=== PATIENT | female | born 1970 | race Caucasian/White ===

== ENCOUNTER 2018-09-17 08:09 | Outpatient (CLI) | payer BC, SELFPAY ==
--- NOTE | 2018-09-17 08:55 | DI.MAMMO_ITS ---
SYMPTOMS/DIAGNOSIS: SCREENING, Z12.31, 95-pound weight loss in last year MAMMOGRAMS: Mammograms were interpreted according to the usual protocol including computer analysis with CAD system, tomosynthesis and C view imaging. Comparison is with the prior examinations. No suspicious masses or microcalcifications are seen. There is increased breast asymmetry in the upper central left breast when compared with the prior examination. This may be due to the patient's weight loss. Spot compression views requested for further evaluation. Ultrasound may be indicated at that time. The skin and axillae are unremarkable. IMPRESSION: Additional views of the left breast as described above. Category 0, breast density C. MQSA ASSESSMENT OF FINDINGS: Incomplete: Needs additional imaging evaluation. Category 0. Patient will receive a letter notifying them of these results. Bi-RADS category C. The breasts are heterogeneously dense, which may obscure small masses.
== END 2018-09-17 08:29 ==
PROVIDERS: PCP Nurse Practitioner Family; Visit Provider Nurse Practitioner Family
DX: Z12.31 Encounter for screening mammogram for malignant neoplasm of breast (principal); R92.8 Other abnormal and inconclusive findings on diagnostic imaging of breast; R63.4 Abnormal weight loss
CPT/HCPCS: 77063; 77067

== ENCOUNTER 2018-09-24 00:59 | Outpatient (CLI) | payer BC, SELFPAY ==
--- NOTE | 2018-09-24 10:17 | DI.COMBO_ITS ---
SYMPTOMS/DIAGNOSIS: F/U ABNORMAL MAMMO, INCREASED BREAST ASYMMETRY UPPER CENTRAL LEFT BREAST ADDITIONAL MAMMOGRAPHIC VIEWS AND LEFT BREAST ULTRASOUND: Follow-up craniocaudad and mediolateral compression spot films of the left breast were obtained today and reveal heterogeneous fibroglandular densities. No discrete mass is seen. At ultrasound, there is a 3 mm 12 o'clock cyst approximately 1 cm from the nipple. No solid nodule is identified. SUMMARY: No evidence of malignancy, category 2. Yearly screening mammography is recommended. Breast density C. MQSA ASSESSMENT OF FINDINGS: Negative with benign findings. Category 2. Patient will receive a letter notifying them of these results. Bi-RADS category C. The breasts are heterogeneously dense, which may obscure small masses.
== END 2018-09-24 01:19 ==
PROVIDERS: PCP Nurse Practitioner Family; Visit Provider Nurse Practitioner Family
DX: Z12.31 Encounter for screening mammogram for malignant neoplasm of breast (principal); R92.8 Other abnormal and inconclusive findings on diagnostic imaging of breast; N60.02 Solitary cyst of left breast
CPT/HCPCS: 76642; 77063; 77067

== ENCOUNTER 2019-04-06 11:56 | Outpatient (REF) | payer OTHER, SELFPAY ==
[2019-04-06 21:05] LABS: BUN 14 mg/dL (7-18); CREATININE 0.71 mg/dL (0.55-1.02); Calcium 9.3 mg/dL (8.5-10.1); Calculated LDL 132 mg/dL (<100); Chloride 103 mmol/L (98-107); Cholesterol 220 mg/dL (<200); Glucose 89 mg/dL (74-106); HDL Cholesterol 73 mg/dL (40-60); Potassium 4.5 mmol/L (3.5-5.1); Sodium 141 mmol/L (136-145); Triglyceride 76 mg/dL (<150)
== END 2019-04-06 12:16 ==
LOC: NCHCN 11:56
PROVIDERS: PCP Nurse Practitioner Family; Visit Provider Nurse Practitioner Family
DX: E78.5 Hyperlipidemia, unspecified (principal); I10 Essential (primary) hypertension; E66.9 Obesity, unspecified; N39.3 Stress incontinence (female) (male); F41.8 Other specified anxiety disorders; R05 Cough
CPT/HCPCS: 80048; 80061

== ENCOUNTER 2019-10-19 00:44 | Outpatient (CLI) | payer OTHER, SELFPAY ==
--- NOTE | 2019-10-19 | DI.MAMMO_ITS ---
EXAM: MAMMO SCREENING CLINICAL HISTORY: SCREENING, YEARLY,Z12.31 TECHNIQUE: Mammograms were interpreted according to the usual protocol including computer analysis w [employer] CAD system, tomosynthesis and C-view imaging. COMPARISON: FINDINGS: The breasts are heterogeneously dense. There are scattered a punctate microcalcifications seen throu ghout both breasts. No dominant mass seen. Comparison with prior examinations including August 2018 s hows no gross interval change appearance of the scattered microcalcifications. No new significant cl umped microcalcification seen. IMPRESSION: No specific evidence of malignancy at this time. Routine screening examinations are suggested at yea rly intervals due to the family history of breast carcinoma. BI-RADS Cat 1 - Negative Breast Density - Category C - Heterogeneously dense
== END 2019-10-19 01:04 ==
PROVIDERS: PCP Nurse Practitioner Family; Visit Provider Nurse Practitioner Family
DX: Z12.31 Encounter for screening mammogram for malignant neoplasm of breast (principal); R92.2 Inconclusive mammogram; R92.0 Mammographic microcalcification found on diagnostic imaging of breast
CPT/HCPCS: 77063; 77067

== ENCOUNTER 2019-11-20 08:09 | Day surgery (SDC) | payer OTHER, SELFPAY ==
[2019-11-20 08:20] VITALS: BP 141/98; PULSE 115; RESP 20; TEMP 36.4; O2SAT 100
[2019-11-20] MEDS: Lactated Ringers 1,000 ML 80 ML IV (08:40)
--- NOTE | 2019-11-20 09:38 | W.PM.DSUDISC ---
Discharge Plan Disposition Patient Disposition: HOME Condition: Good Discharge Details Reason For Visit: Colonoscopy Attending Provider: Dianna Otero Primary Care Provider: Adelia Esquivel Home Meds and New Rx's Prescriptions: Continued bupropion HCl 100 mg tablet sustained-release 12 hr 100 mg PO TID RF: 0 losartan 25 mg tablet 25 mg PO BID RF: 0 benzonatate 100 mg capsule 100 mg PO BID PRNRF: 0 cetirizine [Zyrtec] 10 mg tablet 10 mg PO DAILY RF: 0 multivitamin Capsule 1 cap PO DAILY RF: 0 Mirena 20 mcg/24 hours (5 yrs) 52 mg intrauterine device 1 device IY ONCE RF: 0 albuterol sulfate [Ventolin HFA] 90 mcg/actuation HFA aerosol inhaler 2 puff IH Q6H PRNRF: 0 fluticasone propionate 50 mcg/actuation spray,suspension 1 spray INTRANASAL DAILY PRNRF: 0 Discontinued polyethylene glycol 3350 17 gram/dose powder 238 g PO ONCE Qty: 238 RF: 0 bisacodyl [Dulcolax (bisacodyl)] 5 mg tablet,delayed release (DR/EC) 5 mg PO ONCE Qty: 4 RF: 0 Discharge Instructions Additional Instructions: Findings: Three small colon polyps were removed. My office will send a letter with biopsy results. Follow up: Plan for a colonoscopy in 5 years pending biopsy results. Please call if you develop: fevers >101.5 Nausea or Vomiting Abdominal pain that is not transient DAY SURGERY UNIT POST COLONOSCOPY INSTRUCTIONS 1. Because there will be medication in your system for the next 24 hours, you may feel a little sleepy. Your coordination will be affected. Therefore: a. Do not drive or operate dangerous equipment for 24 hours. b. Do not drink alcohol beverages for 24 hours (not even beer). c. Plan to go home and rest for the day. 2. Generally there are no restrictions on your activity after a day or so has gone by, but you may feel a bit fatigued for a few days. 3 After you arrive home you may have a light meal and return to a normal diet as you can tolerate it without feeling sick to your stomach. 4. After surgery, you may feel pain or discomfort. This should be only transient, but if it persists please contact your doctor. 5. If there are any questions regarding the findings of your procedure, please feel free to contact your doctor. 6. If you are unable to contact your doctor with a problem, contact the hospital at [phone]. 7. Continue all your regular medications unless directed otherwise. I understand the above instructions and have no questions. Signature of Patient or Responsible Adult Escort Date/Time Name of Responsible Adult Escort Signature of Nurse Date/Time Activity:: Activity as Tolerated Diet:: As Tolerated Discharge Orders Discharge Orders: Discharge Order (Routine); Ordered 11/20/19 Ordered By: Dianna Otero DS: Diagnosis Discharge Diagnosis (1) Colon polyps: Status: Acute
--- NOTE | 2019-11-20 09:39 | W.COLOREPORT ---
Date of service: 11/20/19 Time of Service: 10:30 Colonoscopy Report Date of procedure: 11/20/19 Pre-op diagnosis general: Screening Post-op diagnosis procedure note: other (Descending and sigmoid polyps) Procedure: Colonoscopy with cold forceps polypectomy Surgeon: Dianna Otero Anesthesia proc note operative: MAC Indications: This 49 year old woman presents for her first colonoscopy. She has no symptoms or FH colon cancer. Procedure Description: The patient was placed in the left Tuttle position. Propofol was titrated to sedation. Digital rectal examination revealed no abnormalities. The scope was advanced to the cecum without difficulty. The ileocecal valve and appendiceal orifice were clearly identified. The prep was good. The scope was slowly withdrawn over the course of greater than 6 minutes with no abnormalities seen in the ascending or transverse colon. In the distal descending colon, two less than 1cm polyps were removed with the cold forceps and sent in the same specimen container. A diminuitive polyp was removed from the sigmoid colon. The rectum was normal including on retroflexed view. The patient tolerated the procedure well and was stable to recovery. Plan for follow up colonoscopy in 5 years or sooner if symptoms indicate.
--- NOTE | 2019-11-20 10:07 | BOWEL_PTH ---
PATIENT: Lliliam Munguia LOC: [facility] U#:[id number] AGE/SX: 49/F ROOM: RE11/20/[address]: Dianna Otero MD : 1970 BED: DIS: 11/20/2019 SPEC #: [id number] RECD: 11/20/19 12:26 STATUS: CLEMENCIA REQ #: [id number] ADAM: 11/20/19 10:[address]: Dianna Otero DEPT: Surgical Specimen RECD BY: Neda Cannon ENTERED: 11/20/19 12:27 SP TYPE: Bowel OTHR DR: Adelia Esquivel Tissues: 1 - BIOPSY BOWEL 2 - BIOPSY BOWEL Procedures: GROSS AND MICRO LEVEL 4 Comments: [id number]
== END 2019-11-20 11:15 | disposition home or self-care (01) ==
PROVIDERS: PCP Nurse Practitioner Family; Visit Provider Surgery
PROC: 0DJD8ZZ Inspection of Lower Intestinal Tract, Via Natural or Artificial Opening Endoscopic (ICD-10-PCS; CPT 45378; principal; 2019-11-20 09:30)
DX: Z12.11 Encounter for screening for malignant neoplasm of colon (principal); D12.4 Benign neoplasm of descending colon; D12.5 Benign neoplasm of sigmoid colon
CPT/HCPCS: 45380; 88305; J2001

== ENCOUNTER 2019-12-10 17:03 | Emergency (ER) | payer OTHER, SELFPAY ==
[2019-12-10 17:04] VITALS: BP 161/71; PULSE 91; RESP 22; TEMP 36.6; O2SAT 99
--- NOTE | 2019-12-10 18:08 | W.ED.GENAD ---
Discharge Plan Disposition Patient Disposition: HOME Condition: Stable Discharge Details Clinical Impression: Closed fracture of distal end of left fibula Primary Care Provider: Adleia Esquivel ED Provider: Romaine Lipscomb Home Meds and New Rx's Prescriptions: Continued bupropion HCl 100 mg tablet sustained-release 12 hr 100 mg PO TID RF: 0 losartan 25 mg tablet 25 mg PO BID RF: 0 benzonatate 100 mg capsule 100 mg PO BID PRNRF: 0 cetirizine [Zyrtec] 10 mg tablet 10 mg PO DAILY RF: 0 multivitamin Capsule 1 cap PO DAILY RF: 0 Mirena 20 mcg/24 hours (5 yrs) 52 mg intrauterine device 1 device IY ONCE RF: 0 albuterol sulfate [Ventolin HFA] 90 mcg/actuation HFA aerosol inhaler 2 puff IH Q6H PRNRF: 0 fluticasone propionate 50 mcg/actuation spray,suspension 1 spray INTRANASAL DAILY PRNRF: 0 Discharge Instructions Instructions: Ankle Fracture (ED) Additional Instructions: Please take acetaminophen (tylenol) - 650mg every 6 hours by mouth as needed for pain. Please use orthopedic boot and crutches until cleared by orthopedics. Please contact orthopedics to arrange follow-up. Call tomorrow. Return to the ER for any worsening or new concerning symptoms. Referrals: [facility] [Provider Group] Discharge Data Discharge Date/Time-TO BE ENTERED AT DEPARTURE: 12/10/19 19:16 Medical Decision Making 49-year-old female here after inversion injury on step just prior to arrival, pain with ambulation and tender to palpation lateral malleolus. No proximal lower leg tenderness. Neurovascular intact distally. X-ray of the left ankle was reviewed and interpreted by radiology: Distal left fibular fracture. Equalizer orthopedic walking boot was applied and crutches were provided. Patient was advised to weight-bear as tolerated. Usual and customary discharge instructions were reviewed with the patient. Patient advised to follow-up with orthopedics. [facility] General Date/Time Provider Initiated Documentation: 12/10/19 17:22. Related Data Home Medications Medication Instructions Recorded Confirmed albuterol sulfate 90 mcg/actuation 2 puff IH Q6H PRN 04/21/19 12/10/19 aerosol inhaler benzonatate 100 mg capsule 100 mg PO BID PRN 04/21/19 12/10/19 bupropion HCl 100 mg tablet,12 hr 100 mg PO TID tab 04/21/19 12/10/19 sustained-release cetirizine 10 mg tablet 10 mg PO DAILY 04/21/19 12/10/19 levonorgestrel 20 mcg/24 hours (5 1 device IY ONCE 04/21/19 12/10/19 yrs) 52 mg intrauterine device losartan 25 mg tablet 25 mg PO BID 04/21/19 12/10/19 multivitamin 1 cap PO DAILY 04/21/19 12/10/19 fluticasone propionate 1 spray INTRANASAL DAILY PRN 11/17/19 12/10/19 Allergies Allergy/AdvReac Type Severity Reaction Status Date / Time NSAIDS (Non-Steroidal AdvReac Other (See Unverified 12/10/19 17:08 Anti-Inflamma Comment) General Stated Complaint: Orthopedic JOSE: 4 [facility] Medical History (Updated 12/10/19 @ 18:59 by Romaine Lipscomb MD) Anemia Anxiety Chronic cough Depression Dysmenorrhea Family history of breast cancer Food allergy not active Hyperlipidemia Hypertension Obesity not active Scalp lesion Stress incontinence not active Surgical History History of gastric bypass Social History (Updated 10/30/19 @ 14:15 by SHEILA Mas) Smoking/Tobacco Use Status: Never Alcohol Intake: never Drug use: Never Substance use type: does not use Do you feel safe at home: Yes Do you feel safe in your relationship?: Yes Exam Const General: no acute distress Cardio Rate: regular rate and not tachycardic Rhythm: regular rhythm Skin General skin exam: no rashes or lesions noted Neuro General: patient alert, patient awake and tone normal Extrem General: no edema Left lower extremity: lower leg Details: no tenderness and ankle Details: tenderness Location: of the lateral malleolus and swelling Details: laterally; no lacerations Course Vital Signs Vital signs: Vital Signs Temperature 36.6 C 12/10/19 17:04 Pulse 91 H 12/10/19 17:04 Respiratory Rate 22 12/10/19 17:04 Blood Pressure 161/71 H 12/10/19 17:04 Pulse Oximetry 99 12/10/19 17:04 Temperature 36.6 C 12/10/19 17:04 Temperature Source Skin 12/10/19 17:04 Pulse 91 H 12/10/19 17:04 Respiratory Rate 22 12/10/19 17:04 Respiratory Effort Non-Labored 12/10/19 17:06 Blood Pressure 161/71 H 12/10/19 17:04 Blood Pressure Position Sitting 12/10/19 17:04 Pulse Oximetry 99 12/10/19 17:04 Oxygen Delivery Method Room Air 12/10/19 17:04 Oxygen Flow Rate 0 12/10/19 17:04 Pain Level 6 12/10/19 17:12
--- NOTE | 2019-12-10 18:15 | DI.RAD_ITS ---
EXAM: XR ANKLE LT COMPLETE CLINICAL HISTORY: pain, injury TECHNIQUE: 2D digital imaging was performed. COMPARISON: No exams were available for comparison FINDINGS: BONES: There is a nondisplaced transverse fracture of the distal fibula. The fracture lies below the level of the talar dome. No bony destructive lesion is seen. JOINTS:The ankle mortise is normally aligned. SOFT TISSUE: Soft tissue swelling is seen about the ankle particularly laterally. IMPRESSION: Nondisplaced distal left fibular fracture. DATA REPOSITORY: RADIATION DOSE DELIVERED:
--- NOTE | 2019-12-10 18:24 | DI.VRAD_ITS ---
PROCEDURE INFORMATION: Exam: XR Left Ankle Exam date and time: 12/10/2019 6:11 PM Age: 49 years old Clinical indication: Patient HX: Patient fell today down last step of stairs. Lateral left ankle pain. TECHNIQUE: Imaging protocol: XR Left ankle. Views: 3 or more views. COMPARISON: No relevant prior studies available. FINDINGS: Bones/joints: There is a transverse fracture through the distal left fibula involving the articular surface. There is no definite comminution. No significant displacement. Soft tissues: There is soft tissue swelling in the lateral malleolar region. IMPRESSION: Distal left fibular fracture. Dictated and Authenticated by: Maria Clarke MD. Ordering:FERDINAND Gavin MD
[2019-12-10 19:16] VITALS: BP 128/72; PULSE 80; RESP 18; TEMP 36.6; O2SAT 99
== END 2019-12-10 19:16 | disposition home or self-care (01) ==
PROVIDERS: Emergency Provider Student in an Organized Health Care Education/Training Program; PCP Nurse Practitioner Family
DX: S82.62XA Displaced fracture of lateral malleolus of left fibula, initial encounter for closed fracture (principal); X50.9XXA Other and unspecified overexertion or strenuous movements or postures, initial encounter; I10 Essential (primary) hypertension
CPT/HCPCS: 27786; 73610; E0114; L4361

== ENCOUNTER 2019-12-24 11:27 | Outpatient (CLI) | payer OTHER, SELFPAY ==
--- NOTE | 2019-12-24 11:15 | DI.RAD_ITS ---
EXAM: XR ANKLE LT COMPLETE CLINICAL HISTORY: L ankle fx TECHNIQUE: COMPARISON: CR,XR XR ANKLE LT COMPLETE from 12/10/2019 FINDINGS: Three views were obtained and show previously described fracture of the distal fibula, no gross inter endy change in alignment of the fracture fragments comparison with previous examination December 09. The ankle mortise appears well maintained. IMPRESSION: RADIATION DOSE DELIVERED: Total DLP
== END 2019-12-24 11:47 ==
LOC: DIORS 11:29
PROVIDERS: PCP Nurse Practitioner Family; Referring Provider Nurse Practitioner Family; Visit Provider Physician Assistant
DX: S82.892A Other fracture of left lower leg, initial encounter for closed fracture (principal)
CPT/HCPCS: 73610

== ENCOUNTER 2020-01-08 10:55 | Outpatient (CLI) | payer OTHER, SELFPAY ==
--- NOTE | 2020-01-08 10:45 | DI.RAD_ITS ---
EXAM: XR ANKLE LT COMPLETE CLINICAL HISTORY: follow up fracture TECHNIQUE: 2D digital imaging was performed. COMPARISON: CR XR ANKLE LT COMPLETE from 12/24/2019 FINDINGS: BONES: There has been no change in alignment of the distal fibular fracture. The fracture line is st ill visualized. No new fracture or dislocation is present. No bony destructive lesion is seen. JOINTS:The ankle mortise is normally aligned. SOFT TISSUE: There is soft tissue swelling about the ankle. IMPRESSION: Stable distal fibular fracture. DATA REPOSITORY: RADIATION DOSE DELIVERED:
== END 2020-01-08 11:15 ==
PROVIDERS: PCP Nurse Practitioner Family; Referring Provider Nurse Practitioner Family; Visit Provider Student in an Organized Health Care Education/Training Program
DX: S82.492A Other fracture of shaft of left fibula, initial encounter for closed fracture (principal)
CPT/HCPCS: 73610

== ENCOUNTER 2020-02-05 04:57 | Outpatient (CLI) | payer OTHER, SELFPAY ==
[2020-02-05 12:09] LABS: Abs Immature Grans 0.01 10^3/uL (0.0-0.06); Absolute Basophil Count 0.03 10^3/uL (0.0-0.2); Absolute Eosinophil Count 0.11 10^3/uL (0.0-0.7); Absolute Lymphocyte Count 1.68 10^3/uL (1.2-3.4); Absolute Monocyte Count 0.46 10^3/uL (0.1-0.8); Basophils % 0.5; Eosinophils % 1.9; HCT 44.6 % (36.0-46.0); HGB 14.7 g/dL (11.2-15.7); Immature Grans % 0.2; MCH 31.7 pg (27.0-33.0); MCV 96.3 fL (80-95); MPV 9.9 fL (8.0-11.0); Monocytes % 7.9; Neutrophils % 60.5; Nucleated RBC 0 %; Platelet Count 253 10^3/uL (130-400); RBC 4.63 10^6/uL (3.93-5.22); RDW 11.7 % (11.7-14.6); RDW-SD 41.1 fL; WBC 5.79 10^3/uL (4.4-10.8)
[2020-02-05 12:34] LABS: Iron 112 ug/dL (50-170); Total Iron Binding Capacity 291 ug/dL (250-450); Transferrin Sat 38 % (15-50)
[2020-02-05 15:00] LABS: ALT 22 U/L (14-59); AST 15 U/L (15-37); Albumin 4.2 g/dL (3.4-5.0); Alkaline Phosphatase 60 U/L (46-116); BUN 16 mg/dL (7-18); Bilirubin, Total 0.5 mg/dL (0.2-1.0); CREATININE 0.92 mg/dL (0.55-1.02); Calcium 9.2 mg/dL (8.5-10.1); Chloride 103 mmol/L (98-107); Ferritin 62 ng/mL (8-252); Glucose 96 mg/dL (74-106); Sodium 141 mmol/L (136-145); TSH (W/Ref FT4) 0.84 uIU/mL (0.36-3.74); Total Protein 7.9 g/dL (6.4-8.2); Vitamin B12 1450 pg/mL (193-986)
[2020-02-05 15:06] LABS: Folate > 20.0 ng/mL (8.6-20.0)
[2020-02-08 05:19] LABS: Vitamin D 25 Total 53.7 ng/ml (30-100)
[2020-02-08 10:34] LABS: HIV-1/2 Ag & Ab Screen Negative (Negative)
[2020-02-08 10:55] LABS: Hepatitis C Ab w Rflx HCV PCR Negative (Negative)
[2020-02-08 10:56] LABS: Parathyroid Hormone,Intact 47 pg/mL (19-88)
[2020-02-10 12:03] LABS: Thiamine (Vitamin B1), WB 265 nmol/L (70-180)
== END 2020-02-05 05:17 ==
PROVIDERS: PCP Nurse Practitioner Family; Visit Provider Nurse Practitioner Family
DX: N95.1 Menopausal and female climacteric states (principal); R05 Cough; N39.3 Stress incontinence (female) (male); D64.9 Anemia, unspecified; I10 Essential (primary) hypertension; E78.5 Hyperlipidemia, unspecified; F41.8 Other specified anxiety disorders; E66.9 Obesity, unspecified; Z11.4 Encounter for screening for human immunodeficiency virus [HIV]; Z11.59 Encounter for screening for other viral diseases
CPT/HCPCS: 36415; 80053; 82306; 86803; 87389; 82607; 82728; 82746; 83540; 83550; 83970; 84425; 84443; 85025

== ENCOUNTER 2020-02-05 11:16 | Outpatient (CLI) | payer OTHER, SELFPAY ==
--- NOTE | 2020-02-05 10:30 | DI.RAD_ITS ---
EXAM: XR ANKLE LT COMPLETE INDICATION: f/u fracture. COMPARISON: CR XR ANKLE LT COMPLETE from 01/08/2020 TECHNIQUE: 2D digital imaging was performed. FINDINGS: There has been no change in the alignment of the lateral malleolar fracture. There has been some inc rease in healing since the prior exam. Some soft tissue swelling remains present. A heel spur is ag ain noted. DATA REPOSITORY: RADIATION DOSE DELIVERED:
== END 2020-02-05 11:36 ==
PROVIDERS: PCP Nurse Practitioner Family; Referring Provider Nurse Practitioner Family; Visit Provider Student in an Organized Health Care Education/Training Program
DX: S82.62XA Displaced fracture of lateral malleolus of left fibula, initial encounter for closed fracture (principal); M77.32 Calcaneal spur, left foot
CPT/HCPCS: 73610

== ENCOUNTER 2021-04-04 10:43 | Outpatient (REF) | payer BC, SELFPAY ==
[2021-04-04 14:24] LABS: Abs Immature Grans 0.01 10^3/uL (0.0-0.06); Absolute Basophil Count 0.02 10^3/uL (0.0-0.2); Absolute Eosinophil Count 0.06 10^3/uL (0.0-0.7); Absolute Lymphocyte Count 1.19 10^3/uL (1.2-3.4); Absolute Monocyte Count 0.34 10^3/uL (0.1-0.8); Absolute Neutrophil Count 2.87 10^3/uL (1.2-6.7); Basophils % 0.4; Eosinophils % 1.3; HCT 46.7 % (36.0-46.0); Immature Grans % 0.2; Lymphocytes % 26.5; MCH 30.9 pg (27.0-33.0); MCHC 32.1 % (32.0-36.0); MCV 96.3 fL (80-95); MPV 10.5 fL (8.0-11.0); Monocytes % 7.6; Nucleated RBC 0 %; Platelet Count 211 10^3/uL (130-400); RBC 4.85 10^6/uL (3.93-5.22); RDW 11.9 % (11.7-14.6); RDW-SD 42.6 fL; WBC 4.49 10^3/uL (4.4-10.8)
[2021-04-04 14:47] LABS: Iron 113 ug/dL (50-170); Total Iron Binding Capacity 320 ug/dL (250-450); Transferrin Sat 35 % (15-50)
[2021-04-04 15:17] LABS: ALT 24 U/L (14-59); AST 17 U/L (15-37); Albumin 4.3 g/dL (3.4-5.0); Alkaline Phosphatase 70 U/L (46-116); Anion Gap 8.9 mmol/L (3-11); BUN 12 mg/dL (7-18); Bilirubin, Total 0.4 mg/dL (0.2-1.0); CO2 28.1 mmol/L (21.0-32.0); CREATININE 0.7 mg/dL (0.55-1.02); Calcium 9.3 mg/dL (8.5-10.1); Calculated LDL 146 mg/dL (<100); Chloride 104 mmol/L (98-107); Cholesterol 239 mg/dL (<200); Ferritin 44 ng/mL (8-252); Glucose 87 mg/dL (74-106); HDL Cholesterol 73 mg/dL (40-60); Magnesium 2.2 mg/dL (1.8-2.4); Potassium 3.7 mmol/L (3.5-5.1); Sodium 141 mmol/L (136-145); TSH (W/Ref FT4) 1.31 uIU/mL (0.36-3.74); Total Protein 8.2 g/dL (6.4-8.2); Triglyceride 104 mg/dL (<150); Vitamin B12 909 pg/mL (193-986)
[2021-04-04 15:19] LABS: Folate > 20.0 ng/mL (8.6-20.0)
[2021-04-06 00:10] LABS: Vitamin D 25 Total 44.5 ng/mL (30-100)
== END 2021-04-04 10:44 | disposition home or self-care (01) ==
LOC: NCHCN 10:43
PROVIDERS: PCP Nurse Practitioner Family; Visit Provider Nurse Practitioner Family
DX: I10 Essential (primary) hypertension (principal); E78.5 Hyperlipidemia, unspecified; R05.8 Other specified cough; F41.8 Other specified anxiety disorders; N94.6 Dysmenorrhea, unspecified; E66.8 Other obesity; D64.9 Anemia, unspecified
CPT/HCPCS: 80053; 80061; 82306; 82607; 82728; 82746; 83540; 83550; 83735; 84443; 85025

== ENCOUNTER 2021-05-23 01:27 | Outpatient (CLI) | payer BC, SELFPAY ==
--- NOTE | 2021-05-23 | DI.MAMMO_ITS ---
Exam(s) MAMMO SCREENING EXAM: MAMMO SCREENING CLINICAL HISTORY: SCREENIG MAMMO FOR BREAST CANCER Z12.31 TECHNIQUE: Bilateral full field digital CC and MLO mammographic images were obtained with 3D tomosyn thesis and utilizing computer aided detection (CAD). COMPARISON: Available for comparison. FINDINGS: Masses/Architectural Distortion: None seen. Microcalcifications: No suspicious pleomorphic-type are seen. Skin Thickening/Nipple Retraction: None. IMPRESSION: 1. No significant interval change with no specific features of malignancy noted. 2. Unless there is more urgent need, screening mammography is recommended, as per [employer] guidelines. BI-RADS Category 1 - Negative Breast Density - Category C - Heterogeneously dense Breast density category C or D implies that the patient has dense breast tissue. Dense breast tissue is very common and is not abnormal but dense breast tissue can make it harder to find cancer on a ma mmogram. Also, dense breast tissue may increase their breast cancer risk. This information about the result of the mammogram report was provided to the patient to raise their awareness. Use this report when you speak with the patient about their risks for breast cancer, which includes their family hist ory. At that time, you may recommend for more screening tests (Ultrasound or MRI) as they might be us eful based on their risk. A negative radiographic report should not delay biopsy if a dominant or clinically suspicious mass is present. Up to ten percent of cancers are not identified on mammography. A negative report may reinforce clinical impression. Adenosis and dense breasts may obscure an underlying neoplasm. False positive reports average 6 to 10%. Patient will receive a letter notifying them of these results.
== END 2021-05-23 01:47 ==
PROVIDERS: PCP Nurse Practitioner Family; Visit Provider Nurse Practitioner Family
DX: Z12.31 Encounter for screening mammogram for malignant neoplasm of breast (principal)
CPT/HCPCS: 77063; 77067

== ENCOUNTER 2021-07-21 09:24 | Outpatient (REF) | payer BC, SELFPAY ==
--- NOTE | 2021-07-21 08:45 | PAPFT_PTH ---
PATIENT: Lilliam Munguia LOC: NCN #:[id number] AGE/SX: 51/F ROOM: RE07/21/[address]: Adelia Esquivel : 1970 BED: DIS: 07/21/2021 SPEC #: [id number] RECD: 07/21/21 17:06 STATUS: CLEMENCIA TRAN #: [id number] ADAM: 07/21/21 08:[address]: Adelia Esquivel DEPT: [facility] Cytology RECD BY: Neda Cannon Tissues: 1 - CX/ENDOCX FOR PAP SMEARS Procedures: PAP THIN PREP/UVM Screening HPV DNA PROBE Comments: [id number]
== END 2021-07-21 09:25 | disposition home or self-care (01) ==
LOC: NCHCN 09:24
PROVIDERS: PCP Nurse Practitioner Family; Visit Provider Nurse Practitioner Family
DX: Z12.4 Encounter for screening for malignant neoplasm of cervix (principal); Z11.51 Encounter for screening for human papillomavirus (HPV); Z00.00 Encounter for general adult medical examination without abnormal findings; Z01.419 Encounter for gynecological examination (general) (routine) without abnormal findings
CPT/HCPCS: 88142; 87624

== ENCOUNTER 2022-01-13 19:37 | Outpatient (REF) | payer BC, SELFPAY ==
--- OUTSIDE RECORDS SUMMARY | 2022-01-13 19:38 | XMS_ITS | Encounter Summary ---
:1970 Author Organization [facility] [place] [place] [address] Care Team Providers Name Role Phone Adelia Esquivel APRN Primary Care Provider [phone] Encounter Details Date Type Department Care Team Description 06/07/2020 Telephone General Surgery at [facility] [place] [phone] Social History Tobacco Use Types Packs/Day Years Used Date Smoking Tobacco: Never Smokeless Tobacco: Never Alcohol Use Standard Drinks/Week Comments No 0 (1 standard drink = 0.6 oz pure alcoho l) Sex Assigned at Date Recorded Not on file documented as of this encounter Miscellaneous Notes Telephone Encounter - Connie Smith - 06/07/2020 9:54 AM EDT Left message to see if patient is interested in scheduling a annual follow-up visit. I asked them togive us a call back to set up an appointment and let them know that I will be mailing them a letter in the mail. documented in this encounter Plan of Treatment Not on filedocumented as of this encounter Visit Diagnoses Not on filedocumented in this encounter Care Teams Certified Personal Finance Counselor Relationship Specialty Start Date End Date Adelia Esquivel APRN PCP - General Family Medicine 09/30/17 [address] [place] [address] documented as of this encounter
--- OUTSIDE RECORDS SUMMARY | 2022-01-13 19:38 | XMS_ITS | Encounter Summary ---
:1970 [place] [address] Care Team Providers Name Role Phone Adelia Esquivel APRN Primary Care Provider [phone] Encounter Details Date Type Department Care Team Description 05/27/2019 Telephone General Surgery at [facility] [place] [place] [phone] Social History Tobacco Use Types Packs/Day Years Used Date Smoking Tobacco: Never Smokeless Tobacco: Never Alcohol Use Standard Drinks/Week Comments No 0 (1 standard drink = 0.6 oz pure alcoho l) Sex Assigned at Date Recorded Not on file documented as of this encounter Miscellaneous Notes Telephone Encounter - Genesis Zamora - 05/27/2019 10:19 AM EDT Spoke with Lilliam re: her upcoming BSP appt on 06/14. She would like to postpone it for now, phone visit was offered but declined. Will follow up with her at a later date. Recall was entered documented in this encounter Plan of Treatment Not on filedocumented as of this encounter Visit Diagnoses Not on filedocumented in this encounter Care Teams Lapping Machine Tender Relationship Specialty Start Date End Date Adelia Esquivel APRN PCP - General Family Medicine 09/30/17 [address] [place] [address] documented as of this encounter
--- OUTSIDE RECORDS SUMMARY | 2022-01-13 19:38 | XMS_ITS | Encounter Summary ---
:1970 Author Organization [facility] [place] [address] Care Team Providers Name Role Phone Adelia Esquivel APRN Primary Care Provider [phone] Reason for Visit Reason Comments Follow-up s/p bariatric surgery Encounter Details Date Type Department Care Team Description 11/19/2018 Office Visit General Surgery at Clementina Casanova APRN [facility] [address] [facility] [place] [address] Hypertension, unspecified type; [facility] [address] [facility] [place] [address] Cough, persistent; [facility] Impetigo; [facility] Disorder of iron metabolism; [place], [place] Status post bar iatric surgery; [id number] Intestinal malabsorption, un specified type; [phone] Iron deficiency Social History Tobacco Use Types Packs/Day Years Used Date Smoking Tobacco: Never Smokeless Tobacco: Never Alcohol Use Standard Drinks/Week Comments No 0 (1 standard drink = 0.6 oz pure alcoho l) Sex Assigned at Date Recorded Not on file documented as of this encounter Last Filed Vital Signs Vital Sign Reading Time Taken Comments Blood Pressure 156/98 11/19/2018 11:47 AM EDT Pulse 101 11/19/2018 10:30 AM EDT Temperature - - Respiratory Rate - - Oxygen Saturation 100% 11/19/2018 10:30 AM EDT Inhaled Oxygen Concentration - - Weight 72.1 kg (159 lb) 11/19/2018 10:30 AM EDT Height - - Body Mass Index 24.9 05/19/2018 9:44 AM EDT documented in this encounter Patient Instructions Patient InstructionsClementina Casanova, INGREDIENT SCALER HELPER - 11/19/2018 10:30 AM EDT [facility] network support manager Connie [phone] and [employer] [phone] Dietitians: [phone] Surgeons/ nurse practitioners: [phone] and [phone] Nurse line: [phone] Testing: Labwork: Today. Go to [facility], which is 1 flight below the General Surgery Clinic. I will notify you via [facility] regarding your results and recommendations A copy of your labwork and office visit today is sent to your primary healthcare or medical Next visit: 6 months Routine visits are done at 4.8,12, 18 and 24 months after surgery, and yearly thereafter. Please call [phone] if you do not receive an appointment by 3-4 weeks prior to the expected visit. Medications: 1. I ordered bactroban for your skin lesions, it looks like impetigo, if it does not respond within 10-14 days we may want to refer to derm 2. As far as pelvic pain, I think it may be related to the progesterone in your mirena which can cause an increase in ovarian cysts. I recommend reaching out to women's health, an intravaginal ultrasound may be indicated. 3. Your back pain seems like sacro iliac joint pain, which may be related to your extreme weight change. I recommend starting with a chiropractor to see if they can adjust it If not they will likely refer you as needed. 4. I think your cough is related to post nasal drip related to your allergies, I ordered the tessalon perles and you can use up to 3 times a day as needed for cough 5. For your blood pressure you will start 25mg losartan twice a day, check your blood pressure at home at least once a day. Follow up with your PCP at some point 6. We will check your iron and protein today, your iron was borderline high last time, I'll let you know how it is when it is back. Referrals: will consider a referral to derm for your skin. Vitamins: The following vitamins are recommended: ??? Multivitamins with minerals twice daily- needs to be an under 50 multivitamin that contains iron. No senior multivitamins. (Or read the serving size if taking a Bariatric specific multivitamin such as procare). ??? Vitamin B12 500 mcg by mouth once daily ??? Calcium citrate 600 mg with Vitamin D 400 units twice daily (600 mg in AM and 600 mg in PM- 2 pills twice a day) (or 1 chewable twice a day) ??? Iron with Vitamin C, 50-66 mg once daily (take iron with vitamin C 250 mg to help with absorption) only if you have regular periods, iron deficiency or anemia. Nutrition recommendations: - Your Daily Goals: ?? 1,000-1,200 calories per day (300 calories per meal, 100 calories per snack, 1-2 snacks per day) ?? 60 grams of protein per day (20 grams per meal) ?? 48-64 oz of non-caloric and hydrating fluids per day (6-8, 8 oz cups) ?? Do not drink with meals- pushes food through more quickly, can cause upset stomach Activity: ??? Aim for 30 minutes of exercise daily, 5 days a week of both cardio and strength training exercises. Alcohol: should be used sparingly, no more than one drink per occasion. Alcohol is a source of emptycalories and can cause ulcers and vitamin and mineral deficiencies. Alcohol is toxic to the liver and is absorbed more quickly after surgery, it stays in the system longer. Studies have noted that there is an increased risk of alcohol dependence after bariatric surgery. Alcohol is not recommended until at least 6-12 months post surgery, and after goal weight has been achieved f non-prescribed drugs and treet drugs is unsafe Anti-inflammatory medications such as Ibuprofen (Advil), Aleve (Naproxen), Excedrin, should be used sparingly after gastric bypass, since they increase the risk of ulcer and bleeding. Hair Loss: is associated with rapid weight loss and is seen approximately 3 to 6 months after surgery and can last 3 to 6 months. It is almost always temporary. Eating a healthy diet with 60 grams of protein per day and taking your multivitamin with minerals will help. Call us: ??? If you have concerns. ??? If you have unexplained abdominal pain. ??? if you see blood in your stool or vomit blood ??? If you have prolonged vomiting Post Surgery Support Group: Our post surgery support group meets on the first Saturday of every month from 1-2 PM and the saturday of every month from 4:30- 5:30 PM at [facility]. No registration is required Nutrition and Activity apps- Baritastic, My Fitness Pal, Lose It Internet resources: www.[employer] www.[employer] www.bariatriceaCatchoom.[employer] www.MeetBall.[employer]/blog [facility] facebook page: https://www.facebook.com/[facility] Books & Magazines: - Recipes for Life After Weight Loss Surgery by Zulma Boothe - Shrink Yourself by Dr Luis Angeles - Eating Well - www.ModusP - Cooking Light- www.AchieveIt Online.[employer] documented in this encounter Progress Notes Clementina Casanova APRN - 11/19/2018 10:30 AM EDT Reason for Visit: post op check,??S/P laparoscopic Jaymie-en-Y gastric bypass with intraoperative endoscopy on 07/11/2017 ?? Complications summary: Early none Late - ?? Visits summary: Compliance with [facility] follow up: good Attendance at [facility] post-operative graduate support group meetings:none Pre-op 04/04/2017 Wt (lbs) 248 BMI 38.8 Visit #2 WT: HT: 67 ? Post-op ? %EBW lost Supplement compliance Labwork 08/07/2017 217 34 ??35 Good, see RD note -at next visit, 4 month post op ??11/08/2017 ??186 ??69 ??29.2 ??good has been taking procare but feels tired, felt better on bariatric fusion 4x a day so plans to go back to that Labs today?? 05/19/2018 143 22.4 119 Taking fusion 4 times a day Complete labs today 11/19/[address] Iron, pre albumin, hemogram today ? Date Evaluation Results 10/12 Primary care?? Post op check, swollen lymph node, treated and resolved 07/11/17 EGD Intra op N/a?? Colonoscopy ?? Visits to emergency department or other unplanned visit to a health care facility since last visit? None Changes to health/ evaluations/ social history since last visit: as per updated problem list and e-DH Subjective. Patient concerns at today's visit: Lilliam returns for routine follow up. Her blood pressure has been running higher. Ambulatory blood pressures have been running higher as well. 163/109, 132/80 and everything in between. Skin lesions- she has had some crusty skin lesions on her head and back, she has had this in the past, they are not painful or itchy, she does not know what is causing them, no known exposures, no contact with any new products Cough- she has a cough intermittently related to PND from her allergies, tessalon perles have helped, she would like a refill Back pain: Lilliam has been having back pain that started in July, she went to bed one night and her back started aching, she denies any injury at all, mainly on left low back that sometimes radiates to the right, does not travel down legs, no weakness related to it, sometimes tylenol helps, sometimes she also has pain in her low abdomen that seems to accompany the back pain. She has a mirena. It has steadily gotten worse since it started. Does not get worse or better with exercise, the worst is when she rides in a car or sleeps. Keeps her awake at night. Painful to reposition. No history of back problems. Pelvic pain/low abdominal pain- as above, intermittent, she has mirena, spots here and there. Benefits since surgery: very happy about weight loss and overall feeling better Future goals: would like to maintain, continue to work on fitness Bowel regimen: no problems NSAID use: None Dietary history/ exercise/ activity level: See dietitian note. 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 3 kids all grown Health-related habits: Tobacco: none Alcohol: None Objective: General: Lilliam is a pleasant, engaged, appropriate, healthy appearing 48 y.o. year-old female who appears stated age, NAD Heart: S1S2 distinct, no extra sounds or murmurs, RRR Lungs: Clear all lobes A&P, effort minimal, pattern regular Abdomen: soft, non-tender, no masses, no rebound, +BS. Abdominal trocar sites pale lines, no induration, no erythema Low back- non tender, full rom without pain Skin: multiply erythematous, excoriated lesions on head and in her left ear with yellow crust Extremities: No LE edema, pulses present Vital signs: BP (!) 181/95 Pulse (!) 101 Wt 72.1 kg (159 lb) SpO2 100% BMI 24.90 kg/m?? Rechecked bp 156/98 Today's labs: Recent Results (from the past 72 hour(s)) Prealbumin Result Value Ref Range Prealbumin 23 20 - 40 mg/dL Ferritin Result Value Ref Range Ferritin 72 15 - 150 ng/mL Iron and TIBC Result Value Ref Range Iron 119 30 - 150 mcg/dL TIBC 277 250 - 450 mcg/dL Iron Saturation 43 20 - 50 % Hemogram Result Value Ref Range WBC 6.4 4.0 - 9.5 x10(3)/mcL RBC 4.77 4.00 - 5.21 x10(6)/mcL Hemoglobin 15.4 11.7 - 15.5 gm/dL Hematocrit 44.6 35.7 - 45.8 % MCV 93.5 82.6 - 94.4 fL MCH 32.3 (H) 27.1 - 32.0 pg MCHC 34.5 31.7 - 35.0 gm/dL Platelets 208 145 - 357 x10(3)/mcL RDWSD 40.6 37.0 - 46.0 fL RDWCV 11.7 11.5 - 14.1 % MPV 9.9 7.6 - 12.9 fL nRBC % Auto 0.0 % nRBC Abs Auto 0.000 0.000 - 0.000 x10(3)/mcL reviewed, all within normal. Assessment: S/P RNY, with loss of 101 % of excess body weight. Encounter Diagnoses Name ??? Hypertension, unspecified type Restart losartan 25mg BID, ambulatory bp monitoring at home, follow up with pcp ??? Cough, persistent Tessalon perles as needed for management of cough related to PND-reviewed medication use, effects, side effects, she has used in the past with relief. ??? Impetigo Likely impetigo, will try treating with bactroban, if sx persist or worsen recommend referral to dermatology for evaluation ??? Disorder of iron metabolism Stable, continue current supplements ??? Status post bariatric surgery Continue with dietary and supplement guidelines as she has, continue regular exercise, recommend chiropractic for evaluation of back pain ??? Intestinal malabsorption, unspecified type Stable post op, continue current supplements ??? Iron deficiency Stable continue to alternate fusion with/without iron every other day Plan: as above ?? Lilliam was congratulated on her ongoing healthy lifestyle efforts ?? E- medical record since last BSP visit reviewed ?? Advised to discuss a baseline bone density scan with her primary healthcare or medical ?? Next BSP visit: 6 months, sooner if indicated ?? Next labwork: 6 months, sooner if needed ?? Additional vitamin and mineral supplement recommendations (*in addition to usual post surgery supplements, as noted below): continue current ?? dietary/ exercise recommendations per RD ?? Advised to call if develops unexplained abdominal pain, concerns or questions ?? Constipation strategies discussed. ?? provided with a December 2012 edition of One Year and Beyond bariatric surgery, a resource regarding supplements, diet, recommendations for patients > 1 year post-operatively She was provided with a Bariatric Program Summary report which included the above recommendations, as well as information on vitamin and mineral supplementation, fluids, exercise and support group meetings. She has had an opportunity to have all her questions answered and is in agreement with the plan of care. Lilliam was advised of lab results via [facility] per patient request. RECOMMENDED BARIATRIC SURGERY PROGRAM POSTOPERATIVE FOLLOW-UP: Follow up: done at 4, 8,12 and 18 and 24 months, and yearly thereafter. High risk patients are evaluated on a more frequent basis. *Supplement recommendations: Multivitamin with minerals twice a day, B12 500 mcg once a day, calcium citrate 600 mg/400 units vitamin D twice a day, iron (ferrous fumarate, polysaccharide iron taken with vitamin C 250 mg once a day) for menstruating females or those with RAFAEL. Labwork: Hemogram, ferritin, iron (transferrin) saturation, iron, folate, Vitamins B1, B12, D (25 hydroxy only), Intact PTH and comprehensive metabolic profile at 4, 12 and 24 months, and yearly. Prealbumin is done at 4 and 12 months and PRN. If labwork is done by the primary healthcare or medical: please send a copy to the Bariatric Surgery Program, General Surgery Clinic, [facility], Questions regarding [facility] Bariatric Surgery Program patients: please call the Bariatric Surgery Program at [phone] Clementina Casanova APRN - 11/19/2018 10:30 AM EDT Hi Renny, Great to see you today! Your labs look good, so keep doing what you have been, your levels are rightwhere they should be which is great! Let me know if you have any questions. Make sure you see your PCP to follow up on your blood pressure! Clementina documented in this encounter Plan of Treatment Not on filedocumented as of this encounter Procedures Procedure Name Priority Date/Time Associated Diagnosis Comme nts HC HEMOGRAM Routine 11/19/2018 12:08 PM Disorder of iron Resu lts for this EDT metabolism procedure are in Status post the results bariatric surger y section. Intestinal malabsorption, unspecified type Hypertension, unspecified type Iron deficiency HC IRON BINDING Routine 11/19/2018 12:08 PM Disorder of iron R esults for this CAPACITY EDT metabolism procedure are in Status post the results bariatric surger y section. Intestinal malabsorption, unspecified type Hypertension, unspecified type Iron deficiency HC PREALBUMIN, Routine 11/19/2018 12:08 PM Disorder of iron Re sults for this SERUM EDT metabolism procedure are in Status post the results bariatric surger y section. Intestinal malabsorption, unspecified type Hypertension, unspecified type Iron deficiency HC FERRITIN, SERUM Routine 11/19/2018 12:08 PM Disorder of iro n Results for this EDT metabolism procedure are in Status post the results bariatric surger y section. Intestinal malabsorption, unspecified type Hypertension, unspecified type Iron deficiency documented in this encounter Results Prealbumin (11/19/2018 12:08 PM EDT) athologist Signature Prealbumin 23 20 - 40 [place] mg/dL [facility] Comment: Prealbumin levels are generally lower in the pediatric population; adult concentrations are usually attained near puberty. Specimen Anatomical Collection Method Collection Time Receive d Time (Source) Location / / Volume Laterality Blood specimen 11/19/2018 12:08 9 (specimen) PM EDT 12:18 PM EDT Resulting Agency Comment Spec In Lab Clementina Casanova APRN CHEMISTRY ORDERABLES Performing Organization Address City/State/ZIP Code Phon e Number [address] Ferritin (11/19/2018 12:08 PM EDT) athologist [facility] Ferritin 72 15 - 150 [place] ng/mL [facility] Comment: Pediatric reference ranges not verified at [facility], interpret with caution. Reference ranges for females greater jose n 50 years of age approach values for men, i.e., 30-400 ng/mL. Specimen Anatomical Collection Method Collection Time Receive d Time (Source) Location / / Volume Laterality Blood specimen 11/19/2018 12:08 9 (specimen) PM EDT 12:18 PM EDT Resulting Agency Comment Spec In Lab Clementina Jessika Edilberto INGREDIENT SCALER HELPER CHEMISTRY ORDERABLES Performing Organization Address City/State/ZIP Code Phon e Number [address] Iron and TIBC (11/19/2018 12:08 PM EDT) athologist Signature Iron 119 30 - 150 [place] mcg/dL [facility] TIBC 277 250 - 450 [facility] mcg/dL [facility] Iron Saturation 43 20 - 50 % [facility]ORY Specimen Anatomical Collection Method Collection Time Receive d Time (Source) Location / / Volume Laterality Blood specimen 11/19/2018 12:08 9 (specimen) PM EDT 12:18 PM EDT Resulting Agency Comment Spec In Lab Clementina Rosen Edilberto MANE CHEMISTRY ORDERABLES Performing Organization Address City/State/ZIP [place] [address] (ABNORMAL) Hemogram (11/19/2018 12:08 PM EDT) Analysis Performed At Patho logist Time Signature WBC 6.4 4.0 - 9.5 [facility] x10(3)/[facility] LABORATORY RBC 4.77 4.00 - [place] 5.21 [facility] x10(6)/[facility] LABORATORY Hemoglobin 15.4 11.7 - [place] 15.5 gm/dL [facility] Hematocrit 44.6 35.7 - [facility] TRISH 45.8 % [facility] MCV 93.5 82.6 - [facility] 94.4 [facility] LABORATORY MCH 32.3 (H) 27.1 - [facility] TRISH 32.0 pg [facility] MCHC 34.5 31.7 - [facility] 35.[facility] gm/dL [facility] Platelets 208 145 - 357 [facility] x10(3)/[facility] LABORATORY RDWSD 40.6 37.0 - MXA TRISH 46.0 [facility] LABORATORY RDWCV 11.7 11.5 - [facility] 14.1 % [facility] MPV 9.9 7.6 - 12.9 [facility] LABORATORY nRBC % Auto 0.0 % [facility] LABORATORY nRBC Abs Auto 0.000 0.000 - [place] 0.000 [facility] x10(3)/[facility] LABORATORY Specimen Anatomical Collection Method Collection Time Receive d Time (Source) Location / / Volume Laterality Blood specimen 11/19/2018 12:08 9 (specimen) PM EDT 12:18 PM EDT Resulting Agency Comment Spec In Lab Clementina Casanova MANE HEMATOLOGY ORDERABLES Performing Organization Address City/State/ZIP Code Phon e Number [place] [phone] documented in this encounter Visit Diagnoses Diagnosis Hypertension, unspecified type Cough, persistent Cough Impetigo Disorder of iron metabolism Other disorders of iron metabolism Status post bariatric surgery Bariatric surgery status Intestinal malabsorption, unspecified ty pe Iron deficiency Iron deficiency anemia, unspecified documented in this encounter Care Teams Machine Fitter Relationship Specialty Start Date End Date Adelia Esquivel APRN PCP - General Family Medicine 09/30/17 [address] [place] [address] documented as of this encounter
--- OUTSIDE RECORDS SUMMARY | 2022-01-13 19:38 | XMS_ITS | Encounter Summary ---
:1970 Author Organization [facility] [place] [address] Care Team Providers Name Role Phone Adelia Esquivel APRN Primary Care Provider [phone] Reason for Visit Reason Comments Skin Lesion Consultation (Routine) - Authorized Specialty Diagnoses / Procedures Referred By Contact Refer red To Contact Dermatology Diagnoses Disorder of the skin and subcutaneous tissue, unspecified Skin lesion on face Adelia Esquivel, [facility] Dermatology [employer] [address] [place] [address] [place] [address] Referral ID Status Reason Start Expiration Visits Visits Date Date Requested Authorized [id number] Authorized Consult, 04/04/2021 04/04/2022 12 12 [facility] PCP Updated and/or Approved Encounter Details Date Type Department Care Team Description 04/26[facility] Dashawn FRANCO Tan angioma; [address] [facility] (seborrheic keratosis) [place] [address] [facility] [place], [place] [address] Social History Tobacco Use Types Packs/Day Years Used Date Smoking Tobacco: Never Smokeless Tobacco: Never Alcohol Use Standard Drinks/Week Comments No 0 (1 standard drink = 0.6 oz pure alcoho l) Sex Assigned at Date Recorded Not on file documented as of this encounter Progress Notes Sangita Ashby MD - 04/26/2021 2:20 PM EST Images from the original note were not included. DEPARTMENT OF DERMATOLOGY [facility] D[facility] Provider: Sangita Ashby MD Patient's preferred name Lilliam Preferred contact method for results [x]Phone (Cell) [x]myD-H []Letter Detailed phone message OK? Yes Are there any other people with whom we may discuss your care? (Josh) Past Medical History Date, location, treatment Melanoma No Dysplastic nevi No SCC No BCC No AKs No UV Exposure & Protection + Severe sunburns, none blistering + History of tanning bed use (few times) Other relevant past medical history Hx of cold sores, pilar cysts, milia Family History Details Melanoma No NMSC No Other relevant family history No Social History PRE-PROCEDURE SCREENING Details Allergy to lidocaine, epinephrine, Dermabond, chlorhexidine, or adhesives No Bleeding disorder or blood thinners No Pacemaker, defibrillator, deep brain stimulator, cochlear implant No History of Present Illness: Lilliam Munguia is a 51 y.o. Patient is new and self-referred (previously seen by Dr. Warren 11/26/17 for a focused exam); she presents to the clinic today for a focused exam with the following concerns: - Few scabbed feeling lesions scattered on the scalp. Says scalp is not itchy overall; however, she finds herself picking and scratching at these lesions. Unsure whether these start as small bumps. - Longstanding red lesion on the right baptist; not bothersome. - Longstanding light brown, smooth lesion on the right lateral lower leg. Not bothersome. Medications: Reviewed in eD-H Allergies: Reviewed in eD-H Skin Examination: Focused skin examination of the scalp, right baptist, right lateral lower leg was normal with the exception of the findings below. Assessment/Plan A. Scalp Excoriations +/- Mild Folliculitis - Few heme-crusted lesions on the vertex scalp with background of mild scale. - Discussed benign nature and provided reassurance. No signs of infection. - Encouraged patient to avoid manipulating, with treatment aimed to break the itch/scratch cycl.e - In the event that there is underlying folliculitis, recommended starting Rx clindamycin (Cleocin T) solution: Apply topically to affected areas on the scalp 1-2x/ day as needed; may apply before bed if preferred. B. Tan Angioma - Bright red, well-demarcated papule on the right baptist. - Discussed benign nature and provided reassurance. No treatment necessary. - Briefly reviewed option of cosmetic laser removal if numerous and/or bothersome to patient. Patient is aware that this is considered a cosmetic procedure and not covered by insurance. C. Macular Seborrheic Keratosis - Thin, thibodeaux, well-demarcated, stuck-on plaque on the right lateral lower leg. - Discussed benign nature and provided reassurance. No treatment necessary. Other: ??? N/A RTC: PRN Scribe attestation: Jane Mullins [facility] and Aspen Estrada [facility] have performed the documentationfor this encounter in the presence of and acting as a scribe for Sangita Ashby MD. I performed the above scribed service and agree with the accuracy of the documentation in this encounter. Reviewed and signed by: Sangita Ashby MD Dermatology [facility] Patient seen and evaluated with staff senior executive assistant: Carolyn Pat MD Dermatology [facility] Carolyn Pat MD - 04/26/2021 2:20 PM EST I directly supervised the Dermatology resident during this office visit. The resident presented the history and physical exam to me. I then saw and examined this patient with the resident. We reviewed the history and pertinent details and I confirmed the physical findings. I agree with the details of the history and physical exam as documented in the resident's note. CAROLYN PAT MD Staff Physician documented in this encounter Plan of Treatment Not on filedocumented as of this encounter Visit Diagnoses Diagnosis Folliculitis Other specified disease of hair and hair follicles Tan angioma Nevus, non-neoplastic SK (seborrheic keratosis) Other seborrheic keratosis documented in this encounter Care Teams Supervisor [employer] Relationship Specialty Start Date End Date Adelia Esquivel APRN PCP - General Family Medicine 09/30/17 [address] [place] [address] documented as of this encounter
--- OUTSIDE RECORDS SUMMARY | 2022-01-13 19:38 | XMS_ITS | Encounter Summary ---
:1970 Author Organization [facility] Address [address] [place] [address] Care Team Providers Name Role Phone Unavailable Primary Care Provider Unavailable Encounter Details Date Type Department Care Team Description 04/21/2004 Results Only [facility] [place] NP conversion [address] [place] [address] [place] [address] [phone] Social History Tobacco Use Types Packs/Day Years Used Date Smoking Tobacco: Never Assessed Sex Assigned at Date Recorded Not on file documented as of this encounter Plan of Treatment Not on filedocumented as of this encounter Procedures Procedure Name Priority Date/Time Associated Diagnosis Comme nts CYTOPATHOLOGY Routine 04/21/2004 0:00 EST Results for this procedure are i n the results section . documented in this encounter Results CYTOPATHOLOGY (04/21/2004 0:00 EST) Component Value Ref Test Analysis Performed At [facility] Method Time [facility] Pathology CYTOPATHOLOGY REPORT [facility] Report: [facility] Reports generated via electronic interface contain original data; however they are lacking the format of the original report. Caution should be taken when reading/interpreting unformatte d reports. Name: ? LILLIAM MUNGUIA ? Accession #: ? [id number] : ? 1970 (Age: 34) ??F ?Collect Date: ? 04/21/2004 Location: ? [facility] ? Receive Date: ? 04/25/2004 Provider: ?JOSHUA PIERRE NP Copy to: ? Specimen/Source: ?ThinPrep Pap Test, Cervix/Endoce rvix Last Menstrual Period: ? 04/05/04 Other: ? HPVA - HPV testing requested if ASC-US on the current ThinPr ep Pap test. ? SPECIMEN ADEQUACY ? Satisfactory for Evaluation - transformation zone component present GENERAL CATEGORIZATION ? Negative for Intraepithelial Lesion or Malignancy ? Document reviewed and electronically signed by: ? CHANTELLE Gonzalez(ASCP) ? Report Date: ??04/28/2004 11:14 End of Report Specimen (Source) Anatomical Location Collection Method / Collectio n Time Received Time / Laterality Volume 04/21/2004 04/25/2004 Joshua Pierre NP PATHOLOGY ORDERABLES Performing Organization Address City/State/ZIP Code Phon e Number [facility] [address] [place] [address] [facility] [address] [place] [address] documented in this encounter Visit Diagnoses Not on filedocumented in this encounter
--- OUTSIDE RECORDS SUMMARY | 2022-01-13 19:38 | XMS_ITS | Encounter Summary ---
:1970 Author Organization [facility] [place] [address] Care Team Providers Name Role Phone Adelia Esquivel APRN Primary Care Provider [phone] Reason for Visit Reason Comments Follow-up s/p [place] surg 07/11/17 Encounter Details Date Type Department Care Team Description 05/19/2018 Office Visit General Surgery at Clementina Casanova APRN [facility] [address] [facility] [place] [address] Status post bariatric surgery; [facility] [address] [facility] [place] [address] Intertrigo; [facility] Symptomat ic abdominal panniculus; Drive Intestinal malabsorption, un specified type; [place], [place] Intertriginous candidiasis; [phone] Post-nasal drip [phone] Social History Tobacco Use Types Packs/Day Years Used Date Smoking Tobacco: Never Smokeless Tobacco: Never Alcohol Use Standard Drinks/Week Comments No 0 (1 standard drink = 0.6 oz pure alcoho l) Sex Assigned at Date Recorded Not on file documented as of this encounter Last Filed Vital Signs Vital Sign Reading Time Taken Comments Blood Pressure 146/92 05/19/2018 1:29 PM EDT Pulse 90 05/19/2018 9:44 AM EDT Temperature - - Respiratory Rate - - Oxygen Saturation 100% 05/19/2018 9:44 AM EDT Inhaled Oxygen Concentration - - Weight 65 kg (143 lb 4.8 oz) 05/19/2018 9:44 AM EDT Height 170.2 cm (5' 7) 05/19/2018 9:44 AM EDT Body Mass Index 22.44 05/19/2018 9:44 AM EDT documented in this encounter Patient Instructions Patient InstructionsFelishaClementina robles Jessika, ASSISTANT ATHLETIC TRAINER - 05/19/2018 10:00 AM EDT [facility] it support consultant Connie [phone] and [facility] [phone] Dietitians: [phone] Surgeons/ nurse practitioners: [phone] Nurse line: [phone] Testing: Labwork: Today. Go to [facility], which is 1 flight below the General Surgery Clinic. I will notify you via [facility] regarding your results and recommendations A copy of your labwork and office visit today is sent to your primary acute care physical therapist Check your blood pressure twice a day for 10 days and let me or your PCP know, it is likely you willneed a reduction in your losartan. Work on increasing fluids, especially on days when you are working out. Next visit: 6 months, at that time will refer to plastics Routine visits are done at 4.8,12, 18 and 24 months after surgery, and yearly thereafter. Please call [phone] if you do not receive an appointment by 3-4 weeks prior to the expected visit. Medications: 1. Antifungal with a steroid cream for you abdominal skin fold rash 2. Tessalon perles take up to 3 times a day for scratchy throat, start with one a day and see how you do, can adjust as needed, when you start it stop omeprazole and see if that makes any difference, be sure to note and GERD, heartburn symptoms. You can take both medications if needed. 2.Further recommendations pending labwork. Referrals: None yet, at 16 months we will send you to plastics for evaluation skin removal if your weight is stable Vitamins: The following vitamins are recommended: ??? [...] periods, iron deficiency or anemia. Nutrition recommendations: push fluids, make sure you are getting enough calories especially as yourtraining mileage increases. One of the rules of thumb, after 90 minutes of exercise, you should add about 200 calories per hour above that. Make sure you don't go below 1400, add high protein snacks - Your Daily Goals: ?? 1,000-1,200 calories [...] Saturday of every month from 1-2 PM at [facility]- no registration required Nutrition and Activity apps- Baritastic, My Fitness Pal, Lose It Internet resources: www.CVRx www.Phantom www.bariatriceating.Innovate/Protect www.Navagis.Innovate/Protect/blog [facility] facebook page: [email or web address]://www.facebook.[email or web address] T[facility]SABariatricSurgery Books & Magazines: - Recipes for Life After Weight Loss Surgery by Zulma Boothe - Shrink Yourself by Dr Luis Angeles - Eating Well - www.DirectAdoptions.com - Cooking Light- www.Optiway Ltd. documented in this encounter Progress Notes Clementina Casanova APRN - 05/19/2018 10:00 AM EDT Reason for Visit: 8 month post op check, S/P laparoscopic Jaymie-en-Y gastric bypass with intraoperative endoscopy on 07/11/2017 (missed previous appointment due to family emergency)? Complications summary: Early none Late - ?? Visits summary: Compliance with [facility] follow up: good Attendance at [facility] post-operative graduate support group meetings:none Pre-op 04/04/2017 [...] plans to go back to that Labs today 05/19/2018 143 22.4 119 Taking fusion 4 times a day Complete labs today ? Date Evaluation Results 10/12 Primary care Post op check, swollen lymph node, treated and resolved 07/11/17 EGD Intra op N/a Colonoscopy ?? Patient Active Problem List Diagnosis Code ??? Obesity, Class II, BMI 35-39.9, with comorbidity [id number] ??? Depression F32.9 ??? Anxiety F41.9 ??? Essential hypertension I10 ??? Gastroesophageal reflux K21.9 ??? Anemia, iron deficiency D50.9 ??? Vitamin D deficiency E55.9 ??? S/P gastric bypass Z98.84 Medications 05/19/18 1146 Medication Sig Taking? clotrimazole-betamethasone (LOTRISONE) 1-0.05 % Cream Apply 1 each topically daily. Apply thin layerat night benzonatate (TESSALON) 100 mg Capsule Take 1 capsule by mouth 3 times daily as needed for Cough. multivitamin Vgkm-Dt-VP-Min (THERAPEUTIC-M) 27-0.4 mg Tablet Take 1 tablet by mouth 4 times daily. Bariatric fusion-take one tablet 4 times a day nystatin (MYCOSTATIN) Powder Apply topically 4 times daily. To affected area buPROPion (WELLBUTRIN) 100 mg Tablet Take 100 mg by mouth 3 times daily. levonorgestrel (MIRENA) 20 mcg/24 hr (5 years) IUD 1 each by Intrauterine route once. losartan (COZAAR) 50 mg Tablet Take 50 mg by mouth 2 times daily. multivitamin (THERAGRAN) Tablet Take 2 tablets by mouth daily. No Known Allergies Visits to emergency department or other unplanned visit to a health care facility since last visit? None Changes to health/ evaluations/ social history since last visit: as per updated problem list and e-DH Subjective. Patient concerns at today's visit: Lilliam returns for routine follow up. She overall is feeling great! She has been having problems with itching and rashes under her abdominal folds. She has also been having some dizziness/lighheadedness especially when rising. She is still taking losartan twice a day.She has been getting at least 48 oz of water most days and 32 oz of iced tea that she nguyen down. Benefits since surgery: is very happy with weight loss, improved energy Future goals: is starting to train for a half marathon Bowel regimen: has a normal daily bm, does not take anything NSAID use: rare Dietary history/ exercise/ activity level: See dietitian note. Review of Systems (negative if left blank): Constitutional: [] fatigue [] pica []restless leg Neurologic: []paresthesias [] memory loss CV: [x] treatment for hypertension or taking antihypertensive medication [] treatment for hyperlipidemia Pulmonary: [] sleep apnea symptoms [] treatment for MERARY- off C pap GI: []GERD-still taking omeprazole, has a bit of scratchy throat which she feels is due more to PND than anything else, she has taken zyrtec, sudafed with no relief, she thought the omeprazole helpedat first but does not feel is really helping, does not think she needs it anymore []dysphagia [] dumping [] abdominal pain [] hernia [] nausea/vomiting [] blood in stool [] chronic diarrhea/ constipation [employer] 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 Heme/Lymph: []excessive bruising [] blood donor in past year Psychiatric [] mental health concerns-denies any, feels great, is between jobs and loving it Other: Employment/social: Has changed jobs, right now is between jobs. Taking some time off and very happy about that. Health-related habits: Tobacco: none Alcohol: None Objective: General: Lilliam is a pleasant, engaged, appropriate, healthy appearing 48 y.o. year-old female appears stated age, NAD Heart: S1S2 distinct, no extra sounds or murmurs, RRR Lungs: Clear all lobes A&P, effort minimal, pattern regular Abdomen: soft, non-tender, no masses, no rebound, +BS. Abdominal trocar sites pale lines, no induration, no erythema Grade >1-2 abominal pannus 2-4 tiered abdominal effect Hooding over the umbilical remnant Active subpannus intertrigo Extremities: No LE edema, pulses present Vital signs: BP (!) 146/92 (BP Location (NBP): Right arm, Patient Position: Standing, BP Cuff Sizes:Adult (25-34 cm)) Pulse 90 Ht 170.2 cm (5' 7) Wt 65 kg (143 lb 4.8 oz) SpO2 100% BMI 22.44 kg/m?? Orthostatic vital signs checked, instructed to monitor at home, likely can reduce losartan Today's labs: Recent Results (from the past 72 hour(s)) Folate, serum Result Value Ref Range Folate Lvl >20.0 4.8 - 24.2 ng/mL Vitamin B12 Result Value Ref Range Vitamin B-12 1,003 232 - 1,245 pg/mL Vitamin D, 25-Hydroxy Result Value Ref Range 25-OH Vit D Total 56 30 - 100 ng/mL Ferritin Result Value Ref Range Ferritin 55 15 - 150 ng/mL Iron and TIBC Result Value Ref Range Iron 120 30 - 150 mcg/dL TIBC 239 (L) 250 - 450 mcg/dL Iron Saturation 50 20 - 50 % Prealbumin Result Value Ref Range Prealbumin 20 20 - 40 mg/dL Comprehensive metabolic panel (non-fasting) Result Value Ref Range Glucose Lvl 95 65 - 199 mg/dL BUN 12 8 - 18 mg/dL Creatinine 0.78 0.70 - 1.20 mg/dL Sodium 141 135 - 145 mmol/L Potassium 4.2 3.5 - 5.0 mmol/L Chloride 102 98 - 107 mmol/L CO2 27 22 - 31 mmol/L Anion Gap 12 5 - 15 mmol/L Calcium 9.3 8.5 - 10.5 mg/dL Total Protein 7.7 6.1 - 8.0 gm/dL Albumin 4.6 3.2 - 5.2 gm/dL AST 17 0 - 30 unit/L ALT 16 0 - 30 unit/L Alk Phos 57 40 - 104 unit/L Total Bilirubin 0.5 0.2 - 1.3 mg/dL eGFR 89 >=60 mL/min/1.73 m?? eGFR 103 >=60 mL/min/1.73 m?? Hemogram Result Value Ref Range WBC 4.8 4.0 - 9.5 x10(3)/mcL RBC 4.57 4.00 - 5.21 x10(6)/mcL Hemoglobin 14.7 11.7 - 15.5 gm/dL Hematocrit 44.7 35.7 - 45.8 % MCV 97.8 (H) 82.6 - 94.4 fL MCH 32.2 (H) 27.1 - 32.0 pg MCHC 32.9 31.7 - 35.0 gm/dL Platelets 204 145 - 357 x10(3)/mcL RDWSD 45.0 37.0 - 46.0 fL RDWCV 12.5 11.5 - 14.1 % MPV 10.2 7.6 - 12.9 fL nRBC % Auto 0.0 % nRBC Abs Auto 0.000 0.000 - 0.000 x10(3)/mcL recommend 2 fusion with iron daily and 2 fusion without iron daily as level is a just a little high. Assessment: S/P RNY, with loss of 119% of excess body weight. Encounter Diagnoses Name ??? Intertrigo Will treat with clotrimazole with corticosteroid to manage itching, instructed to continue with meticulous hygiene/skin care. ??? Symptomatic abdominal panniculus As above, will refer to plastics at her next appt. She is at her goal weight, struggling with rash under abdominal folds ??? Status post bariatric surgery Doing great with weight loss, encouraged to maintain nutrition, avoid more weight loss, push fluids, be sure to maintain no less than 1200 calories a day, more if training. ??? Intestinal malabsorption, unspecified type Labs today to determine nutritional status, levels overall stable, iron a little high, recommend decreasing iron (2 fusion daily with and 2 fusion daily without iron) ??? Intertriginous candidiasis Treat as above, continue meticulous skin care, refer to plastics in 6months, weight is at goal ??? Post-nasal drip Will try tessalon perles to manage chronic cough/tickle/need to clear throat, can try stopping omeprazole and see if that helps. EGD was last normal, if sx continue will consider repeat. Lightheadedness with rising Pt to check ambulatory blood pressure when at home twice a day for the next 10 days, let me or pcp know so we can adjust meds as needed Plan: ?? Lilliam was congratulated on her ongoing healthy lifestyle efforts ?? Advised to discuss a baseline bone density scan with her primary acute care physical therapist ?? Primary care office contacted to obtain recent labwork for continuity of care and avoid unnecessary duplication of testing ?? Next BSP visit: 6 months, sooner if indicated ?? Next labwork: 6 months, sooner if indicated ?? Additional vitamin and mineral supplement recommendations (*in addition to usual post surgery supplements, as noted below): decrease fusion with iron, take 2 with iron and 2 without iron daily. ?? dietary/ exercise recommendations per RD ?? [...] Lilliam was advised of lab results via [facility] per patient request. RECOMMENDED BARIATRIC SURGERY PROGRAM [...] If labwork is done by the primary acute care physical therapist: please send a copy to the Bariatric Surgery Program, General Surgery Clinic, [facility], Questions regarding [facility] Bariatric Surgery Program patients: please call the Bariatric Surgery Program at [phone] documented in this encounter Plan of Treatment Not on filedocumented as of this encounter Procedures Procedure Name Priority Date/Time Associated Comments Diagnosis VITAMIN B1, WHOLE Routine 05/19/2018 11:30 Result s for this BLOOD AM EDT procedure are i n the results section. HEMOGRAM Routine 05/19/2018 11:29 Symptomatic Results for this AM EDT abdominal procedure are i n panniculus the results Status post section. bariatric surger y Intestinal malabsorption, unspecified type IRON AND TIBC Routine 05/19/2018 11:29 Symptomatic Results fo r this AM EDT abdominal procedure are i n panniculus the results Status post section. bariatric surger y Intestinal malabsorption, unspecified type VITAMIN A Routine 05/19/2018 11:29 Symptomatic Results for this AM EDT abdominal procedure are i n panniculus the results Status post section. bariatric surger y Intestinal malabsorption, unspecified type VITAMIN D, 25-HYDROXY Routine 05/19/2018 11:29 Symptomatic Re sults for this AM EDT abdominal procedure are i n panniculus the results Status post section. bariatric surger y Intestinal malabsorption, unspecified type PREALBUMIN Routine 05/19/2018 11:29 Symptomatic Results for this AM EDT abdominal procedure are i n panniculus the results Status post section. bariatric surger y Intestinal malabsorption, unspecified type FOLATE, SERUM Routine 05/19/2018 11:29 Symptomatic Results fo r this AM EDT abdominal procedure are i n panniculus the results Status post section. bariatric surger y Intestinal malabsorption, unspecified type FERRITIN Routine 05/19/2018 11:29 Symptomatic Results for this AM EDT abdominal procedure are i n panniculus the results Status post section. bariatric surger y Intestinal malabsorption, unspecified type VITAMIN B12 Routine 05/19/2018 11:29 Symptomatic Results for this AM EDT abdominal procedure are i n panniculus the results Status post section. bariatric surger y Intestinal malabsorption, unspecified type COMPREHENSIVE Routine 05/19/2018 11:29 Symptomatic Results fo r this METABOLIC PANEL AM EDT abdominal procedure ar e in (NON-FASTING) panniculus the results Status post section. bariatric surger y Intestinal malabsorption, unspecified type documented in this encounter Results (ABNORMAL) Vitamin B1, whole blood (05/19/2018 11:30 AM EDT) athologist Signature Vit B1 Lvl WB 216 (H) 70 - 180 [facility] nmol/L [facility] Comment: ADDITIONAL INFORMATIO N This test was developed and its performa nce characteristics determined by [facility] in a manner co nsistent with CLIA requirements. This test has not been lito ared or approved by the U.S. Food and Drug Administration. Test Performed by: [facility] [address] [place], [place] [address] Specimen Anatomical Collection Method Collection Time Receive d Time (Source) Location / / Volume Laterality Blood specimen Venous Draw / 05/19/2018 11:30 05/20/19 19 1:44 (specimen) Unknown AM EDT PM EDT Resulting Agency Comment Spec In Lab Clementina Casanova APRN CHEMISTRY ORDERABLES Performing Organization Address City/[facility]/ZIP Code Phon e Number [address] Folate, serum (05/19/2018 11:29 AM EDT) athologist Signature Folate Lvl >20.0 4.8 - 24.2 [facility] TRISH ng/mL [facility] Specimen Anatomical Collection Method Collection Time Receive d Time (Source) Location / / Volume Laterality Blood specimen 05/19/2018 11:29 9 (specimen) AM EDT 11:43 AM EDT Resulting Agency Comment Spec In Lab Clementina Casanova ASSISTANT ATHLETIC TRAINER CHEMISTRY ORDERABLES Performing Organization Address City/[facility]/ZIP Code Phon e Number [address] Vitamin B12 (05/19/2018 11:29 AM EDT) athologist [facility] Vitamin B-12 1,003 232 - 1,245 [facility] pg/mL [facility] Specimen Anatomical Collection Method Collection Time Receive d Time (Source) Location / / Volume Laterality Blood specimen 05/19/2018 11:29 9 (specimen) AM EDT 11:43 AM EDT Resulting Agency Comment Spec In Lab Clementina Casanova ASSISTANT ATHLETIC TRAINER CHEMISTRY ORDERABLES Performing Organization Address City/[facility]/ZIP Code Phon e Number [address] Vitamin D, 25-Hydroxy (05/19/2018 11:29 AM EDT) athologist Signature 25-OH Vit D 56 30 - 100 [place] Total ng/mL [facility] Comment: Deficient <10 ng/mL Insufficient 10 to 29 ng/mL Sufficient 30 to 100 ng/mL Potential Intoxication >100 ng/mL According to the [place] National Osteoporosi s Foundation, Vitamin D concentrations >30 ng/mL are sufficient to protect bone health. ??The National Kidney Foundation has similarly stated that pat ients with Vitamin D concentrations <30ng/mL should be considered to be insu fficient or deficient. http://Bellstrike.Innovate/Protect/nkf-guidelines http://Bellstrike.Innovate/Protect/nejm-VitD The IDS iSYS Vitamin D Immunoassay detec ts both 25-OH Vitamin D2 and 25-OH Vitamin D3, but only a total Vitamin D c oncentration is reported. Specimen Anatomical Collection Method Collection Time Receive d Time (Source) Location / / Volume Laterality Blood specimen 05/19/2018 11:29 9 1:39 (specimen) AM EDT PM EDT Resulting Agency Comment Spec In Lab Clementina Casanova APRN CHEMISTRY ORDERABLES Performing Organization Address City/[facility]/ZIP Code Phon e Number [place] [phone] (ABNORMAL) Vitamin A (05/19/2018 11:29 AM EDT) athologist Signature Vitamin A 32.4 (L) 32.5 - 78.0 [facility] mcg/dL [facility] Comment: ADDITIONAL INFORMATIO N This test was developed and its performa nce characteristics determined by [facility] in a manner co nsistent with CLIA requirements. This test has not been lito ared or approved by the U.S. Food and Drug Administration. Test Performed by: [facility] [address] [place], [place] [address] Specimen Anatomical Collection Method Collection Time Receive d Time (Source) Location / / Volume Laterality Blood specimen 05/19/2018 11:29 9 (specimen) AM EDT 12:57 PM EDT Resulting Agency Comment Spec In Lab Clementina Casanova APRN CHEMISTRY ORDERABLES Performing Organization Address City/[facility] Phon e Number [place] [phone] [facility] [address] Ferritin (05/19/2018 11:29 AM EDT) P athologist Signature Ferritin 55 15 - 150 [place] ng/mL [facility] Comment: Pediatric reference ranges not verified at [facility], interpret with caution. Reference ranges for females greater jose n 50 years of age approach values for men, i.e., 30-400 ng/mL. Specimen Anatomical Collection Method Collection Time Receive d Time (Source) Location / / Volume Laterality Blood specimen 05/19/2018 11:29 9 (specimen) AM EDT 11:43 AM EDT Resulting Agency Comment Spec In Lab Clementina Casanova ASSISTANT ATHLETIC TRAINER CHEMISTRY ORDERABLES Performing Organization Address City/[facility]/[place]IP [place] [address] (ABNORMAL) Iron and TIBC (05/19/2018 11:29 AM EDT) Analysis Performed At Patho logist Time Signature Iron 120 30 - 150 [facility] mcg/dL [facility] TIBC 239 (L) 250 - 450 [facility] mcg/dL [facility] Iron Saturation 50 20 - 50 % [facility] Specimen Anatomical Collection Method Collection Time Receive d Time (Source) Location / / Volume Laterality Blood specimen 05/19/2018 11:29 9 (specimen) AM EDT 11:43 AM EDT Resulting Agency Comment Spec In Lab Clementina Richeye ASSISTANT ATHLETIC TRAINER CHEMISTRY ORDERABLES Performing Organization Address City/[facility]/ZIP [place] [address] Prealbumin (05/19/2018 11:29 AM EDT) P athologist Signature Prealbumin 20 20 - 40 [place] mg/dL [facility] Comment: Prealbumin levels are generally lower in the pediatric population; adult concentrations are usually attained near puberty. Specimen Anatomical Collection Method Collection Time Receive d Time (Source) Location / / Volume Laterality Blood specimen 05/19/2018 11:29 9 (specimen) AM EDT 11:43 AM EDT Resulting Agency Comment Spec In Lab Clementina L Edilberto ASSISTANT ATHLETIC TRAINER CHEMISTRY ORDERABLES Performing Organization Address City/[facility]/ZIP [place] [address] Comprehensive metabolic panel (non-fasting) (05/19/2018 11:29 AM EDT) P athologist Signature Glucose Lvl 95 65 - 199 [facility] mg/dL [facility] Comment: Diabetes: >=200 mg/dL plus symp toms BUN 12 8 - 18 mg/dL [facility] Creatinine 0.78 0.70 - 1.20 mg/dL [facility] Sodium 141 135 - 145 mmol/L [facility] Potassium 4.2 3.5 - 5.0 mmol/L [facility] Comment: Please note: ??Patients with WBC >100,00 0 may have falsely elevated Potassium levels. ??For accurate Potassium quantif ication in these patients send serum separator tube (gold top) for subsequent determinations. ??Contact the Clinical Chemistry Laboratory if there are any qu estions. Chloride 102 98 - 107 mmol/L [facility] CO2 27 22 - 31 mmol/L [facility] Anion Gap 12 5 - 15 mmol/L [facility] Calcium 9.3 8.5 - 10.5 mg/dL [facility] Total Protein 7.7 6.1 - 8.0 gm/dL [facility] Albumin 4.6 3.2 - 5.2 gm/dL [facility] AST 17 0 - 30 unit/L [facility] ALT 16 0 - 30 unit/L [facility] Alk Phos 57 40 - 104 unit/L [facility] Total Bilirubin 0.5 0.2 - 1.3 mg/dL [facility] Estimated GFR 89 >=60 mL/min/1.73 m?? [facility] Comment: The eGFR was calculated using the CKD-EP I equation. As with all creatinine based estimates of kidney function, eGFR values calculated with the CKD-EPI equation are not accurate in patients wi th acute kidney failure, extremes of body mass or the acutely ill. http://tinyurl.com/DHnkf eGFR 103 >=60 mL/min/1.73 m?? [facility] Comment: The eGFR was calculated using the CKD-EP I equation. As with all creatinine based estimates of kidney function, eGFR values calculated with the CKD-EPI equation are not accurate in patients wi th acute kidney failure, extremes of body mass or the acutely ill. [email or web address]/[facility]SAnkf Specimen Anatomical Collection Method Collection Time Receive d Time (Source) Location / / Volume Laterality Blood specimen 05/19/2018 11:29 9 (specimen) AM EDT 11:43 AM EDT Resulting Agency Comment Spec In Lab Clementina Casanova APRN CHEMISTRY ORDERABLES Performing Organization Address City/State/[place] [address] (ABNORMAL) Hemogram (05/19/2018 11:29 AM EDT) Analysis Performed At Patho logist Time Signature WBC 4.8 4.0 - 9.5 [facility] LABORATORY RBC 4.57 4.00 - [facility] TRISH 5.21 [facility] x10(6)/[facility] LABORATORY Hemoglobin 14.7 11.7 - [facility] 15.5 gm/dL [facility] Hematocrit 44.7 35.7 - [facility] 45.8 % [facility] MCV 97.8 (H) 82.6 - [facility] TRISH 94.4 [facility] LABORATORY MCH 32.2 (H) 27.1 - [facility] [place] 32.0 pg [facility] MCHC 32.9 31.7 - [facility] TR[place] 35.0 gm/dL [facility] Platelets 204 145 - 357 [facility] LABORATORY RDWSD 45.0 37.0 - [facility] TRISH 46.0 [facility] LABORATORY RDWCV 12.5 11.5 - [facility] TR[place] 14.1 % [facility] LABORATORY MPV 10.2 7.6 - 12.9 [facility] nRBC % Auto 0.0 % [facility] LABORATORY nRBC Abs Auto 0.000 0.000 - [facility] 0.000 [facility] x10(3)/[facility] LABORATORY Specimen Anatomical Collection Method Collection Time Receive d Time (Source) Location / / Volume Laterality Blood specimen 05/19/2018 11:29 9 (specimen) AM EDT 11:43 AM EDT Resulting Agency Comment Spec In Lab Clementina Casanova APRN HEMATOLOGY ORDERABLES Performing Organization Address City/State/[place] [address] documented in this encounter Visit Diagnoses Diagnosis Status post bariatric surgery Bariatric surgery status Intertrigo Other specified erythematous condition Symptomatic abdominal panniculus Localized adiposity Intestinal malabsorption, unspecified ty pe Intertriginous candidiasis Candidiasis of skin and nails Post-nasal drip Postnasal drip documented in this encounter Care Teams It Applications Analyst Relationship Specialty Start Date End Date Adelia Esquivel APRN PCP - General Family Medicine 09/30/17 [address] [place] [address] documented as of this encounter
--- OUTSIDE RECORDS SUMMARY | 2022-01-13 19:38 | XMS_ITS | Encounter Summary ---
:1970 Author Organization [facility] [place] [address] Care Team Providers Name Role Phone Adelia Esquivel APRN Primary Care Provider [phone] Encounter Details Date Type Department Care Team Description 08/11/2021 Telephone General Surgery at [facility] [place] [address] Social History Tobacco Use Types Packs/Day Years Used Date Smoking Tobacco: Never Smokeless Tobacco: Never Alcohol Use Standard Drinks/Week Comments No 0 (1 standard drink = 0.6 oz pure alcoho l) Sex Assigned at Date Recorded Not on file documented as of this encounter Miscellaneous Notes Telephone Encounter - Connie Smith - 08/11/2021 9:32 AM EDT Left message to see if patient is interested in scheduling a annual follow-up visit. I asked them togive us a call back to set up an appointment and let them know that I will be sending them a letter via [facility] or mail. documented in this encounter Plan of Treatment Not on filedocumented as of this encounter Visit Diagnoses Not on filedocumented in this encounter Care Teams Assistance Representative Relationship Specialty Start Date End Date Adelia Esquivel APRN PCP - General Family Medicine 09/30/17 [address] [place] [address] documented as of this encounter
--- OUTSIDE RECORDS SUMMARY | 2022-01-13 19:38 | XMS_ITS | Encounter Summary ---
:1970 Author Organization [facility] [place] [address] Care Team Providers Name Role Phone Adelia Esquivel APRN Primary Care Provider [phone] Reason for Visit Reason Comments Skin Lesion Consultation (Routine) - Closed Specialty Diagnoses / Procedures Referred By Contact Refer red To Contact Dermatology Diagnoses scalp lesion Karly Riojas APRN [facility] Dermatology [address] [place] [address] [place] [address] Fax: Referral ID Status Reason Start Date Expiration Date Visits V isits Requested Authorized [id number] Closed Consult, 09/30/2017 09/30/2018 1 1 [facility] Encounter Details Date Type Department Care Team Description 11/26/2017 Office Visit Dermatology at [facility] Actinic cheilitis; Dashawn De La Torre MD Pilar cyst; [address] [place] [address] [facility] [place], [place] [address] Social History Tobacco Use Types Packs/Day Years Used Date Smoking Tobacco: Never Smokeless Tobacco: Never Alcohol Use Standard Drinks/Week Comments No 0 (1 standard drink = 0.6 oz pure alcoho l) Sex Assigned at Date Recorded Not on file documented as of this encounter Progress Notes Ruby Warren MD - 11/26/2017 8:00 AM EDT DERMATOLOGY OUTPATIENT CLINIC NOTE Date of service: 11/26/2017 Lilliam Munguia : 1970 Provider: Ruby Warren MD PROBLEM: skin lesion on scalp SKIN HISTORY: None H/o cold sores HPI Lilliam Munguia is a 47 y.o. female. She is a new pt to me and the clinic. She is referred for a skin lesion on the scalp. She developed a lump on the left neck and thought the spot on the head is related to the area on the neck, but she states the spot has resolved. They do come and go. She did mention she has a new area on the lip. She has a couple white patches on the lips. She does get cold sores. She mentions a little white bump on her left upper eyelid that has been present for about a month. Social History: Works for [employer] Family History: None ADR: No Known Allergies CURRENT MEDICATIONS: Current Outpatient Prescriptions Medication Sig Dispense Refill ??? nystatin (MYCOSTATIN) Powder Apply topically 4 times daily. To affected area 30 g 3 ??? buPROPion (WELLBUTRIN) 100 mg Tablet Take 100 mg by mouth 3 times daily. ??? ursodiol (ACTIGALL) 300 mg Capsule Take 1 capsule by mouth 2 times daily for 180 days. Start at 2 weeks post op on 07/25. Take until 01/21 to prevent gallstones. 180 tablet 1 ??? levonorgestrel (MIRENA) 20 mcg/24 hr (5 years) IUD 1 each by Intrauterine route once. ??? losartan (COZAAR) 50 mg Tablet Take 50 mg by mouth 2 times daily. 0 ??? multivitamin (THERAGRAN) Tablet Take 2 tablets by mouth daily. ??? omeprazole (PRILOSEC) 20 mg Capsule, Delayed Release(E.C.) Take 1 capsule by mouth daily. 30 capsule 5 No current facility-administered medications for this visit. PROBLEM LIST: Patient Active Problem List Diagnosis Code ??? Obesity, Class II, BMI 35-39.9, with comorbidity [id number] ??? Depression F32.9 ??? Anxiety F41.9 ??? Essential hypertension I10 ??? Gastroesophageal reflux K21.9 ??? Anemia, iron deficiency D50.9 ??? Vitamin D deficiency E55.9 ??? S/P gastric bypass Z98.84 ROS General: feeling well. Oriented X 3. Skin: denies other skin complaints EXAM General: NAD, pleasant, cooperative Skin: Focused skin examination of the face, neck, and scalp was normal with the exception of the findings listed below. Significant skin findings: -Left posterior scalp: 3mm flesh colored nodule. -Keratin buildup on lower vermilion lip. -Left lateral upper lid margin: 3mm white papule. ASSESSMENT/PLAN Pilar Cyst - Benign. Patient reassured. - Discussed surgical excision is an option if this becomes bothersome or painful. - Patient will call if she would like to schedule excision. Early Actinic Cheilitis vs Keratin Buildup - No treatment recommended at this time. - Recommended SPF chapstick. Milia - Benign. No treatment necessary. - Reassured about benign nature and natural history. RTC - November 2019 for 2 year lip re-check, or sooner as needed. Note initiated and routed to physician for review and change by: JAMA RICHEY LPN I, Abby Hess, have performed the documentation for this encounter in the presence of and acting as a scribe for Ruby Warren MD. I, Dr. Ruby Warren, performed the visit service though my nurse assisted me in scribing the note. I reviewed and edited this note above, a scribed service performed by my nurse. On closure of this note I agree with the accuracy of the documentation. Ruby Warren MD Section of Dermatology [facility] documented in this encounter Plan of Treatment Not on filedocumented as of this encounter Visit Diagnoses Diagnosis Actinic cheilitis Acute dermatitis due to solar radiation Pilar cyst Milia Sebaceous cyst documented in this encounter Care Teams Die Equipment Operator Relationship Specialty Start Date End Date Adelia Esquivel APRN PCP - General Family Medicine 09/30/17 [address] [place] [address] documented as of this encounter
--- OUTSIDE RECORDS SUMMARY | 2022-01-13 19:38 | XMS_ITS | Encounter Summary ---
:1970 Author Organization [facility] Address [address] [place] [address] Care Team Providers Name Role Phone Unavailable Primary Care Provider Unavailable Encounter Details Date Type Department Care Team Description 02/04/2001 Results Only [facility] - Ralph Hercules FNP conversion [address] [place], [place] [id number] [place] [id number] (Wo rk) Social History Tobacco Use Types Packs/Day Years Used Date Smoking Tobacco: Never Assessed Sex Assigned at Date Recorded Not on file documented as of this encounter Plan of Treatment Not on filedocumented as of this encounter Procedures Procedure Name Priority Date/Time Associated Diagnosis Comme nts CYTOPATHOLOGY Routine 02/04/2001 0:00 EST Results for this procedure are i n the results section . documented in this encounter Results CYTOPATHOLOGY (02/04/2001 0:00 EST) Component Value Ref Test Analysis Performed At [facility] [place] Method Time [facility] Pathology CYTOPATHOLOGY REPORT [facility] Report: [facility] Reports generated via electronic interface contain original data; however they are lacking the format of the original report. Caution should be taken when reading/interpreting unformatte d reports. Name: ? JONATHAN MUNGUIA ? Accession #: ? [id number] : ? 1970 (Age: 31) ??F ?Collect Date: ? 02/04/2001 Location: ? [facility] ? Receive Date: ? 02/06/2001 Provider: ?RALPH PAT HANDLE ASSEMBLER Copy to: ? Specimen/Source: ?ThinPrep Pap Test, Cervix/Endoce rvix Last Menstrual Period: ? 01/13/01 Previous Gynecologic Pathology: ? Yes: Years ago ? SPECIMEN ADEQUACY ? Satisfactory for evaluation. GENERAL CATEGORIZATION ? Within Normal Limits ? Document reviewed and electronically signed by: ? Miryam Lopez [facility](ASCP) ? Report Date: ??02/10/2001 15:07 End of Report Specimen (Source) Anatomical Location Collection Method / Collectio n Time Received Time / Laterality Volume 02/04/2001 02/06/2001 Ralph Pat HANDLE ASSEMBLER PATHOLOGY ORDERABLES Performing Organization Address City/State/ZIP Code Phon e Number [facility] [address] [place] [address] [facility] [address] [place] [address] documented in this encounter Visit Diagnoses Not on filedocumented in this encounter
--- OUTSIDE RECORDS SUMMARY | 2022-01-13 19:38 | XMS_ITS | Encounter Summary ---
:1970 [place] [address] Care Team Providers Name Role Phone Adelia Esquivel APRN Primary Care Provider [phone] Encounter Details Date Type Department Care Team Description 11/19/2018 Notes Only General Surgery at [facility] М[address] Govea [address] [facility] [place] [address] [place], [place] [id number] Social History Tobacco Use Types Packs/Day Years Used Date Smoking Tobacco: Never Smokeless Tobacco: Never Alcohol Use Standard Drinks/Week Comments No 0 (1 standard drink = 0.6 oz pure alcoho l) Sex Assigned at Date Recorded Not on file documented as of this encounter Progress Notes Мария Govea, RD - 11/19/2018 9:28 AM EDT Bariatric Surgery Program Nutrition Follow-up Note 11/19/2018 Provider: Мария Govea, MS, RD, LD Reason for encounter: Lilliam Munguia is a 48 y.o. female who is seen today for an 18 month follow-up visit. Pt is also seeing Clementina Casanova APRN for an evaluation today Date of Surgery: 07/11/2017 Topics Discussed/Patient Concerns: No food or vitamin concerns; biggest problem is chronic back painsince July; also thinks BP meds need adjusting Weight History:?? Date Weight (lbs) HT BMI Comments ~2005 250# ? Highest Weight (per pt) 08/06/16 247.6# ? Initial program weight 04/04/17 248.1# 67 38.8 1st pre-op visit 07/11/17 232# EWL % ?? Surgery 08/07/17 217# 35% 34.0 1 month post-op 11/08/17 186.7# 69% 29.2 4 months post-op 05/19/18 143# 119% 22 10 months post-op 11/19/18 159# 101% 24.9 18 months post-op [place] Body Weight (based on BMI of 25): 159# Excess Weight: 89# 30-70% Excess Weight Loss: 185-221# ; 50% Excess Weight Loss: 203# ? Vitamin/Mineral Supplements??(reported by patient): Supplement Type Brand/Form Dosage/Amount Frequency Comments Multivitamin Bariatric Fusion 2 pills 2 x daily ?? Calcium ? Vitamin??B12 ? Iron ? Vitamin D2 ? Reported Oral Intake: Breakfast Slim Fast Lunch 1/2 sandwich OR salad with protein OR comoran yogurt Dinner Protein, veggies usually no starch Snacks HB egg, yogurt, deli meat Fluid > 64 oz iced tea and water ETOH none ? Exercise: Limited d/t back pain. Normal routine: goes to the gym several times per week - runs on [place] takes boot camp classes; was training for a 1/2 marathon ?? 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 ASSESSMENT: 101%EWL is beyond the expected range; meeting protein and fluid goals; compliant with vitamins; level of exercise/activity has decreased d/t back pain; remains motivated and on track with healthy dietary habits NUTRITION INTERVENTION & MONITORING: ?? Provided support/encouragement and reinforced importance of meeting nutritional goals. ?? Reviewed vitamin and mineral supplement recommendations. ?? Written recommendations provided on the AVS ?? Evaluation by nurse practitioner today. ?? Has the [employer] Booklet for reference ?? Follow-up in 6 months documented in this encounter Plan of Treatment Not on filedocumented as of this encounter Visit Diagnoses Not on filedocumented in this encounter Care Teams Weights And Measures Sealer Relationship Specialty Start Date End Date Adelia Esquivel APRN PCP - General Family Medicine 09/30/17 [address] [place] [address] documented as of this encounter
--- OUTSIDE RECORDS SUMMARY | 2022-01-13 19:38 | XMS_ITS | Encounter Summary ---
:1970 Author Organization [facility] [place] [address] Care Team Providers Name Role Phone Adelia Esquivel APRN Primary Care Provider [phone] Reason for Visit Reason Comments Medication Refill Encounter Details Date Type Department Care Team Description 06/16/2019 Refill General Surgery at [facility] Clementina Casanova, Hypertension, [facility] HAND BINDERY ASSEMBLY WORKER [place] [address] [facility] [place], [place] [address] (Wo rk) Social History Tobacco Use Types Packs/Day Years Used Date Smoking Tobacco: Never Smokeless Tobacco: Never Alcohol Use Standard Drinks/Week Comments No 0 (1 standard drink = 0.6 oz pure alcoho l) Sex Assigned at Date Recorded Not on file documented as of this encounter Plan of Treatment Not on filedocumented as of this encounter Visit Diagnoses Diagnosis Hypertension, unspecified type documented in this encounter Care Teams Quill Picking Machine Operator Relationship Specialty Start Date End Date Adelia Esquivel APRN PCP - General Family Medicine 09/30/17 [address] [place], [place] [address] documented as of this encounter
--- OUTSIDE RECORDS SUMMARY | 2022-01-13 19:38 | XMS_ITS | Encounter Summary ---
:1970 Author Organization [facility] [place] [address] Care Team Providers Name Role Phone Adelia Esquivel APRN Primary Care Provider [phone] Encounter Details Date Type Department Care Team Description 04/03/2018 Office Visit General Surgery at Clementina aCsanova APRN [facility] [address] [facility] [place] [address] DH PATIENT NOT SEEN [facility] М[address] [place] [address] [place] [address] Social History Tobacco Use Types Packs/Day Years Used Date Smoking Tobacco: Never Smokeless Tobacco: Never Alcohol Use Standard Drinks/Week Comments No 0 (1 standard drink = 0.6 oz pure alcoho l) Sex Assigned at Date Recorded Not on file documented as of this encounter Progress Notes Clementina Casanova APRN - 04/03/2018 10:30 AM EST Pt was not seen, no show, called, she had to go to [place] as there was a in the family This patient was not seen in this encounter. Patient will call to reschedule when she returns documented in this encounter Plan of Treatment Not on filedocumented as of this encounter Visit Diagnoses Diagnosis DH PATIENT NOT SEEN documented in this encounter Care Teams Jute Bag Clipper Relationship Specialty Start Date End Date Alvin, Adelia H, AUTO VINYL TOP INSTALLER PCP - General Family Medicine 09/30/17 [address] [place] [address] documented as of this encounter
--- OUTSIDE RECORDS SUMMARY | 2022-01-13 19:38 | XMS_ITS | Encounter Summary ---
:1970 Author Organization [facility] [place] [address] Care Team Providers Name Role Phone Adelia Esquivel APRN Primary Care Provider [phone] Reason for Visit Reason Comments Follow-up s/p RNY 07/11/2017, 4 month p ost op check for nutrition evaluation, chart review, med review, physical exam and counseling and education regarding bariatric surgery Encounter Details Date Type Department Care Team Description 11/08/2017 Office Visit General Surgery at Clementina Casanova APRN [facility] [address] [facility] [place] [address] Disorder of iron metabolism; [facility] Aleksandra Luna RD [facility] [place] [address] Status post bariatric surgery; [facility] Intestina l malabsorption, unspecified type; Drive Gastroesophageal reflux dise ase, esophagitis presence not specified; [place], [place] Fatigue, unspec ified type; [id number] Vitamin D deficiency; [phone] Candidal intert jackelin Social History Tobacco Use Types Packs/Day Years Used Date Smoking Tobacco: Never Smokeless Tobacco: Never Alcohol Use Standard Drinks/Week Comments No 0 (1 standard drink = 0.6 oz pure alcoho l) Sex Assigned at Date Recorded Not on file documented as of this encounter Last Filed Vital Signs Vital Sign Reading Time Taken Comments Blood Pressure 149/94 11/08/2017 9:51 AM EDT Pulse 98 11/08/2017 9:51 AM EDT Temperature 36.4 ??C (97.6 ??F) 11/08/2017 9:51 AM EDT Respiratory Rate 18 11/08/2017 9:51 AM EDT Oxygen Saturation 100% 11/08/2017 9:51 AM EDT Inhaled Oxygen Concentration - - Weight 84.7 kg (186 lb 11.2 oz) 11/08/2017 9:51 AM EDT Height - - Body Mass Index 29.24 08/07/2017 11:49 AM EDT documented in this encounter Patient Instructions Patient InstructionsClementina Casanova Jessika, LEGAL REFEREE - 11/08/2017 10:00 AM EDT [facility] support specialist Connie [phone] and Stacey [phone] Dietitians: [phone] Surgeons/ nurse practitioners: [phone] Nurse line: [phone] Testing: Labwork: Today. Go to [facility], which is 1 flight below the General Surgery Clinic. I will notify you via [facility] how your labs look and any changes needed A copy of your labwork and office visit today is sent to your primary customer care specialist Next visit: 4 months Routine visits are done at 4.8,12, 18 and 24 months after surgery, and yearly thereafter. Please call [phone] if you do not receive an appointment by 3-4 weeks prior to the expected visit. Medications: 1. Go ahead switch back to bariatric fusion 4 x day 2. Further recommendations pending labwork 3. Stay on omeprazole daily 4. Nystatin sent for skin Referrals: None yet Vitamins: The following vitamins are recommended: ??? Multivitamins with minerals. Switch back to fusion 4 x day ??? Calcium citrate 500 mg with Vitamin D 400 units twice daily (1 chewable twice a day)- don't needthis if you take the fusion Nutrition recommendations: - Try chicken thighs to see if they are better tolerated. - Your Daily Goals: ?? 1,000-1,200 calories per day (300 calories per meal, 100 calories per snack, 1-2 snacks per day) ?? 60 grams of protein per day (20 grams per meal) ?? 48-64 oz of non-caloric and hydrating fluids per day (6-8, 8 oz cups) ?? Do not drink with meals- pushes food through more quickly, can cause upset stomach Activity: ??? Keep up the great work with regular activity. Alcohol: should be used sparingly, no more [...] of every month from 1-[address] [facility]- no registration required Nutrition and Activity apps- Baritastic, My Fitness Pal, Lose It, My Plate Internet resources: www.[employer] Management www.Performa Sports www.bariatriceating.com www.KuponGid.Neotract/blog [facility] facebook page: https://www.facebook.com/[email or web address]BariatricSurgery Books & Magazines: - Recipes for Life After Weight Loss Surgery by Zulma Boothe - Shrink Yourself by Dr Luis Angeles - Eating Well - www.[email or web address].Neotract - Cooking Light- www.cookingTech Cocktail.Neotract documented in this encounter Progress Notes Aleksandra Luna, RD - 11/08/2017 10:00 AM EDT Bariatric Surgery Program Nutrition Progress Note Encounter Type: follow up SUBJECTIVE: Topics Discussed/Patient Concerns: ?? Nutrition for exercise at gym. 1 hour boot camp; 20 min warm-up. States she has a snack about 2 hours before she works out. ?? Pt states she switched from Bariatric Fusion to Procare about 1 month ago and she thinks she feels more tired now. She is considering switching back to the Bariatric Fusion. 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 OBJECTIVE: Date of Bariatric Surgery: 07/11/17 Type of Bariatric Surgery: Laparoscopic Med-en-Y Gastric Bypass Weight History: Date Weight (lbs) HT BMI Comments ~2005 250# Highest Weight (per pt) 08/06/16 247.6# Initial program weight 04/04/17 248.1# 67 38.8 1st pre-op visit 07/11/17 232# EWL % Surgery 08/07/17 217# 35% 34.0 1 month post-op 11/08/17 186.7# 69% 29.2 4 months post-op [place] Body Weight (based on BMI of 25): 159# Excess Weight: 89# 30-70% Excess Weight Loss: 185-221# ; 50% Excess Weight Loss: 203# MEDICATIONS: Vitamin/Mineral Supplements (reported by patient): Supplement Type Brand/Form Dosage/Amount Frequency Comments Multivitamin Bariatric Fusion 1 pill daily Calcium Chews- citrate 2 pills twice daily rec decrease to 1 chew twice daily Vitamin B12 Iron Vitamin D2 50,000 IU weekly Food Allergies/Intolerances: Eggs, cottage cheese, chicken. Evening meals after workouts don't settle well. Tracking Intake: My Fitness Pal Daily Oral Intake: Can eat about 1 cup of food at a time Breakfast Slim Fast Advanced AM Snack Lunch Stuffed pepper w/ground round, provolone cheese, cottage cheese and spaghetti sauce PM Snack [place] yogurt- Light and Fit Dinner Rotisserie or baked chicken, green beans, starch(sweet potato or brown rice) HS Snack Protein ball Protein/ grams per day: 60-80 Calories per day: 900 Hydrating fluids- oz/ day: Decaf iced tea 60 oz w/lemon and truvia or CL decaf; 32 oz water Soda: None ETOH: None Caffeine: None Sweets: Makes homemade protein balls and has that daily. Tastes of sweets here and there but nothingregular. Meals per day: 3 ?? Feels full/satisfied after eating: yes ?? Feels hungry [x]never []sometimes []most of the time [] always ?? Drinks with meals: None. ?? Practices portion control: yes, measures food ?? Spends at least 20 minutes eating each meal: 20-30 min ?? Has had dumping syndrome: none Foods/Symptoms: ?? In the past month, pt has vomited/regurgitated: vomited 2 x since surgery. Once last week after having chicken after a workout ?? Constipation/Diarrhea: occ constipation. Improving. Has MiraLAX but hasn't had to take recently. Exercise: 60-80 minutes of activity 5-6 days per week. 3-4 boot camp session per week, 2 days cardio, occ hiking and bike riding. ASSESSMENT: Summary of Weight Loss: Patient's percent excess weight loss is 69% which is within the expected post-op bariatric surgery range. She is tolerating the diet with the exception of chicken on evenings she works out. Suggested trying dark meat chicken to see if that is better tolerated. Advised having a snack before her workoutis appropriate. Fluid intake is adequate. She is taking the recommended supplements, however she is taking too much calcium. Rec decreasing calcium to 1 chew twice per day. It is unclear why pt would feel more tired after switching to Procare. Labs to be done today to see if needs are being met. Encouraged ongoing exercise. NUTRITION INTERVENTION & MONITORING: ?? Provided support/encouragement and reinforced importance of meeting nutritional goals. ?? Reviewed nutrition and vitamin and mineral supplement recommendations (see patient instructions). ?? Written recommendations provided. Patient agreed with these and verbalized adequate understanding. ?? Evaluation by nurse practitioner today. Clementina Casanova APRN - 11/08/2017 10:00 AM EDT Reason for Visit: 4 month post op check, S/P laparoscopic Med-en-Y gastric bypass with intraoperative endoscopy on 07/11/2017 Complications summary: Early none Late - ?? Visits summary: Compliance with [facility] follow up: good Attendance at [facility] post-operative graduate support group meetings:none Pre-op 04/04/2017 Wt (lbs) 248 BMI 38.8 Visit #2 WT: HT: 67 ? Post-op ? %EBW lost Supplement compliance Labwork 08/07/2017 217 34 35 Good, see RD note -at next visit, 4 month post op ??11/08/2017 ??186 ??69 ??29.2 ??good has been taking procare but feels tired, felt better on bariatric fusion 4x a day so plans to go back to that Labs today Date Evaluation Results 10/12 Primary care Post op check, swollen lymph node, treated and resolved 07/11/17 EGD Intra op N/a Colonoscopy Patient Active Problem List Diagnosis Code ??? Obesity, Class II, BMI 35-39.9, with comorbidity E66.9 ??? Depression F32.9 ??? Anxiety F41.9 ??? Essential hypertension I10 ??? Gastroesophageal reflux K21.9 ??? Anemia, iron deficiency D50.9 ??? Menorrhagia N92.0 ??? Vitamin D deficiency E55.9 ??? S/P gastric bypass Z98.84 Medications 11/09/17 1054 Medication Sig Taking? CALCIUM CITRATE ORAL Take 500 mg by mouth 4 times daily. Yes buPROPion (WELLBUTRIN) 100 mg Tablet Take 100 mg by mouth 3 times daily. Yes ursodiol (ACTIGALL) 300 mg Capsule Take 1 capsule by mouth 2 times daily for 180 days. Start at 2 weeks post op on 07/25. Take until 01/21 to prevent gallstones. Yes ergocalciferol (ERGOCALCIFEROL) 50,000 unit Capsule Take 1 capsule by mouth once a week for 24 doses. Yes levonorgestrel (MIRENA) 20 mcg/24 hr (5 years) IUD 1 each by Intrauterine route once. Yes losartan (COZAAR) 50 mg Tablet Take 50 mg by mouth 2 times daily. Yes multivitamin (THERAGRAN) Tablet Take 2 tablets by mouth daily. Yes albuterol 90 mcg/actuation HFA Aerosol Inhaler Inhale 2 puffs into the lungs every 4 hours as neededfor Wheezing. Use with spacer Yes omeprazole (PRILOSEC) 20 mg Capsule, Delayed Release(E.C.) Take 1 capsule by mouth daily. Yes nystatin (MYCOSTATIN) Powder Apply topically 4 times daily. To affected area No Known Allergies Past Surgical History: Procedure Laterality Date ??? BREAST REDUCTION SURGERY ??? PRO LAP GASTRIC BYPASS/MED-EN-Y N/A 07/11/2017 @LAPAROSCOPIC GASTROPLASTY, (WRVU 29.4) performed by Sydney Monique MD at [facility] MAIN OR ??? PRO UPPER GI ENDOSCOPY, DIAGNOSTIC N/A 07/11/2017 ENDOSCOPY, UPPER GI, DIAGNOSTIC, WITH OR WITHOUT SPECIMENS performed by Sydney Monique MD at [facility] MAIN OR Visits to emergency department or other unplanned visit to a health care facility since last visit? None Changes to health/ social history or evaluations since last visit: As per updated problem list and e-DH Subjective. Patient concerns at today's visit: Lilliam returns for her 4 month post surgery follow up. Has developed some itching under her abdominal fold. It bothers her all the time, is itchy, sometimes has a bothersome odor, keeps her up at night at times. She has tried lots of over the counter treatments without relief. She also notices she is annoyed more easily and without food to turn to feels she is a little more irritable than she was before surgery. Work has been stressful and triggers her but she feels this is not really a problem, just more noticeable. She is considering changing jobs. Medications Frequency/ Duration Comments Ursodiol Twice a day Tolerating fine Treatment for constipation bm daily most days miralax prn for occasional constipation NSAIDs None PPI Daily Need to continue as she had return of tickle in her throat when stopped, resolved when she resumed Dietary history/ exercise/ activity level: See dietitian note. Benefits of surgery: is very happy with weight loss, feels better, is much more active, has been feeling tired lately Goals:get weight to 165-170, continue to become healthier, more active, will consider skin removal later Review of Systems (negative if left blank): Constitutional: [x ] fatigue [] pica [x ] hair loss [ ] restless leg Neurologic: [ ] paresthesias CV: [] treatment for hypertension or taking antihypertensive medication [ ] treatment for hyperlipidemia Pulmonary: [] sleep apnea symptoms [ ] treatment for MERARY, sleeps 7-8 hours a night GI: [x] GERD, dysphagia [] dumping [] abdominal pain, hernia [] nausea/vomiting -vomited twice in the evening after eating chicken in the evening, food is harder to settle when eating late [] blood in stool [] chronic diarrhea/ constipation 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 Skin: [x] redundant skin [x] chronic rashes Heme/Lymph: [] excessive bruising [] blood donation in past year Psychiatric [] mental health concerns, has had a horrible work week, has been anxious, notices more now that she cant eat. 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 Has been going to the gym, hiking and biking, camping, busy with grandkids Objective: General: Lilliam is a pleasant, engaged, appropriate 47 y.o. year-old female appears stated age, NAD, she is here with her Heart: S1S2 distinct, no extra sounds or murmurs, RRR Lungs: Clear all lobes A&P, effort minimal, pattern regular Abdomen: soft, non-tender, no masses, no rebound, +BS. Trocar sites, pink, closed, no induration. Under abdomen erythema, excoriation, odor, moisture Extremities: no LE edema, pulses present Vital signs: BP (!) 149/94 Pulse 98 Temp 36.4 ??C (97.6 ??F) Resp 18 Wt 84.7 kg (186 lb 11.2oz) LMP (Exact Date) SpO2 100% BMI 29.24 kg/m2\ Today's lab data: Recent Results (from the past 72 hour(s)) Hemogram Result Value Ref Range WBC 8.8 4.0 - 9.5 x10(3)/mcL RBC 4.61 4.00 - 5.21 x10(6)/mcL Hemoglobin 14.7 11.7 - 15.5 gm/dL Hematocrit 44.2 35.7 - 45.8 % MCV 95.9 (H) 82.6 - 94.4 fL MCH 31.9 27.1 - 32.0 pg MCHC 33.3 31.7 - 35.0 gm/dL Platelets 268 145 - 357 x10(3)/mcL RDWSD 47.8 (H) 37.0 - 46.0 fL RDWCV 13.4 11.5 - 14.1 % MPV 10.1 7.6 - 12.9 fL nRBC % Auto 0.0 % nRBC Abs Auto 0.000 0.000 - 0.000 x10(3)/mcL Comprehensive metabolic panel (non-fasting) Result Value Ref Range Glucose Lvl 90 65 - 199 mg/dL BUN 9 8 - 18 mg/dL Creatinine 0.70 0.70 - 1.20 mg/dL Sodium 141 135 - 145 mmol/L Potassium 4.1 3.5 - 5.0 mmol/L Chloride 103 98 - 107 mmol/L CO2 27 22 - 31 mmol/L Anion Gap 11 5 - 15 mmol/L Calcium 9.2 8.5 - 10.5 mg/dL Total Protein 7.1 6.1 - 8.0 gm/dL Albumin 3.7 3.2 - 5.2 gm/dL AST 14 0 - 30 unit/L ALT 12 0 - 30 unit/L Alk Phos 67 40 - 104 unit/L Total Bilirubin 0.3 0.2 - 1.3 mg/dL eGFR 102 >=60 mL/min/1.73 m?? eGFR 118 >=60 mL/min/1.73 m?? Prealbumin Result Value Ref Range Prealbumin 15 (L) 20 - 40 mg/dL Iron and TIBC Result Value Ref Range Iron 72 30 - 150 mcg/dL TIBC 229 (L) 250 - 450 mcg/dL Iron Saturation 31 20 - 50 % Ferritin Result Value Ref Range Ferritin 48 15 - 150 ng/mL Vitamin B12 Result Value Ref Range Vitamin B-12 1278 (H) 232 - 1245 pg/mL Folate, serum Result Value Ref Range Folate Lvl >20.0 4.8 - 24.2 ng/mL Pt instructed to increase protein. D pending Assessment: S/P RNY with loss of 69% of excess body weight. Encounter Diagnoses Name ??? Disorder of iron metabolism Iron levels ok, Lilliam will resume bariatric fusion as she feels better on that, it has 45 mg of iron per day ??? Status post bariatric surgery Doing well post op, needs to increase protein intake ??? Intestinal malabsorption, unspecified type Pt instructed to continue recommended supplements, increase protein ??? Gastroesophageal reflux disease, esophagitis presence not specified Needs to stay on PPI indefinitely as had return of symptoms when stopped ??? Fatigue, unspecified type Possibly due to lack of protein/calories ??? Vitamin D deficiency D pending ??? Candidal intertrigo Will treat with nystatin powder, recommend meticulous hygiene, may be a goodcandidate for skin removal as she has had very good weight loss Plan: ?? Lilliam was congratulated on ongoing healthy lifestyle efforts ?? advised that Ursodiol can be discontinued at 6 months post-operatively ?? advised that control is recommended for at least 18-24 months post-operatively. ?? Primary care office contacted to obtain recent labwork for continuity of care and avoid unnecessary duplication of testing- PCP note reviewed from post op check ?? Advised that hair loss due to rapid weight loss is typical for this early post-surgery time frame, will improve with time and adequate protein/ calorie intake, pt strongly encouraged to increase protein intake ?? Next BSP follow up: 4 months, sooner if indicated ?? Next labwork: 4 months, sooner if indicated. ?? Additional vitamin and mineral supplement recommendations (*in addition to routine bariatric supplements, as noted below): ?? Advised to call with unexplained abdominal pain, prolonged nausea, vomiting or inability to hydrate, questions or concerns ?? dietary/ exercise recommendations per RD She was provided with a Bariatric Program Summary report which included the above recommendations, as well as information on vitamin and mineral supplementation, fluids, exercise and support group meetings. She has had an opportunity to have all her questions answered and is in agreement with the plan of care. Lilliam was advised of lab results via [facility] per her request. RECOMMENDED BARIATRIC SURGERY PROGRAM POSTOPERATIVE FOLLOW-UP: Follow up: done at 4, 8,12 and 18 and 24 months, and yearly thereafter. High risk patients are evaluated on a more frequent basis. *Supplement recommendations: Complete multivitamin with minerals twice a day, B12 500 [...] If labwork is done by the primary customer care specialist: please send a copy to the Bariatric Surgery Program, General Surgery Clinic, [facility] Questions regarding [facility] Bariatric Surgery Program patients: please call [phone]. documented in this encounter Plan of Treatment Not on filedocumented as of this encounter Procedures Procedure Name Priority Date/Time Associated Comments Diagnosis HEMOGRAM Routine 11/08/2017 11:40 Disorder of iron Results for this AM EDT metabolism procedure are in Status post the results bariatric surger y section. Intestinal malabsorption, unspecified type Fatigue, unspecified type IRON AND TIBC Routine 11/08/2017 11:40 Disorder of iron Result s for this AM EDT metabolism procedure are in Status post the results bariatric surger y section. Intestinal malabsorption, unspecified type Fatigue, unspecified type VITAMIN D, 25-HYDROXY Routine 11/08/2017 11:40 Disorder of iro n Results for this AM EDT metabolism procedure are in Status post the results bariatric surger y section. Intestinal malabsorption, unspecified type Fatigue, unspecified type Vitamin D deficiency PREALBUMIN Routine 11/08/2017 11:40 Disorder of iron Results for this AM EDT metabolism procedure are in Status post the results bariatric surger y section. Intestinal malabsorption, unspecified type Fatigue, unspecified type FOLATE, SERUM Routine 11/08/2017 11:40 Disorder of iron Result s for this AM EDT metabolism procedure are in Status post the results bariatric surger y section. Intestinal malabsorption, unspecified type Fatigue, unspecified type FERRITIN Routine 11/08/2017 11:40 Disorder of iron Results for this AM EDT metabolism procedure are in Status post the results bariatric surger y section. Intestinal malabsorption, unspecified type Fatigue, unspecified type VITAMIN B12 Routine 11/08/2017 11:40 Disorder of iron Results for this AM EDT metabolism procedure are in Status post the results bariatric surger y section. Intestinal malabsorption, unspecified type Fatigue, unspecified type COMPREHENSIVE Routine 11/08/2017 11:40 Disorder of iron Result s for this METABOLIC PANEL AM EDT metabolism procedure are in (NON-FASTING) Status post the results bariatric surger y section. Intestinal malabsorption, unspecified type Fatigue, unspecified type documented in this encounter Results Folate, serum (11/08/2017 11:40 AM EDT) P athologist Signature Folate Lvl >20.0 4.8 - 24.2 [place] ng/mL [facility] Specimen Anatomical Collection Method Collection Time Receive d Time (Source) Location / / Volume Laterality Blood specimen 11/08/2017 11:40 8 (specimen) AM EDT 11:44 AM EDT Resulting Agency Comment Spec In Lab Clementina Casanova APRN CHEMISTRY ORDERABLES Performing Organization Address City/[facility]/[place] [address] (ABNORMAL) Vitamin B12 (11/08/2017 11:40 AM EDT) Analysis Performed At Patho logist Time Signature Vitamin B-12 1,278 (H) 232 - MAX [place] 1,245 [facility] pg/mL [facility] Specimen Anatomical Collection Method Collection Time Receive d Time (Source) Location / / Volume Laterality Blood specimen 11/08/2017 11:40 8 (specimen) AM EDT 11:44 AM EDT Resulting Agency Comment Spec In Lab Clementinaselam Casanova LEGAL REFEREE CHEMISTRY ORDERABLES Performing Organization Address City/[facility]/[place] [address] Vitamin D, 25-Hydroxy (11/08/2017 11:40 AM EDT) athologist Signature 25-OH Vit D 66 30 - 100 [place] Total ng/mL [facility] Comment: Deficient <10 ng/mL Insufficient 10 to 29 ng/mL Sufficient 30 to 100 ng/mL Potential Intoxication >100 ng/mL According to the [place] National Osteoporosi s Foundation, Vitamin D concentrations >30 ng/mL are sufficient to protect bone health. ??The National Kidney Foundation has similarly stated that pat ients with Vitamin D concentrations <30ng/mL should be considered to be insu fficient or deficient. http://[employer]/nkf-guidelines http://[employer]/nejm-VitD The [employer] Vitamin D Immunoassay detec ts both 25-OH Vitamin D2 and 25-OH Vitamin D3, but only a total Vitamin D c oncentration is reported. Specimen Anatomical Collection Method Collection Time Receive d Time (Source) Location / / Volume Laterality Blood specimen 11/08/2017 11:40 8 (specimen) AM EDT 12:32 PM EDT Resulting Agency Comment Spec In Lab Clementina Casanova APRN CHEMISTRY ORDERABLES Performing Organization Address City/[facility]/[place] [address] Ferritin (11/08/2017 11:40 AM EDT) athologist Signature Ferritin 48 15 - 150 [place] ng/mL [facility] Comment: Pediatric reference ranges not verified at [facility], interpret with caution. Reference ranges for females greater jose n 50 years of age approach values for men, i.e., 30-400 ng/mL. Specimen Anatomical Collection Method Collection Time Receive d Time (Source) Location / / Volume Laterality Blood specimen 11/08/2017 11:40 8 (specimen) AM EDT 11:44 AM EDT Resulting Agency Comment Spec In Lab Clementina L Edilberto LEGAL REFEREE CHEMISTRY ORDERABLES Performing Organization Address City/[facility]/[place] [address] (ABNORMAL) Iron and TIBC (11/08/2017 11:40 AM EDT) Analysis Performed At Patho logist Time Signature Iron 72 30 - 150 [facility] mcg/dL [facility] TIBC 229 (L) 250 - 450 [facility] mcg/dL [facility] Iron Saturation 31 20 - 50 % [facility] Specimen Anatomical Collection Method Collection Time Receive d Time (Source) Location / / Volume Laterality Blood specimen 11/08/2017 11:40 8 (specimen) AM EDT 11:44 AM EDT Resulting Agency Comment Spec In Lab Clementina Bagleyartemio MARROQUINN CHEMISTRY ORDERABLES Performing Organization Address City/State/ZIP Code Phon e Number [address] (ABNORMAL) Prealbumin (11/08/2017 11:40 AM EDT) athologist Signature Prealbumin 15 (L) 20 - 40 [facility] mg/dL [facility] Comment: Prealbumin levels are generally lower in the pediatric population; adult concentrations are usually attained near puberty. Specimen Anatomical Collection Method Collection Time Receive d Time (Source) Location / / Volume Laterality Blood specimen 11/08/2017 11:40 8 (specimen) AM EDT 11:44 AM EDT Resulting Agency Comment Spec In Lab Clementina Jessika Edilberto LEGAL REFEREE CHEMISTRY ORDERABLES Performing Organization Address City/[facility]/ZIP Code Phon e Number [address] Comprehensive metabolic panel (non-fasting) (11/08/2017 11:40 AM EDT) P athologist Signature Glucose Lvl 90 65 - 199 [facility] mg/dL [facility] Comment: Diabetes: >=200 mg/dL plus symp toms BUN 9 8 - 18 mg/dL [facility] Creatinine 0.70 0.70 - 1.20 mg/dL [facility] Sodium 141 135 - 145 mmol/L [facility] Potassium 4.1 3.5 - 5.0 mmol/L [facility] Comment: Please note: ??Patients with WBC >100,00 0 may have falsely elevated Potassium levels. ??For accurate Potassium quantif ication in these patients send serum separator tube (gold top) for subsequent determinations. ??Contact the Clinical Chemistry Laboratory if there are any qu estions. Chloride 103 98 - 107 mmol/L [facility] CO2 27 22 - 31 mmol/L [facility] Anion Gap 11 5 - 15 mmol/L [facility] Calcium 9.2 8.5 - 10.5 mg/dL [facility] Total Protein 7.1 6.1 - 8.0 gm/dL [facility] Albumin 3.7 3.2 - 5.2 gm/dL [facility] AST 14 0 - 30 unit/L [facility] ALT 12 0 - 30 unit/L [facility] Alk Phos 67 40 - 104 unit/L [facility] Total Bilirubin 0.3 0.2 - 1.3 mg/dL [facility] Estimated GFR 102 >=60 mL/min/1.73 m?? [facility] Comment: The eGFR was calculated using the CKD-EP I equation. As with all creatinine based estimates of kidney function, eGFR values calculated with the CKD-EPI equation are not accurate in patients wi th acute kidney failure, extremes of body mass or the acutely ill. [email or web address] eGFR 118 >=60 mL/min/1.73 m?? [facility] Comment: The eGFR was calculated using the CKD-EP I equation. As with all creatinine based estimates of kidney function, eGFR values calculated with the CKD-EPI equation are not accurate in patients wi th acute kidney failure, extremes of body mass or the acutely ill. [email or web address] Specimen Anatomical Collection Method Collection Time Receive d Time (Source) Location / / Volume Laterality Blood specimen 11/08/2017 11:40 8 (specimen) AM EDT 11:44 AM EDT Resulting Agency Comment Spec In Lab Clementina Casanova APRN CHEMISTRY ORDERABLES Performing Organization Address City/State/[place] [address] (ABNORMAL) Hemogram (11/08/2017 11:40 AM EDT) Analysis Performed At Patho logist Time Signature WBC 8.8 4.0 - 9.5 [facility] x10(3)/[facility] LABORATORY RBC 4.61 4.00 - [place]ISH 5.21 [facility] x10(6)/[facility] LABORATORY Hemoglobin 14.7 11.7 - [facility] 15.5 gm/dL [facility] Hematocrit 44.2 35.7 - [facility] 45.8 % [facility] MCV 95.9 (H) 82.6 - [facility] 94.4 [facility] LABORATORY MCH 31.9 27.1 - [facility] 32.0 pg [facility] MCHC 33.3 31.7 - [facility] 35.0 gm/dL [facility] Platelets 268 145 - 357 [facility] x10(3)/[facility] LABORATORY RDWSD 47.8 (H) 37.0 - [facility] 46.0 [facility] LABORATORY RDWCV 13.4 11.5 - [facility] 14.1 % [facility] MPV 10.1 7.6 - 12.9 [facility] LABORATORY nRBC % Auto 0.0 % [facility] nRBC Abs Auto 0.000 0.000 - [facility] 0.000 [facility] x10(3)/[facility] LABORATORY Specimen Anatomical Collection Method Collection Time Receive d Time (Source) Location / / Volume Laterality Blood specimen 11/08/2017 11:40 8 (specimen) AM EDT 11:44 AM EDT Resulting Agency Comment Spec In Lab Clementina Casanova APRN HEMATOLOGY ORDERABLES Performing Organization Address City/State/[place] [address] documented in this encounter Visit Diagnoses Diagnosis Disorder of iron metabolism Other disorders of iron metabolism Status post bariatric surgery Bariatric surgery status Intestinal malabsorption, unspecified ty pe Gastroesophageal reflux disease, esophag itis presence not specified Fatigue, unspecified type Vitamin D deficiency Unspecified vitamin D deficiency Candidal intertrigo Candidiasis of skin and nails documented in this encounter Care Teams Repacker Relationship Specialty Start Date End Date Adelia Esquivel APRN PCP - General Family Medicine 09/30/17 [address] [place] [address] documented as of this encounter
--- OUTSIDE RECORDS SUMMARY | 2022-01-13 19:38 | XMS_ITS | Encounter Summary ---
:[address] [facility] Address [address] [place] [address] Care Team Providers Name Role Phone AlvinAdelia lobo MANE Primary Care Provider [phone] Encounter Details Date Type Department Care Team Description 02/05/2020 Lab Requisition [facility] Outr Resulting Lab, Pathology & Laboratory Provider [facility] [address] [place] [address] Social History Tobacco Use Types Packs/Day Years Used Date Smoking Tobacco: Never Assessed Sex Assigned at Date Recorded Not on file documented as of this encounter Plan of Treatment Not on filedocumented as of this encounter Procedures Procedure Name Priority Date/Time Associated Diagnosis Comme nts HEPATITIS C AB W Routine 02/05/2020 11:32 Results for this REFLEX TO HCV RNA EST procedure are in BY PCR the results section. PTH INTACT Routine 02/05/2020 11:32 Results for this EST procedure are i n the results section. documented in this encounter Results PTH INTACT (02/05/2020 11:32 EST) P athologist Signature Intact PTH 47 19 - 88 02/08/2020 [facility] pg/mL 10:52 EST CENTER LABORATORY SERVICES Specimen Anatomical Collection Method Collection Time Receive d Time (Source) Location / / Volume Laterality Blood VENOUS BLOOD / 02/05/2020 11:32 0 Unknown EST 16:33 EST Provider Outr Resulting Lab CHEMISTRY & BLOOD GAS SAMARA DAVIS Performing Organization Address City/State/ZIP Code Phon e Number [facility] [address] [place] [address] SERVICES HEPATITIS C AB W REFLEX TO HCV RNA BY PCR (02/05/2020 11:32 EST) Analysis Performed At Patho logist Time Signature Hep C Antibody Negative Negative 02/08/2020 [facility] 10:51 EST CENTER LABORATORY SERVICES Specimen Anatomical Collection Method Collection Time Receive d Time (Source) Location / / Volume Laterality Blood VENOUS BLOOD / 02/05/2020 11:32 0 Unknown EST 16:26 EST Provider Outr Resulting Lab CHEMISTRY & BLOOD GAS SAMARA DAVIS Performing Organization Address City/State/ZIP Code Phon e Number [facility] [address] [place] [address] SERVICES documented in this encounter Visit Diagnoses Not on filedocumented in this encounter Care Teams Masonry Supervisor Relationship Specialty Start Date End Date Adelia Esquivel APRN PCP - General 11/20/19 [address] [place] [address] documented as of this encounter
--- OUTSIDE RECORDS SUMMARY | 2022-01-13 19:38 | XMS_ITS | Encounter Summary ---
:1970 [place] [address] Care Team Providers Name Role Phone dAelia Esquivel APRN Primary Care Provider [phone] Encounter Details Date Type Department Care Team Description 12/12/2017 [facility] b ariatric surgery [address] [place] [address] [facility] [phone] [place] [address] Social History Tobacco Use Types Packs/Day Years Used Date Smoking Tobacco: Never Smokeless Tobacco: Never Alcohol Use Standard Drinks/Week Comments No 0 (1 standard drink = 0.6 oz pure alcoho l) Sex Assigned at Date Recorded Not on file documented as of this encounter Plan of Treatment Not on filedocumented as of this encounter Visit Diagnoses Diagnosis S/P bariatric surgery Bariatric surgery status documented in this encounter Care Teams Motion Picture Director Relationship Specialty Start Date End Date Adelia Esquivel APRN PCP - General Family Medicine 09/30/17 [address] [place] [address] documented as of this encounter
--- OUTSIDE RECORDS SUMMARY | 2022-01-13 19:38 | XMS_ITS | Encounter Summary ---
:1970 [place] [address] Care Team Providers Name Role Phone Adelia Esquivel APRN Primary Care Provider [phone] Encounter Details Date Type Department Care Team Description 05/19/2018 Notes Only General Surgery at [facility] Мария Govea [address] [facility] [place] [address] [place] [address] Social History Tobacco Use Types Packs/Day Years Used Date Smoking Tobacco: Never Smokeless Tobacco: Never Alcohol Use Standard Drinks/Week Comments No 0 (1 standard drink = 0.6 oz pure alcoho l) Sex Assigned at Date Recorded Not on file documented as of this encounter Progress Notes Мария Govea, ANALISA - 05/19/2018 10:24 AM EDT Bariatric Surgery Program Nutrition Follow-up Note 05/19/2018 Provider: Мария Govea MS, RD, LD Reason for encounter: Lilliam Munguia is a 48 y.o. female who is seen today for an 8+ month follow-up visit. She is also seeing Clementina Casanova APRN for an evaluation today Date of Surgery: 07/11/18 RNY gastric bypass Topics Discussed/Patient Concerns: Feels great; tolerating a healthy diet without difficulty; currently between jobs after a break to spend time in [place] to help out after loss of her niece. Uses an [employer] frequently for meals Weight History: Date Weight (lbs) HT BMI Comments ~2005 250# ? Highest Weight (per pt) 08/06/16 247.6# ? Initial program weight 04/04/17 248.1# 67 38.8 1st pre-op visit 07/11/17 232# EWL % ?? Surgery 08/07/17 217# 35% 34.0 1 month post-op 11/08/17 186.7# 69% 29.2 4 months post-op 05/19/18 143# 119% 22 10 months post-op Freedom Body Weight (based on BMI of 25): 159# Excess Weight: 89# 30-70% Excess Weight Loss: 185-221# ; 50% Excess Weight Loss: 203# ?? Vitamin/Mineral Supplements (reported by patient): Supplement Type Brand/Form Dosage/Amount Frequency Comments Multivitamin Bariatric Fusion 1 pill 4 x daily ?? Calcium Vitamin B12 ? Iron ? Vitamin D2 ? 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 Excellent energy level! Meeting fluid and proteintargets; compliant with vitamins; extremely good activity/exercise levels; presents as highly motivated to remain on track NUTRITION INTERVENTION & MONITORING: ?? Follow-up in 6 months ?? Provided support/encouragement and reinforced importance of meeting nutritional goals. ?? Reviewed nutrition and vitamin and mineral supplement recommendations (see patient instructions). ?? Written recommendations provided. Patient agreed with these and verbalized adequate understanding. ?? Evaluation by nurse practitioner today. ?? [employer] Booklet Provided for reference documented in this encounter Plan of Treatment Not on filedocumented as of this encounter Visit Diagnoses Not on filedocumented in this encounter Care Teams Acid Tank Cleaner Relationship Specialty Start Date End Date Adelia Esquivel APRN PCP - General Family Medicine 09/30/17 [address] [place] [address] documented as of this encounter
--- OUTSIDE RECORDS SUMMARY | 2022-01-13 19:38 | XMS_ITS | Clinical Summary ---
:[address] [facility] Address [address] [place] [address] Care Team Providers Name Role Phone Adelia Esquivel MONITORING SPECIALIST Primary Care Provider [phone] Social History Tobacco Use Types Packs/Day Years Used Date Smoking Tobacco: Never Assessed Sex Assigned at Date Recorded Not on file Plan of Treatment Health Maintenance Due Date Last Done Comments COVID-19 Vaccine (#1) 1970 Hepatitis C Screen Completed 02/05/2020 Care Teams Sheet Manufacturing Supervisor Relationship Specialty Start Date End Date Adelia Esquivel, MONITORING SPECIALIST PCP - General 11/20/19 [address] [place] [address]
--- OUTSIDE RECORDS SUMMARY | 2022-01-13 19:38 | XMS_ITS | Encounter Summary ---
:1970 Author Organization [facility] Address [address] [place] [address] Care Team Providers Name Role Phone Adelia Esquivel MANE Primary Care Provider [phone] Encounter Details Date Type Department Care Team Description 11/20/2019 Lab Requisition [facility] Dianna Otero, Polyp of colon; Pathology & MD Encounter for screening for malignant ne oplasm of colon Laboratory Medicine [address] [address] [place] [address] Social History Tobacco Use Types Packs/Day Years Used Date Smoking Tobacco: Never Assessed Sex Assigned at Date Recorded Not on file documented as of this encounter Plan of Treatment Not on filedocumented as of this encounter Procedures Procedure Name Priority Date/Time Associated Diagnosis Comme nts SURGICAL PATHOLOGY Today 11/20/2019 10:07 Polyp of colon Res ults for this EDT procedure are i n the results section. documented in this encounter Results SURGICAL PATHOLOGY (11/20/2019 10:07 EDT) Component Value Ref Test Analysis Performed At [facility] Range Method Time Signature Final A. COLON, DESCENDING POLYPS X2, BIOPSIES: 11/24/2019 [facility] Diagnosis - Fragments of tubular adenoma(s). 10:48 EDT CENTER LABORATORY B. COLON, SIGMOID POLYP, BIOPSIES: SERVICES - Fragments of tubular adenoma. Attestation By the signature 11/24/2019 [facility] MEDICA L Electronically below, the 10:48 EDT CENTER signed by attending LABORATORY Lu Moul[place] physician SERVICES MD Ron on certifies that 2019 at they have 1) 1048 personally conducted a gross and/or microscopic examination of the described specimen(s), and/or personally interpreted the results of laboratory testing of the described specimen(s), and 2) personally rendered or confirmed the above diagnosis. Clinical Colonoscopy 11/24/2019 [facility] MED[facility] History screening 10:48 T CENTER LABORATORY SERVICES Gross A. 11/24/2019 [facility] Description Received in formalin chemo d with proper patient identification (initials G, D) and 1. Descending colon Bx x2 are 4 thibodeaux-brown tissues (0.2 x 0.2 x 0.1 cm to 0.6 x 0.2 x 0.1 cm). Submitted in toto in A1 and A2. 10:48 [facility] LABORATORY B. SERVICES Received in formalin chemo d with proper patient identification (initials G, D) and 2. Sigmoid polyp are 2 thibodeaux-pink tissue fragments (0.2 x 0.1 x 0.1 cm and 0.4 x 0.4 x 0.2 cm). Submitted in toto in B1. SANTIAGO AUGUSTINE 11/20/2019 16:38 Performing Lab [facility] 11/24/2019 [facility] MEDIC AL LAB 10:48 [facility] LABORATORY SERVICES Scanned Images 11/24/2019 [facility] 10:48 [facility] LABORATORY SERVICES Specimen Anatomical Collection Method Collection Time Receive d Time (Source) Location / / Volume Laterality Tissue ENTIRE SIGMOID 11/20/2019 10:07 0 COLON / Unknown EDT 15:48 EDT Tissue specimen ENTIRE SIGMOID 11/20/2019 10:07 2019 (specimen) COLON / Unknown EDT 15:48 EDT Dianna Otero MD PATHOLOGY ORDERABLES Performing Organization Address City/State/ZIP Code Phon e Number [facility] [address] [place] [address] SERVICES documented in this encounter Visit Diagnoses Diagnosis Polyp of colon Benign neoplasm of colon Encounter for screening for malignant ne oplasm of colon Special screening for malignant neoplasm s, colon documented in this encounter Care Teams Smoking Pipe Maker Relationship Specialty Start Date End Date Adelia Esquivel, HIGH SCHOOL MATHEMATICS TEACHER PCP - General 11/20/19 [address] [place] [address] documented as of this encounter
--- OUTSIDE RECORDS SUMMARY | 2022-01-13 19:38 | XMS_ITS | Encounter Summary ---
:1970 [place] [address] Care Team Providers Name Role Phone Adelia Esquivel APRN Primary Care Provider [phone] Reason for Visit Reason Comments Medication Refill Encounter Details Date Type Department Care Team Description 11/20/2017 Refill General Surgery at [facility] Clementina Casanova APRN Vitamin D deficiency [facility] [place] [address] [facility] [phone] [place] [address] (Wo rk) Social History Tobacco Use Types Packs/Day Years Used Date Smoking Tobacco: Never Smokeless Tobacco: Never Alcohol Use Standard Drinks/Week Comments No 0 (1 standard drink = 0.6 oz pure alcoho l) Sex Assigned at Date Recorded Not on file documented as of this encounter Plan of Treatment Not on filedocumented as of this encounter Visit Diagnoses Diagnosis Vitamin D deficiency Unspecified vitamin D deficiency documented in this encounter Care Teams Backhaul Driver Relationship Specialty Start Date End Date Adelia Esquivel APRN PCP - General Family Medicine 09/30/17 [address] [place], [place] [address] documented as of this encounter
--- OUTSIDE RECORDS SUMMARY | 2022-01-13 19:38 | XMS_ITS | Encounter Summary ---
:1970 Author Organization [facility] Address [address] [place] [address] Care Team Providers Name Role Phone Unavailable Primary Care Provider Unavailable Encounter Details Date Type Department Care Team Description 04/11/2011 Results Only [facility] Ralph Pat FNP Laboratory Services - [place] [address] [address] [place], [place] [address] [phone] Social History Tobacco Use Types Packs/Day Years Used Date Smoking Tobacco: Never Assessed Sex Assigned at Date Recorded Not on file documented as of this encounter Plan of Treatment Not on filedocumented as of this encounter Procedures Procedure Name Priority Date/Time Associated Diagnosis Comme nts PAP TEST- RESULT Routine 04/11/2011 0:00 EST Resu lts for this ONLY procedure are i n the results section. documented in this encounter Results PAP TEST- RESULT ONLY (04/11/2011 0:00 EST) Component Value Ref Test Analysis Performed At Psychiatric Method Time Signature Pathology CYTOPATHOLOGY REPORT [facility] Report: [facility] Reports generated via electronic interface contain original data; however they are lacking the format of the original report. Caution should be taken when reading/interpreting unformatte d reports. Name: ? JONATHAN MUNGUIA ? Accession #: ? [id number] : ? 1970 (Age: 41) ??F ?Collect Date: ? 04/11/2011 Location: ? [facility] ? Receive Date: ? 04/12/2011 Provider: ?RALPH PENAP Copy to: ? Specimen/Source: ? Pap Test, Cervix/Endocervix, ThinPrep Imaging System with manual evaluation Last Menstrual Period: ? 03/11/11 Other: ? Additional clinical information: remote hx with abnormality ? SPECIMEN ADEQUACY ? Satisfactory for Evaluation - transformation zone component present GENERAL CATEGORIZATION ? Other, see interpretation INTERPRETATION ? Endometrial cells present in a woman equal to o r greater than age 40. Negative for Intraepithelial Lesion. EDUCATIONAL NOTES/RECOMMENDATIONS ? Benign appearing endometrial cells on Pap tests are usually a normal finding in women with regular menstrual cycles, especially if the Pap test was collected during the first half of the menstrual cycle. There is data showing that e ndometrial cells on Pap tests may be associated with endometrial/uterine abnormal ities in post menopausal women or in perimenopausal women with abnormal bleeding. There is limited data on the significance of leo ign endometrial cells in post menopausal women on HRT. ??Clinical correlation is recommend ed. Note: ??The Pap test is not an accurate test for the screening of endometrial lesions and should not be used as a follow up in patients wi th clinical suspicion of endometrial pathology. ? Document reviewed and electronically signed by: ? Tamika Poon, SCT(ASCP) ? Report Date: ??04/17/2011 14:51 End of Report Specimen (Source) Anatomical Location Collection Method / Collectio n Time Received Time / Laterality Volume 04/11/2011 04/12/2011 Ralph THOMSON PATHOLOGY ORDERABLES Performing Organization Address City/State/ZIP Code Phon e Number [facility] [address] [place] [address] SERVICES [facility] [address] [place] [phone] documented in this encounter Visit Diagnoses Not on filedocumented in this encounter
--- OUTSIDE RECORDS SUMMARY | 2022-01-13 19:38 | XMS_ITS | Encounter Summary ---
:1970 Author Organization [facility] Address [address] [place] [address] Care Team Providers Name Role Phone Unavailable Primary Care Provider Unavailable Encounter Details Date Type Department Care Team Description 09/05/2009 Results Only [facility] Ralph Pat FNP Laboratory Services - [place] [address] [address] [place], [place] [address] [phone] Social History Tobacco Use Types Packs/Day Years Used Date Smoking Tobacco: Never Assessed Sex Assigned at Date Recorded Not on file documented as of this encounter Plan of Treatment Not on filedocumented as of this encounter Procedures Procedure Name Priority Date/Time Associated Diagnosis Comme [facility] CYTOPATHOLOGY Routine 09/05/2009 0:00 EDT Results for this procedure are i n the results section . documented in this encounter Results CYTOPATHOLOGY (09/05/2009 0:00 EDT) Component Value Ref Test Analysis Performed At [facility] Method Time [facility] Pathology CYTOPATHOLOGY REPORT ? [facility] Report: ? [facility] Reports generated via electr onic interface contain original data; ? however they are lacking the format of the original report. ? Caution should be taken when reading/interpreting unformatted reports. ? Name: ? SHAUNNA, DAGNY ? Accession #: ? [id number] ? : ? 1970 (Age: 39) ??F ?Collect Date: ? 09/05/2009 ? Location: ? [facility] ? Receive Date: ? 09/07/2009 ? Provider: ?RALPH HES S [employer] FITNESS INSTRUCTOR ? Copy to: ? Specimen/Source: ? Pap Test, Cervix/Endocervix, ThinPrep Imaging System ? with manual evaluation ? Last Menstrual Period: ? Other: ? Additional clinical informat ion: Nabothian cyst on portio-has been noted in past HPVA - HPV testing requested if ASC-US on the current ThinPrep Pap test. ? SPECIMEN ADEQUACY ? Satisfactory for Eval uation ? - transformation zone compon ent present ? GENERAL CATEGORIZATION ? Negative for Intraepi thelial Lesion or Malignancy ? Document reviewed and electr onically signed by: ? Joi Verville,CT(ASCP) ? Report Date: ??07/16/ 2010 11:05 ? End of Report ? Specimen (Source) Anatomical Location Collection Method / Collectio n Time Received Time / Laterality Volume 09/05/2009 09/07/2009 Ralph Pat [employer] FITNESS INSTRUCTOR PATHOLOGY ORDERABLES Performing Organization Address City/State/ZIP Code Phon e Number [facility] [address] [place] [address] SERVICES [facility] [address] [place] [address] documented in this encounter Visit Diagnoses Not on filedocumented in this encounter
--- OUTSIDE RECORDS SUMMARY | 2022-01-13 19:38 | XMS_ITS | Encounter Summary ---
:1970 Author Organization [facility] Address [address] [place] [address] Care Team Providers Name Role Phone Unavailable Primary Care Provider Unavailable Encounter Details Date Type Department Care Team Description 01/22/2003 Results Only [facility] [place] NP conversion [address] [place] [address] [place] [address] [phone] Social History Tobacco Use Types Packs/Day Years Used Date Smoking Tobacco: Never Assessed Sex Assigned at Date Recorded Not on file documented as of this encounter Plan of Treatment Not on filedocumented as of this encounter Procedures Procedure Name Priority Date/Time Associated Diagnosis Comme nts CYTOPATHOLOGY Routine 01/22/2003 0:00 EST Results for this procedure are i n the results section . documented in this encounter Results CYTOPATHOLOGY (01/22/2003 0:00 EST) Component Value Ref Test Analysis Performed At [facility] Method Time [facility] Pathology CYTOPATHOLOGY REPORT [facility] Report: [facility] Reports generated via electronic interface contain original data; however they are lacking the format of the original report. Caution should be taken when reading/interpreting unformatte d reports. Name: ? LILLIAM MUNGUIA ? Accession #: ? [id number] : ? 1970 (Age: 33) ??F ?Collect Date: ? 01/22/2003 Location: ? [facility] ? Receive Date: ? 01/26/2003 Provider: ?JOSHUA PIERRE NP Copy to: ? Specimen/Source: ?ThinPrep Pap Test, Cervix/Endoce rvix Last Menstrual Period: ? 01/04/03 Other: ? HPVA - HPV testing requested if ASC-US on the current ThinPr ep Pap test. ? SPECIMEN ADEQUACY ? Satisfactory for Evaluation - transformation zone component present GENERAL CATEGORIZATION ? Negative for Intraepithelial Lesion or Malignancy ? Document reviewed and electronically signed by: ? AIMEE Munoz(ASCP) ? Report Date: ??01/27/2003 15:27 End of Report Specimen (Source) Anatomical Location Collection Method / Collectio n Time Received Time / Laterality Volume 01/22/2003 01/26/2003 Joshua Pierre NP PATHOLOGY ORDERABLES Performing Organization Address City/State/ZIP Code Phon e Number [facility] [address] [place] [address] SERVICES [facility] [address] [place] [address] documented in this encounter Visit Diagnoses Not on filedocumented in this encounter
--- OUTSIDE RECORDS SUMMARY | 2022-01-13 19:39 | XMS_ITS | Encounter Summary ---
:1970 Author Organization [facility] [place] [address] Care Team Providers Name Role Phone Karly Riojas APRN Primary Care Provider [phone] Encounter Details Date Type Department Care Team Description 09/10/2016 Telephone General Surgery at [facility] [place] [address] Social History Tobacco Use Types Packs/Day Years Used Date Smoking Tobacco: Never Assessed Sex Assigned at Date Recorded Not on file documented as of this encounter Miscellaneous Notes Telephone Encounter - Ruby Dasilva - 09/10/2016 4:39 PM EDT Spoke on the phone with this patient to let her know that I got her weight history and that she doesqualify for bariatric surgery. I told her to that I will process her registration and that she is welcomed to give me a call whenever she has questions. documented in this encounter Plan of Treatment Not on filedocumented as of this encounter Visit Diagnoses Not on filedocumented in this encounter Care Teams Glass Calibrator Relationship Specialty Start Date End Date Karly Riojas APRN PCP - General Family Medicine 08/10/16 09/29/17 [address] [place] [address] documented as of this encounter
--- OUTSIDE RECORDS SUMMARY | 2022-01-13 19:39 | XMS_ITS | Encounter Summary ---
:1970 Author Organization [facility] [place] [address] Care Team Providers Name Role Phone Karly Riojas APRN Primary Care Provider [phone] Reason for Visit Reason Comments Follow Up Surgery Encounter Details Date Type Department Care Team Description 08/07/2017 Office Visit General Surgery at Clementina Casanova APRN [facility] [address] [place] [address] S/P bariatric surgery [facility] Aleksandra Luna [address] [facility] [place] [address] [place] [id number] Social History Tobacco Use Types Packs/Day Years Used Date Smoking Tobacco: Never Smokeless Tobacco: Never Alcohol Use Standard Drinks/Week Comments No 0 (1 standard drink = 0.6 oz pure alcoho l) Sex Assigned at Date Recorded Not on file documented as of this encounter Last Filed Vital Signs Vital Sign Reading Time Taken Comments Blood Pressure 148/88 08/07/2017 2:27 PM EDT Pulse 101 08/07/2017 11:49 AM EDT Temperature 36.8 ??C (98.2 ??F) 08/07/2017 11:49 AM EDT Respiratory Rate 12 08/07/2017 11:49 AM EDT Oxygen Saturation 99% 08/07/2017 11:49 AM EDT Inhaled Oxygen Concentration - - Weight 98.4 kg (217 lb) 08/07/2017 11:49 AM EDT Height 170.2 cm (5' 7) 08/07/2017 11:49 AM EDT Body Mass Index 33.99 08/07/2017 11:49 AM EDT documented in this encounter Patient Instructions Patient InstructionsClementina Casanova, B2B SALES EXECUTIVE - 08/07/2017 12:00 PM EDT Bariatric Surgery Program First Post-operative Follow up visit Contact information: [facility] applications support engineer: Connie: [phone] and Stacey [phone] Dietitians: [phone] Surgeons/ nurse practitioners: [phone] Nurse line: [phone] Next follow up visit: at 4 months post-op. Testing: Labwork will be done at your 4 month post op check. If you have labwork done by your doctor before that date, please have it sent to the Bariatric Surgery Program. Continue checking your bp at home, if increases (consistently 140/90 or above) check in with pcp foradjustment Post surgery Medications: 1. Medication to prevent ulcer, as prescribed prior to surgery, needs to continue until you are at least 3 months post surgery, or as indicated by your primary care doctor. 2. If you have a gallbladder, continue to take Ursodiol 300 mg twice daily for a total of 6 months after surgery to prevent gallstones from forming, and to shrink any gallstones that may be present. You may open the capsule if difficult to tolerate Vitamin and mineral supplementation recommendations: The following vitamins are recommended: ??? Multivitamins with minerals - Bariatric Fusion 1 pill 4 x daily. (Procare capsule is an all in one but you will need the calcium citrate 2/2x daily ??? Vitamin D as prescribed Nutrition recommendations: - Keep up the great work meeting protein goals. OK to try salad once you try Stage IV diet. - Your Daily Goals: ?? 3 meals per day. Snacks if physically hungry or you need to increase your protein and/or calories(choose protein and/or fruit) ?? 60 grams protein per day (20 grams per meal) ?? 48-64 oz of non-caloric and hydrating fluids per day (6-8, 8 oz cups) Activity: ??? Continue regular exercise as tolerated. ??? You may return to the gym Alcohol: is not recommended for at least 6-12 months after surgery. It should be used sparingly, no more than one drink per occasion. Alcohol is a source of empty calories and can cause ulcers and vitamin and mineral deficiencies. Studies have noted that there is an increased risk of alcohol dependence after surgery. Hair Loss: is associated with rapid weight loss and is seen approximately 3 to 6 months after surgery and can last 3 to 6 months. It is almost always temporary. Eating a healthy diet with 60 grams of protein per day and taking your multivitamin with minerals will help. control for women of child bearing age: is recommended for at least 18-24 months after surgery. Call us: ??? If you have concerns. ??? If you have unexplained abdominal pain. ??? if you see blood in your stool or vomit blood ??? If you have prolonged vomiting Post Surgery Support Group: Our post surgery support group meets on the first Saturday of every month from 1-2 PM at [facility] Nutrition and Activity apps- Baritastic, My Fitness Pal, Lose It, My Plate Internet resources: www.Recoup wwwStartupHighway www.bariatriceating.Mist.io www.[employer].Mist.io/blog [facility] facebook page: https://www.facebook.com/[email or web address]ric[facility] Books & Magazines: - Recipes for Life After Weight Loss Surgery by Zulma Boothe - Shrink Yourself by Dr Luis [place] - Eating Well - Cooking Light documented in this encounter Progress Notes Clementina Casanova APRN - 08/07/2017 12:00 PM EDT Reason for visit: First post-operative check S/P laparoscopic Med-en-Y gastric bypass with intraoperative endoscopy on 07/11/2017 Complications summary: Early none Late - Visits summary: Compliance with [facility] follow up: good Attendance at [facility] post-operative graduate support group meetings:none Pre-op 04/04/2017 Wt (lbs) 248 BMI 38.8 Visit #2 WT: HT: 67 Post-op %EBW lost Supplement compliance Labwork 08/07/2017 217 34 35 Good, see RD note -at next visit, 4 month post op Next visit with lab: Patient Active Problem List Diagnosis Code ??? Obesity, Class II, BMI 35-39.9, with comorbidity-doing well s/p RNY E66.9 ??? Depression-reports ok, switched wellbutrin to 100mg TID rather than 300mg XL, this was about a week ago, feels she may benefit more from this dosing F32.9 ??? Anxiety-reports stable F41.9 ??? Essential hypertension-has been good at home and with PCP, was stressed getting here today, stuck in traffic- on losartan I10 ??? Gastroesophageal reflux-denies any s/s on ppi K21.9 ??? Anemia, iron deficiency-not evaluated today, currently no s/s D50.9 ??? Menorrhagia-resolved with mirena- did have a light period pre an post op N92.0 ??? Vitamin D deficiency- taking 50,000 units weekly E55.9 ??? S/P gastric bypass-doing well post op Z98.84 Medications 08/07/17 1232 Medication Sig Taking? buPROPion (WELLBUTRIN) 100 mg Tablet Take 100 [...] Take 2 tablets by mouth daily. Yes cetirizine (ZYRTEC) 10 mg Tablet Take 10 mg by mouth as needed for Allergies. Yes albuterol 90 mcg/actuation HFA Aerosol Inhaler Inhale 2 puffs into the lungs every 4 hours as neededfor Wheezing. Use with spacer Yes omeprazole (PRILOSEC) 20 mg Capsule, Delayed Release(E.C.) Take 1 capsule by mouth daily. Yes Past Surgical History: Procedure Laterality Date ??? BREAST REDUCTION SURGERY ??? PRO LAP GASTRIC BYPASS/MED-EN-Y N/A 07/11/2017 @LAPAROSCOPIC GASTROPLASTY, (WRVU 29.4) performed by Sydney Monique MD at [facility] MAIN OR ??? PRO UPPER GI ENDOSCOPY, DIAGNOSTIC N/A 07/11/2017 ENDOSCOPY, UPPER GI, DIAGNOSTIC, WITH OR WITHOUT SPECIMENS performed by Sydney Monique MD at [facility] MAIN OR Hospital course: Lilliam Munguia is a 47 y.o. female who was admitted on 07/11/2017 for laparoscopic Med-en-Y Gastric bypass with intraoperative upper endosocpy. The operative course was uneventful. On POD#1 she was started on a Gastric bypass stage I diet, and when she tolerated that she was advanced to a Gastric bypass stage II diet. She was changed to oral pain medications and the CONFERENCE PRODUCER was discontinued on POD# 1. She was voiding without difficulty. On POD# 1 the dressings were dry and intact andthe wounds were benign. She did not have a bowel movement prior to discharge but was passing flatus and taking PO without difficulty. Prior to discharge on POD#2 Lilliam Munguia was afebrile, with sta ble vital signs. On POD#2, she was discharged to home in stable condition. Visits to emergency department or other unplanned visit to a health care facility since surgery? None Subjective: Patient concerns at today's visit: Lilliam returns for her first post surgery follow up. She has no concerns today, she has some questions about diet and exercise. She is feeling well tolerating stage 3 fine, plans to start stage 4 tomorrow, wants to return to the gym, has been working without any difficulty. Dietary history/ exericse/ activity level: See dietitian note from today's visit for complete dietary evaluation. Primary care post op check: July 24 seen by pcp, no changes, bp was ok. Wound issues: none Bowel issues: none Urinary tract issues: Voiding pale yellow, several times a day Post Bariatric Surgery Required Medications: Extended VTE prophylaxis post surgery n/a Post-discharge narcotic analgesic use None Ursodiol gallstone prophylaxis Ursodiol twice a day PPI ulcer prophylaxis: Omeprazole daily Review of Systems (negative if left blank): Constitutional: [ ] fatigue Neurologic: [ ] paresthesias CV: [x] treatment for hypertension or taking antihypertensive medication [ ] treatment for hyperlipidemia Pulmonary: [] sleep apnea symptoms [ ] treated for MERARY GI: [ ] GERD, dysphagia [ ] abdominal pain [ ] hernia [ ] nausea/vomiting [ ] blood in stool PROCESSING ENGINEER: [ x] LMP: Just before and just after surgery. Light lasting 4 days [ ] control [ ] post-menopause Extremities: [ ] edema Psychiatric [ ] mental health concerns Health-related habits/other: Tobacco: none Alcohol: none Objective: General: Lilliam is a very pleasant, engaged, appropriate, healthy appearing 47 y.o. year-old female who appears stated age, NAD. Heart: S1S2 distinct. RRR, no extra sounds or murmurs Lungs: Clear all lobes A&P, effort minimal, pattern regular Abdomen: soft, non-tender, no masses. Abdominal trocar sites are pink, closed, no erythema, no induration, no heat, no discharge Extremities: no edema Vital signs: BP 148/88 (BP Location (NBP): Right arm, Patient Position: Sitting, BP Cuff Sizes: Large Adult (32-43 cm)) Pulse (!) 101 Temp 36.8 ??C (98.2 ??F) (Oral) Resp 12 Ht 170.2 cm (5' 7) Wt 98.4 kg (217 lb) SpO2 99% BMI 33.99 kg/m2 Assessment: S/P bariatric surgery 3 weeks ago, with uneventful early post- operative course. Plan: ?? she will continue Ursodiol as recommended for 6 months to reduce the risk of gallstone formation during the period of rapid weight loss.----- ?? advised to continue PPI therapy for another 2 months to decrease the risk of ulcer formation and avoid NSAIDs ?? dietary and supplement recommendations per dietitian at today's visit. ?? lifting restrictions: none ?? Next BSP follow up with labwork at 4 months post-operatively ?? Lilliam is aware that alcohol is not recommended until 6-12 months post- operatively, and then should be used in small amounts, since it is a source of empty calories and may cause ulcers, and interfere with vitamin and mineral absorption. Reviewed red flag symptoms, reviewed s/s to seek urgent care, rtc or pcp. Pt verbalizes understanding and is in agreement with plan. Questions answered to patient satisfaction. She was provided with a Bariatric Program Summary report which included the above written recommendations, as well as recommendations regarding vitamin and mineral supplementation, fluid intake and exercise. She is aware that she can call the Bariatric Surgery Program at any time with questions or concerns. RECOMMENDED BARIATRIC SURGERY PROGRAM POSTOPERATIVE FOLLOW-UP: Follow [...] RAFAEL. Labwork: Hemogram, ferritin, iron (transferrin) saturation, iron., Vitamins: folate, B1, B12, D (25 hydroxy only), Intact PTH and comprehensive metabolic profile at 4, 12 and 24 months, and yearly. Prealbumin is done at 4 and 12 months and PRN. If labwork is done by the primary child care counselor: please send a copy to the Bariatric Surgery Program, General Surgery Clinic, [facility], or fax [phone] Questions regarding [facility] Bariatric Surgery Program patients: please call [phone] - 08/07/2017 12:00 PM EDT BSP Nutrition First Post-operative Follow up SUBJECTIVE: Topics Discussed/Patient Concerns: ?? No dietary concerns. Things are going well. References her bariatric handbook when she has questions. 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 [employer]; ; 3 children - 2 w/special [...] 08/07/17 217# 35% 34.0 1 month post-op 4 months post-op [place] Body Weight (based on BMI of 25): 159# Excess Weight: 89# 30-70% Excess Weight Loss: 185-221# ; 50% Excess Weight Loss: 203# MEDICATIONS: Vitamin/Mineral Supplements (reported by patient): Supplement Type Brand/Form Dosage/Amount Frequency Comments Multivitamin Bariatric Fusion 1 pill 4 x daily Calcium Vitamin B12 Iron Vitamin D3 50,000 IU weekly Food Allergies/Intolerances: crustless quiche Tracking Intake: My Fitness Pal Daily Oral Intake: Breakfast Slim Fast or [employer] protein shake AM Snack 02/28-1/2 cup power pudding Lunch 02/28 c shredded chicken, green beans mandarin oranges PM Snack 1/2 Paraguayan yogurt (Oikos and Dannon Light and Fit) Dinner 02/28 c. spag squash, 4 c shredded chicken, marinara and parm cheese HS Snack Protein 2) OR SF popsicle OR cottage cheese Protein- grams/day: 60-70g Calories per day: ~600 Hydrating fluids - oz/day: 48-64 oz Protein 2O, water, unsweetened decaf tea Soda: None ETOH: None Caffeine: None Meals per day: 3 Other: ?? Feels full/satisfied after eating: yes. ?? Spends at least 20 minutes eating each meal: ?? Vomiting/ regurgitation: None. ?? Nausea: None. ?? Constipation/diarrhea: a little constipation. Took Miralax twice since surgery. If no BM in 2 days will have Miralax Exercise: stacking wood, biking, walking ASSESSMENT: Patient s/p bariatric surgery with 35% EWL. She is tolerating the diet well and is meeting protein and fluid needs. She is taking the recommended supplementation. She is exercising regularly. PLAN: ?? Evaluation by B2B SALES EXECUTIVE today. ?? Provided support/encouragement and reinforced importance of meeting nutritional goals. ?? Reviewed nutrition and vitamin and mineral supplement recommendations (see patient instructions). ?? Written recommendations provided. Patient agreed with these and verbalized adequate understanding. ?? Follow up at 4 months post surgery with labwork. documented in this encounter Plan of Treatment Not on filedocumented as of this encounter Visit Diagnoses Diagnosis S/P bariatric surgery Bariatric surgery status documented in this encounter Care Teams Water Conservation Specialist Relationship Specialty Start Date End Date Karly Riojas APRN PCP - General Family Medicine 08/10/16 09/29/17 [address] [place] [address] documented as of this encounter
--- OUTSIDE RECORDS SUMMARY | 2022-01-13 19:39 | XMS_ITS | Encounter Summary ---
:1970 Author Organization [facility] [place] [address] Care Team Providers Name Role Phone Karly Riojas APRN Primary Care Provider [phone] Encounter Details Date Type Department Care Team Description 06/07/2017 Telephone General Surgery at [facility] [place] [address] Social History Tobacco Use Types Packs/Day Years Used Date Smoking Tobacco: Never Smokeless Tobacco: Never Sex Assigned at Date Recorded Not on file documented as of this encounter Miscellaneous Notes Telephone Encounter - Ruby Dasilva - 06/07/2017 1:24 PM EDT LMOM for to check in with her. I told her that we actually do need something updated for her insurance authorization for surgery (psych eval). I asked her to give me a call back. documented in this encounter Plan of Treatment Not on filedocumented as of this encounter Visit Diagnoses Not on filedocumented in this encounter Care Teams Oil Distributor Relationship Specialty Start Date End Date Karly Riojas APRN PCP - General Family Medicine 08/10/16 09/29/17 [address] [place] [address] documented as of this encounter
--- OUTSIDE RECORDS SUMMARY | 2022-01-13 19:39 | XMS_ITS | Encounter Summary ---
:1970 Author Organization [facility] [place] [address] Care Team Providers Name Role Phone Karly Riojas APRN Primary Care Provider [phone] Encounter Details Date Type Department Care Team Description 08/14/2016 Telephone General Surgery at [facility] [place] [address] Social History Tobacco Use Types Packs/Day Years Used Date Smoking Tobacco: Never Assessed Sex Assigned at Date Recorded Not on file documented as of this encounter Miscellaneous Notes Telephone Encounter - Ruby Dasilva - 08/14/2016 9:05 AM EDT LMOM for Ms. Munguia to check in with her about her progress in the bariatric surgery program. I told her that we received a referral and letter of support from her PCP and encouraged her to send in her insurance worksheet and other forms to start the program. I told her that she is welcome to call me anytime with questions or concerns. documented in this encounter Plan of Treatment Not on filedocumented as of this encounter Visit Diagnoses Not on filedocumented in this encounter Care Teams Slasher Sawyer Relationship Specialty Start Date End Date Karly Riojas APRN PCP - General Family Medicine 08/10/16 09/29/17 [address] [place] [address] documented as of this encounter
--- OUTSIDE RECORDS SUMMARY | 2022-01-13 19:39 | XMS_ITS | Encounter Summary ---
:1970 [place] [address] Care Team Providers Name Role Phone Karly Riojas APRN Primary Care Provider [phone] Encounter Details Date Type Department Care Team Description 06/07/2017 Telephone General Surgery at [facility] Clementina Casanova APRN [facility] [place] [address] [facility] [address]-FAMILY [phone] [place], [place] [address] (Wo rk) Social History Tobacco Use Types Packs/Day Years Used Date Smoking Tobacco: Never Smokeless Tobacco: Never Sex Assigned at Date Recorded Not on file documented as of this encounter Miscellaneous Notes Telephone Encounter - Clementina Casanova APRN - 06/07/2017 12:16 PM EDT Telephone call to Lilliam to review her labs and get a preferred pharmacy. Will treat her vitamin D deficiency with 50,000iu vitamin D weekly for 6 months. Will keep her on current dose of iron for now as she is having RNY and has a long history of iron deficiency anemia. Will recheck post op as this may improve given she now has a Mirena IUD and previously was treated due to menorrhagia. This was all reviewed with Lilliam. She verbalizes understanding and is in agreement with plan. Questions were answered to patient satisfaction. documented in this encounter Plan of Treatment Not on filedocumented as of this encounter Visit Diagnoses Diagnosis Vitamin D deficiency Unspecified vitamin D deficiency documented in this encounter Care Teams Electronics Technician Apprentice Relationship Specialty Start Date End Date Karly Riojas APRN PCP - General Family Medicine 08/10/16 09/29/17 [address] [place] [address] documented as of this encounter
--- OUTSIDE RECORDS SUMMARY | 2022-01-13 19:39 | XMS_ITS | Encounter Summary ---
:1970 Author Organization [facility] [place] [address] Care Team Providers Name Role Phone Beulah Karlyjana GILLIAM Primary Care Provider [phone] Encounter Details Date Type Department Care Team Description 06/06/2017 Office Visit General Surgery at [facility] Class 2 severe obesity LEIDA De La Torre MD due to excess calories Former[facility] wit [address] DR comorbidity and body [place], [place] GENERAL SURGERY [place] ([place] [address] [place] [address] 37.0 to 37.9 in adult [phone] Social History Tobacco Use Types Packs/Day Years Used Date Smoking Tobacco: Never Smokeless Tobacco: Never Sex Assigned at Date Recorded Not on file documented as of this encounter Progress Notes [facility] MD - 06/06/2017 3:20 PM EDT Lilliam Munguia is a 47 y.o. female who is returns in follow up regarding bariatric surgery. She has been through our Bariatric Surgery Program and has been found eligable for obesity surgery based on NIH criteria. She was previously seen by me on 04/04/17. Since our last meeting, she has undergone an EGD at [facility]. This showed a small hiatal hernia and a mildly irregular Z line. Biopsies were notable for no evidence of Torres's. H. Pylori was negative. She completed her SMA and labs today. Desired procedure: Laparoscopic Kamari en Y gastric bypass - decided due to longer term data, occasional GERD. Program start weight: 248 lbs Current weight/BMI: Wt & BMI By Encounter Date Office Visit from 06/06/2017 in General Surgery at [facility] Clinical Support from 04/04/2017 in GeneralSurgery at [place] Weight 108.4 kg (239 lb) 1 06/06/2017 1152 112.5 kg (248 lb 1.6 oz) 1 04/04/2017 08 BMI 37.43 1 06/06/2017 1152 38.85 1 04/04/2017 0817 Gallbladder status: Intact Extended DVT prophylaxis: Not indicated Discussion of treatment of obesity and of the [facility] Bariatric Surgery Program: Lilliam Munguia is aware that other treatments for obesity are available, ie, dietary, behavior modification, weight loss medications, exercise as well as surgical weight loss methods. The risks and benefits of bariatric surgery, including gastric bypass and sleeve gastrectomy are discussed at every Introduction to the [facility] Bariatric Surgery Program meeting and all Educational Seminars, and were again discussed individually today. Assessment/Plan: Lilliam Munguia. is a 47 y.o.. with morbid obesity with co- morbidities who is a good candidate for laparoscopic kamari en y gastric bypass. The patient is motivated and a well-educatedabout the risks, benefits and alternatives to surgery. We discussed the procedures of laparoscopic sleeve gastrectomy and laparoscopic kamari en y gastric bypass. The patient would like to proceed with a laparoscopic kamari en y gastric bypass, with a sleeve gastrectomy as backup if a bypass couldn't be performed. We discussed the possibility of a hiatal hernia repair, depending on an intraoperative evaluation. We discussed the benefits of surgery as well asthe small but real risks including but not limited to need for open surgery, bleeding, infection, anastomotic leak, DVT and pulmonary embolis, stricture, postoperative reflux and . We discussed the possibility of poor weight loss and the need to make sustained dietary changes in order for the surg tanya to be successful. She understands the fpc risks of vitamin deficiencies, internal hernias and ulcers. She realizes the need for life long follow up with the bariatric surgery program and understands the importance of the preoperative diet in terms of safety and ability to perform the procedure. Consent was signed today. All questions were answered and the patient desires to proceed. Pending: - Preoperative class - Ongoing weight loss encouraged - Given a surgery date All of this 20 minute visit was spent in [id number] counseling and/or coordination of care as detailed in note above. documented in this encounter Plan of Treatment Not on filedocumented as of this encounter Visit Diagnoses Diagnosis Class 2 severe obesity due to excess fanny ories with serious comorbidity and body mass index (BMI) of 37.0 to 37.9 in adult documented in this encounter Care Teams Shipper Relationship Specialty Start Date End Date Karly Riojas APRN PCP - General Family Medicine 08/10/16 09/29/17 [address] [place] [address] documented as of this encounter
--- OUTSIDE RECORDS SUMMARY | 2022-01-13 19:39 | XMS_ITS | Encounter Summary ---
:1970 Author Organization [facility] [place] [address] Care Team Providers Name Role Phone Beulah Karlyjana GILLIAM Primary Care Provider [phone] Encounter Details Date Type Department Care Team Description 04/04/2017 Clinical Support General Surgery at [facility] Aleksandra Luna, [facility] [place] [address] [facility] [phone] GENERAL SURGERY [place] [id number] (Wo rk) Social History Tobacco Use Types Packs/Day Years Used Date Smoking Tobacco: Never Smokeless Tobacco: Never Sex Assigned at Date Recorded Not on file documented as of this encounter Last Filed Vital Signs Vital Sign Reading Time Taken Comments Blood Pressure 155/97 04/04/2017 8:17 AM EST Pulse 108 04/04/2017 8:17 AM EST Temperature 36.6 ??C (97.9 ??F) 04/04/2017 8:17 AM EST Respiratory Rate 18 04/04/2017 8:17 AM EST Oxygen Saturation 100% 04/04/2017 8:17 AM EST Inhaled Oxygen Concentration - - Weight 112.5 kg (248 lb 1.6 oz) 04/04/2017 8:17 AM EST Height 170.2 cm (5' 7) 04/04/2017 8:17 AM EST Body Mass Index 38.86 04/04/2017 8:17 AM EST documented in this encounter Patient Instructions Patient InstructionsAleksandra Luna, RD - 04/04/2017 8:30 AM EST BARIATRIC SURGERY PROGRAM FIRST VISIT Contact information: [facility] Admin coordinator Penelope: [phone] Dietitian: [phone] Surgeons/ nurse practitioner: [phone] Nurse line: [phone] Pending information: 1. Weight loss of 3-5#. Goal: 243-245# Bariatric Surgery Program educational information: ?? Read the Bariatric Surgery Program Educational Handbook thoroughly, highlight important areas to remember. Write down any questions that you may have to discuss at next visit. ?? Bring the Handbook to ALL pre-operative visits. Keep the handbook in a safe place for easy retrieval. Your next visits: All visits take place in the General Surgery Clinic, Multi Purpose Machine Operator Area 4L 1. 2nd visits with dietitian and nurse practitioner ([facility]- Shared Medical Appointment) 2. Pre-op class: to be determined at a later date 3. Bring the questionnaire to your next visit. Complete within 1 day of the visit. Predicted weight loss with surgery is an estimated 30-70% of excess body weight, which would be a goal weight between 185-221#. Nutrition: 1) Practice post-op GB diet recommendations prior to surgery to support post-op success and long-term weight loss: ??? Eat 3 meals daily, spaced about 4-6 hours apart. ??? Take your time when eating meals, at least 20-30 minutes per meal. ??? Avoid soda and limit caffeine consumption. Stop caffeine 2 weeks prior to surgery. ??? Sip 48-64 oz hydrating fluid daily between meals and avoid drinking with meals. ??? Use smaller plates/bowls/utensils for meals and eat smaller portions. ??? Plan meals 1 wk in advance and shop with a list. 2) Start to keep a food journal, especially of frequently eaten foods. (See Education section below for frequently used Smartphone apps.) 3) Continue to work on building your exercise routine. 4) Practice this Meal Format: Protein first at all meals! Only eat until full. Breakfast 1st Protein (15-20 grams) 2nd Fruit (1 piece or ?? cup) 3rd Starch (1 serving) Lunch and Dinner 1st Protein (20 grams) 2nd Non-Starchy Vegetables (no limit, no fat) 3rd Starch (1 serving) 4th Fruit (1 piece or ?? cup) 1 serving of starch = 1 slice toast, ?? Dominican muffin, ?? cup cooked potato, rice, or pasta, 1 small rose or wrap Non starchy vegetables include all those except corn, peas, winter squash, beans, and potatoes Snacks: 1-2 per day if physically hungry - choose a protein or a fruit Surgery date: For patients who have insurers who have a long approval process, your surgery date and pre-operative class will be scheduled after you are approved by your insurer. We cannot predict your OR date in advance of approval. Only the OR cotton tier can provide you with a date. Questions for your doctor, specialist or pharmacist: 4. Ask your doctor about medication suggestions if you currently take medications that are larger than the size of a tylenol. Large pills need to be crushed (if permitted by the drug pasteurizing machine operator) ortaken in liquid form for TWO WEEKS after surgery. Diabetic oral medication often does not need to betaken after surgery) ?? If you take antinflammatory medications or steroid medications for arthritis or asthma, please check with your doctor. These medications will likely need to be held 1 week prior to and at least a few weeks after surgery. For women who take control or hormone medications: these medications must be stopped 1 month before and after surgery. Use alternative forms of control. Education: 1. Continue to read information about bariatric surgery- websites listed in your handbook Also check the ASMBS website: http://asmbs.org/patients 2. Nutrition and Activity apps- Baritastic, My Fitness Pal, Lose It, My Plate 3.[facility] facebook page: [email or web address].facebook.[email or web address] documented in this encounter Progress Notes Aleksandra Luna RD - 04/04/2017 8:30 AM EST Bariatric Surgery Program Initial Nutrition Assessment Lilliam Munguia is being seen today for a preoperative evaluation in anticipation of weight loss surgery. SUBJECTIVE Interest in bariatric surgery: Has been considering bariatric surgery for years. Started dieting in her early 20s - after children. Tired of yo-yo dieting. Motivating Factors for Seeking Weight Loss Surgery: ?? [x] Improved Health ?? [ ] termite helper weight loss ?? [ ] Improved quality of life ?? [ ] Increased activity Research: ?? [x] Reading (Internet, books, etc.) ?? [x] Talking to people who have had weight loss surgery - a coworker and her ex TEO had surgery ?? [x] Attending introductory seminar - 07/27/16 ?? 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 Hobbies: biking, kayaking, hiking, camping, horseback riding, refurbishing furniture Related medical history: Class II obesity, HTN, anxiety, depression Overweight/obese since age: 18 - after Highest weight: 250# in ~2006 - gained weight with her mother's illness Lowest weight: 135# in late teens Dieting History: Type of Diet Wt Lost (lbs.) Wt. Regain (lbs.) Dates Duration Comments STEPHANIE- Mary Torres 4 2016 4 visits 08/13/16, 09/12/16, 10/17/16, 11/19/16 Medifast 70 80 2003 12 months Low wt was 143# Atkins 30 50 2014 18 months Tried 2-3 times over the years; 2014 most successful as paired with exercise WW 10 2002 2 months Went to meetings [employer]/customer service trainer 30 2014 Along w/Atkins; Exercising 5-6 days per week 2 x week workout with assistive technology trainer; Boot Camp 2 x week. NutriSystems 20 20 2006 3 months History of diet pills to lose weight: None. History of disordered eating behaviors such as binge eating/self-induced vomiting/laxative abuse/night eating syndrome: some mindless eating - last time was about a year ago. Hx bulimia for 6 months, 20 years ago. History of excessive exercise to lose weight: No. Contributing Factors to Obesity: ?? [ ] Hx Binge Eating / Eating disorder ?? [x] Large portion sizes ?? [ ] Fast eater ?? [ ] Nighttime eating ?? [x] Emotional eating ?? [ ] Mindless eating ?? [ ] Choosing high calorie foods ?? [x] Preference for concentrated sweets - craves sugar, CHO, chocolate ?? [x] Snacking - sherry. After work and on weekends ?? [ ] Grazing ?? [ ] Meal skipping ?? [x] - after 2nd kept 20-30# on ?? [x] Physical Inactivity ?? [ ] Genes Eating Triggers: ?? [ ] Emotions: ?? [ ] Boredom ?? [x] Stress - currently stressed ?? [ ] Fatigue ?? [ ] Physical Hunger ?? [ ] Eating on a Schedule ?? [x] Other: if trigger foods are around Food Allergies/Intolerances/Preference: ?? [ ] Gluten ?? [ ] Lactose ?? [x] Food sensitivities: cutting back on breads Diarrhea/Constipation: none. Recent Changes in Dietary/Lifestyle Habits: ?? [ ] Smaller portions ?? [ ] 3 meals per day ?? [x] More meal planning - Sundays/ and night will prep for workday and dinner as well. ?? [ ] Eating slower ?? [x] Decreased HS snacking ?? [ ] More fruits, vegetables, and whole grains ?? [ ] Leaner proteins ?? [ ] Decreasing carbohydrates ?? [ ] Lower calorie cooking methods (baking, broiling, grilling, etc.) ?? [x] Nutrition Counseling with RDN ?? [ ] No longer buying tempting foods from grocery store ?? [ ] Cutting out soda ?? [ ] Cutting out concentrated sweets/ decreasing added sugar ?? [x] Increased physical activity - plans to restart work with personal companion ?? Date changes implemented: July 2016 Tracking Intake: Has used MF in the past Typical Daily Intake: Shares responsibility for shopping, planning and cooking. Breakfast Protein Shake OR refrigerator oatmeal OR bowl of cereal w/banana Snack Cottage cheese and fruit OR crx and cheese Lunch chicken w/broccoli OR pork and potato OR salad Snack Yogurt OR school bus monitor OR trail mix Supper Meatballs and rice and green beans Snacks Beverages: unsweetened tea with truvia (brews her own) and water - 24 x 2 and 2 teas per day ETOH: Never Tobacco: none How Often Meals Eaten Away From Home: once per week or less; 6 months ago was 3- 4 x week. Supplements/Vitamins: Mg, fish oil and MVM daily Physical Activity: house cleaning; roller skating with grandchildren on weekends. Summer hiking, biking, camping, kayaking. Psychological Indications: No contraindications to surgery. Evaluation performed by SHAZIA Newman on 09/06/16, 09/28/16 and 11/30/16. Hx abuse - none; Hx hospitalizations - none Vision at 2 years post-op: regular exercise routine, continue build on healthy eating routine and making it a habit Goal weight: Under 200# to start and would like to get to 180#. OBJECTIVE: Weight History: Date Weight (lbs) HT BMI Comments ~2005 250# Highest Weight (per pt) 08/06/16 247.6# Initial program weight 04/04/17 248.1# 67 38.8 1st pre-op visit [facility] % Surgery 1 month post-op 4 months post-op [place] Body Weight (based on BMI of 25): 159# Excess Weight: 89# 30-70% Excess Weight Loss: 185-221# ; 50% Excess Weight Loss: 203# SUMMARY: Lilliam Munguia has been referred for nutrition evaluation and diet instruction in anticipation ofbariatric surgery. Previous conservative attempts at weight loss through dieting have been unsuccessful over the ocean transportation intermediary. Predicted weight loss with surgery is an estimated 30-70% of excess body weight. Advised pt that bariatric surgery is a tool, not a solution; and ultimately, weight loss will be achieved through propereating and exercise habits. She showed good understanding of the concepts discussed. We discussed the No Weight Gain Policy. Pt has a documented weight on 08/06/16 of 247.6#. However herweight 2 months prior was 239#. Pt states weight gain was due to stopping regular exercise due to becoming a caregiver for her mother. We agreed a 3-5# weight loss would be appropriate prior to moving forward. NUTRITION DIAGNOSIS: - Obesity related to history of physical inactivity and over consumption as evidenced by BMI of 38.8. PENDING INFORMATION: 1. Weight loss of 3-5#. Goal: 243-245#. PLAN: 1) Patient to practice post-op GB diet recommendations prior to surgery to support post-op success and long-term weight loss: ??? Eat 3 meals daily, spaced about 4-6 hours apart. ??? Take your time when eating meals, at least 20-30 minutes per meal. ??? Avoid soda and limit caffeine consumption. ??? Sip 48-64 oz hydrating fluid daily between meals and avoid drinking with meals. ??? Use smaller plates/bowls/utensils for meals and eat smaller portions. ??? Plan meals 1 wk in advance and shop with a list. 2) Start to keep a food journal. 3) Continue to work on building exercise routine. 4) We reviewed the No Weight Gain Policy. 5) Patient to attend two pre-op educational classes prior to surgery. Information given to patient: 1. [facility] Bariatric Surgery Education Handbook, a 102 page document (revision May 2011) which contains extensive information regarding pre and post- operative nutrition guidelines including: preop diet,Diet stages I-IV, hydration recommendations, protein guidelines, dumping syndrome, food intolerances, vitamin and mineral supplementation as well as a list of books and online bariatric resources. documented in this encounter Plan of Treatment Not on filedocumented as of this encounter Visit Diagnoses Not on filedocumented in this encounter Care Teams Director Export Relationship Specialty Start Date End Date Karly Riojas APRN PCP - General Family Medicine 08/10/16 09/29/17 [address] [place] [address] documented as of this encounter
--- OUTSIDE RECORDS SUMMARY | 2022-01-13 19:39 | XMS_ITS | Encounter Summary ---
:1970 Author Organization [facility] [place] [address] Care Team Providers Name Role Phone Karly Riojas APRN Primary Care Provider [phone] Reason for Visit Reason Comments Patient Education Bariatric Surgery Program pr eoperative class Encounter Details Date Type Department Care Team Description 06/13/2017 Office Visit General Surgery at [place] [facility] APRN [facility] [place] [address] Encounter for pre-bariatric surgery coun seling and education; [facility] Analy Jimenez RD Essential hypertension; [facility] Adult BMI 37.0-37.9 kg/[place] [id number] Social History Tobacco Use Types Packs/Day Years Used Date Smoking Tobacco: Never Smokeless Tobacco: Never Sex Assigned at Date Recorded Not on file documented as of this encounter Patient Instructions Patient InstructionsSia Hill - 06/13/2017 8:00 AM EDT BARIATRIC SURGERY DISCHARGE INFORMATION BARIATRIC SUPPORT TEAM CONTACT NUMBERS (Mon-Fri 8am - 5pm): General Surgery and Bariatric Surgery [phone] Bariatric Surgeons: King Grimes and Melody [phone] Director Of Revenue: [phone] Dietitians: [phone] Outside of regular business hours, including weekends and holidays: Ask for General Surgery resident joint terminal attack controller [phone] FOR EMERGENCIES: CALL 911 (trouble breathing, chest pain, rapid heart rate >120 beats per minute or severe abdominal pain) CALL THE BARIATRIC TEAM FOR ANY OF THE FOLLOWING: ?? Signs and symptoms of infection such as: - Redness or swelling or new significant drainage from wounds - Drainage or bleeding from wounds - Fever over 101 degrees Fahrenheit, or shaking chills ?? Persistent diarrhea or vomiting or inability to keep down food or fluids down in a 24 hour period. ?? Signs / symptoms of a blood clot: leg swelling, redness, or pain, shortness of breath ?? Problems with urination or constipation, worsening abdominal pain not controlled with pain medication ?? Any concerns you may have after your surgery Follow up Information: You have a surgical followup appointment with The Bariatric Surgery Team in 3 weeks at the General Surgery Outpatient Clinic ([address], [facility]). Future Appointments Date Time Provider Department Center 08/07/2017 12:00 PM Clementina Casanova APRN [facility] 11/08/2017 10:00 AM Clementina Casanova APRN [facility] BATHING AND WOUND CARE: ?? You may shower 2 days after surgery ?? Wash incisions with unscented mild soap ?? Rinse, pat dry and leave open to air. ?? Remove Steri-strips if they don't fall off by 5-7 days after discharge. Pat dry if they become wet. ?? Do not soak wound (no baths, no swimmings) for 3 weeks after surgery ACTIVITY, LIFTING AND DRIVING: ?? For laparoscopic surgery: there are no lifting restrictions. Lift when you feel comfortable. ?? Do not drive for 2 weeks. After [address] when comfortable and not taking narcotic pain medicine. DIET: ?? Follow Stage II diet for two weeks. ?? Keep a log of your intake: Daily goals are: 48-64 ounces of fluids and 60 grams of protein. MEDICATIONS: ?? FINANCIAL EXAMINER YOUR DISCHARGE MEDICATIONS FROM THE [facility] SHORTLY BEFORE OR AFTER DISCHARGE, DUE TO POSSIBLE MEDICATION ALLERGIES ?? For 2 WEEKS: LARGE pills (bigger than the size of a calcium pill) must be crushed, Capsules must be opened onto applesauce or pudding. ?? Pills smaller than the size of a calcium DO NOT need to be crushed. ?? Not all medications can be crushed. Check with your pharmacist if unsure. BLOOD CLOT PREVENTION: ?? You do not meet scoring criteria to be discharged on medication to prevent blood clots. Be active, walk at least 4 times a day and do blood clot prevention exercises in your handbook on page 82. ULCER PREVENTION: ?? IMPORTANT - you must continue to take omeprazole 20 mg daily for 3 MONTHS after surgery. This is taken to prevent ulcers at your surgical sites internally, even if you do not have heartburn. ?? Omeprazole capsules contain enteric-coated, delayed-release granules. Because these granules should not be chewed or crushed, you must OPEN the capsules, sprinkle the enteric-coated granules on applesauce or yogurt. Alternatively, you may take the granules with apple juice, or swallow them quickly with water. Follow any of these methods with additional water to ensure that you have swallowed the granules completely. ?? If your insurer does not cover omeprazole, or similar medications such as pantoprazole, you must purchase these medications over the counter. ?? You will continue this after the initial 3 month course if you have heartburn or reflux GALLSTONE PREVENTION: ?? If you have had your gallbladder REMOVED - you do not need this medication. ?? If you have your gallbladder after Bariatric Surgery - you must take start taking Ursodiol (Actigall) 300 mg twice a day to prevent gallstones. You may START this medication 2 weeks after surgery for a duration of 6 months. After that, you may stop this medication unless otherwise directed. PAIN MEDICATION: ?? Your pain should lessen with each day out from surgery. Over the next couple of days you should be requiring less narcotic medication to control your pain, and eventually you will not need any at all. ?? Take the medication exactly as it is prescribed and make sure to read all instructions that come with the medication. Take only as needed. ?? You may adjunct your pain control using scheduled Tylenol (acetaminophen), use as directed. Do NOT use NSAIDS (ibuprofen, Motrin, Aleve, Toradol, aspirin, etc.) to adjunct your pain control. ?? Opioids can slow reaction time, cause drowsiness or cloud judgement. You MUST NOT DRIVE while taking narcotic pain medication. ?? Taking more than the prescribed amount of narcotic or combining with alcohol or drugs can cause you to stop breathing, leading to coma, brain damage or . ?? Using this drug may cause addiction. While addiction is more common in people with a personal or family history of addiction, it can occur in anyone. ?? Opioids are at risk of being diverted by anyone with access to your home. Opioids should be stored in a safe and secure place, such as a locked cabinet or safe. ?? Unused opioids should be disposed of appropriately. They may be returned to a take-back location,or mixed with a small amount of water and poured over an undesirable waste such as used coffee grounds or cat litter. ?? Opioid pain medications can cause significant constipation. You should use a stool softener such as Miralax to address this. OTHER MEANS FOR PAIN RELIEF: Other than medications. ?? Learn deep breathing exercises or meditation to help you relax ?? Reduce stress ?? Your body produces natural endorphins from exercise which can help reduce pain. Even walking is considered exercise. Talk with your provider/surgical team about what exercises are appropriate for you to perform. ?? You may use a heating pad or apply ice to the painful area unless specifically discouraged by thesurgical team. ?? Find ways to distract yourself from the pain. MEDICATIONS TO AVOID FOR TWO MONTHS AFTER SURGERY: ?? Discontinue anti-inflammatory non-steroidal medications, such as Advil, Aleve, etc. Refer to Medications that may increase the risk of bleeding in handbook. ?? If you do take aspirin for your heart or to prevent strokes, continue as prescribed. PATIENTS WITH HIGH BLOOD PRESSURE: ?? Monitor your blood pressure regularly. ?? If you feel dizzy and have been drinking 48-64 ounces of fluid, have your blood pressure checked. ?? If your blood pressure is low, call your primary care provider. Keep a log to bring to your PCP appointments. PATIENTS ON ANTI-DEPRESSANT OR MENTAL HEALTH MEDICATIONS: ?? Do not stop or decrease your medications unless advised. ?? Ongoing counseling is encouraged. VITAMIN AND MINERAL SUPPLEMENTATION: Vitamin B12 500 mcg pill daily Complete multivitamin w/ minerals Chewable, one pill twice daily. After 2 weeks may take regular vitamin pills. Calcium Calcium citrate 600 mg with vitamin D 400 units twice a day between meals. Iron with vitamin C Take iron as instructed per Handbook - (only if you have anemia, iron deficiencyor regular menses) FOLLOW-UP CARE: ?? It is IMPORTANT to see your Primary Care Physician or PCP within 10-14 days after surgery for wound check and vital signs check, and to discuss specific medical management as referenced above. ?? You should follow up with your surgeon and dietitian at 3-4 weeks after surgery. ?? You will follow up with the dietitian and Bariatric nurse practitioner at 4, 12, 18, and 24 months, then yearly for life. documented in this encounter Progress Notes Sia Hill - 06/13/2017 8:00 AM EDT Lilliam attended a comprehensive two hour group pre-operative class today, which included discussion of pre and post operative instructions included in the [facility] Bariatric Surgery Program Education Handbook. The one hour nutrition component of the class was taught by the BSP RD. Updates since last visit: she discontinued magnesium OR date: 07/11/17 RNY gastric bypass Individualized plan of care: ?? Close blood pressure monitoring post discharge Recommendations for post discharge VTE prophylaxis (unless change in condition during hospitalization that would contraindicate treatment): Post discharge enoxaparin not indicated Prescription x1 provided at today's visit: (faxed to pharmacy) - Ursodiol 300 mg BID x 6 months, to start at 2 weeks post-operatively for cholelithiasis preventionfaxed to local pharmacy - She will continue omeprazole 20 mg once daily x 3 months, to start upon discharge for ulcer prevention. OTC Vitamin and mineral supplements required post discharge: ?? Multivitamin with minerals twice daily ?? Vitamin B12 500 mcg by mouth once daily ?? Calcium citrate 600 mg with Vitamin D 400 units twice daily ?? Iron with Vitamin C, 50-66 mg once daily (take iron with vitamin C 550 mg to help with absorption) ONLY for patients with iron deficiency, anemia or menstruating females Bariatric Surgery Program Pathway and review of status with the requirements of the Bariatric Surgery Program 1. Education: She previously attended a Introduction to the [facility] Bariatric Surgery Program seminar,a two hour meeting that provides a program overview as well as expectations. The [facility] Bariatric Surgery Program Educational seminar requirement (3 seminars with post-testing) has been met. The BSP Educational Handbook was provided at visit #1. 2. Pre-operative programmatic evaluations have been done, as noted in previous pathway review. 3. Bariatric Surgery Program evaluations with RD and CODING AUDITOR have taken place, as noted in previous pathway documentation 4. Weight requirements have been achieved and documented. 5. All pre-operative requirements were achieved. 6. Surgical consultation has taken place, and she has been approved to proceed with surgery by surgeon and insurer. Next steps in pathway: ?? During hospitalization for bariatric surgery, a standard bariatric surgery order set is followed. ?? Routine post-operative follow up with labwork is done at months 1,4,12,18 and 24, yearly thereafter, and PRN. High risk patients are followed more frequently. Some of the topics reviewed during group discussion today included: ?? day of surgery and post-op routine care/ locations: Admissions/SDP/PACU/05/28/ [place] units ?? medications that increase the risk of bleeding including NSAIDs, ASA and Plavix to be avoided perguidelines pre and post-operatively ?? DVT/VTE prevention and signs of DVT/PE. ?? Inpatient management for VTE prevention: venodynes, ambulation, Enoxaparin 40 units BID during inpatient stay. ?? Indications for extended Enoxaparin 10 days post discharge: A. patients with BMI >60 or prior VTE OR B. 2 or more of the following: age >50, BMI >50, male gender, sleep apnea, varicose veins, venous insufficiency, history of oral contraceptive or hormone or post-menopausal hormone replacement use within 30 days of surgery, and recent smoking ?? guidelines for patients treated with oral anticoagulants per Thrombosis Clinic ?? diabetes and hypertension monitoring post-operatively ?? signs and symptoms of infection as well as emergency signs and symptoms ?? common post-operative complaints ?? management of sleep apnea during hospitalization and post operatively. The importance of post-operative follow-up with Sleep Center after weight loss was stressed. ?? recommendations for psychiatric medications: should continue uninterrupted after surgery ?? activity post surgery/ return to work recommendations ?? pre-operative and post-operative dietary recommendations ?? post-op vitamin and mineral supplementation ?? routine BSP post-operative follow-up: 3 weeks. 4, 12,18, 24 months and yearly for LIFE ?? routine Primary Care post-operative follow up: at 10-14 days after surgery to monitor chronic health problems such as diabetes and hypertension, since the requirement for antihypertensive and diabetic medications may decrease or be discontinued A preliminary copy of the discharge instructions was provided, which is also available in the patient handbook. Lilliam appeared to have a good understanding of the information presented, and asked appropriate questions. She satisfactorily completed the post-test administered, and achieved a grade of 100%. All herquestions were answered. Time spent in individual counseling and coordination of care: 5 minutes Time spent in group counselin minutes Analy Jimenez - 06/13/2017 8:00 AM EDT Lilliam attended a comprehensive two hour pre-operative class today, which included discussion of pre and post operative instructions included in the [facility] Bariatric Surgery Program Education Handbook. One hour of today's group visit was spent in review of dietary and post op vitamin and mineral supplementation. Some of the topics reviewed today included: ??? pre-operative and post-operative dietary recommendations ??? post-op vitamin and mineral supplementation Lilliam appeared to have a good understanding of the information presented, and asked appropriate questions. All her questions were answered. Jaquan Mcdonald RPH - 06/13/2017 8:00 AM EDT Patient's medications reviewed by pharmacist, current and planned post-op medication discussed with patient. Potential concerns address with patient and ELECTROCARDIOGRAPH TECHNICIAN. The following recommendations were made bythe pharmacist: ? -discussed blood pressure medications with patient and need to closely follow blood pressures, especially post-op -discussed mental health medication such as buPROPion, discussed need to know her body and to followup with primary care if she notices any changes in mood post-op All of patient's questions answered to their satisfaction. Patient given pharmacist business card, encouraged to follow up with any other questions or concerns that may arise. documented in this encounter Plan of Treatment Not on filedocumented as of this encounter Visit Diagnoses Diagnosis Encounter for pre-bariatric surgery coun seling and education Essential hypertension Unspecified essential hypertension Adult BMI 37.0-37.9 kg/sq m Body Mass Index 37.0-37.9, adult documented in this encounter Care Teams Crew Chief Relationship Specialty Start Date End Date Karly Riojas APRN PCP - General Family Medicine 08/10/16 09/29/17 [address] [place] [address] documented as of this encounter
--- OUTSIDE RECORDS SUMMARY | 2022-01-13 19:39 | XMS_ITS | Encounter Summary ---
:1970 Author Organization [facility] [place] [address] Care Team Providers Name Role Phone Karly Riojas APRN Primary Care Provider [phone] Encounter Details Date Type Department Care Team Description 03/06/2017 Telephone General Surgery at [facility] [place] [place] [address] Social History Tobacco Use Types Packs/Day Years Used Date Smoking Tobacco: Never Assessed Sex Assigned at Date Recorded Not on file documented as of this encounter Miscellaneous Notes Telephone Encounter - Ruby Dasilva - 03/06/2017 8:39 AM EST Patient's cell phone number is not in service. I tried her home number and left a message to let herknow that I got her packet and asking her to give me a call to check in documented in this encounter Plan of Treatment Not on filedocumented as of this encounter Visit Diagnoses Not on filedocumented in this encounter Care Teams Long Term Relationship Specialty Start Date End Date Karly Riojas APRN PCP - General Family Medicine 08/10/16 09/29/17 [address] [place] [address] documented as of this encounter
--- OUTSIDE RECORDS SUMMARY | 2022-01-13 19:39 | XMS_ITS | Encounter Summary ---
:1970 Author Organization [place] [address] Care Team Providers Name Role Phone Karly Riojas APRN Primary Care Provider [phone] Encounter Details Date Type Department Care Team Description 07/15/2017 Telephone General Surgery at [facility] Maria Sh[place], [place] [address] Social History Tobacco Use Types Packs/Day Years Used Date Smoking Tobacco: Never Smokeless Tobacco: Never Alcohol Use Standard Drinks/Week Comments No 0 (1 standard drink = 0.6 oz pure alcoho l) Sex Assigned at Date Recorded Not on file documented as of this encounter Miscellaneous Notes Telephone Encounter - Maria Shanks, RN - 07/15/2017 3:09 PM EDT Images from the original note were not included. S/P sleeve gastrectomy, RNY gastric bypass on: Sydney Monique MD General Surgery []Hide copied text []Hover for attribution information [facility] Operative Note ?? Patient Name: Lilliam Munguia : [id number] MR#: [id number] ?? Case Date: 07/11/2017 ?? Surgeon: Surgeon(s) and Role: * Sydney Monique MD - Primary * Mayra Griggs MD - Fellow-Diagnostic ?? Preoperative diagnosis: MORBID OBESITY ?? Postoperative diagnosis: MORBID OBESITY ?? Procedure(s) (LRB): @LAPAROSCOPIC GASTROPLASTY, (WRVU 29.4) (N/A) ENDOSCOPY, UPPER GI, DIAGNOSTIC, WITH OR WITHOUT SPECIMENS (N/A) ? Findings: Normal liver, Negative leak test ?? Anesthesia: General ?? Estimated Blood Loss: 7 cc ?? Specimens removed during surgery: None ?? Drains: None ?? Surgical Closure: Primary Closure Discharged on PO Day #:2 Issues during hospitalization: none Today's phone discussion took place with patient, Maria PaniaguaMercy Munguia was called via phone for post discharge follow up. Diet: stage:11 Fluids Protein Other: Nausea/ vomiting: Urination: adequate, no difficulties Bowels: Activity level: Pain level, analgesia requirements: Any significant changes to comorbidites/ medications (ex DM, HTN): Medications: Currently crushing or taking liquid form of medications, as appropriate: Taking ulcer prevention medication: omeprazole 20 mg po Q day Taking Ursodiol (if appropriate):yes will start VTE prophylaxis: enoxaparin: NA Follow up: PCP appointment: at one month, as scheduled with surgeon and RD Patient questions: Pt was not at home I left a message for her to call us. Recommendations: documented in this encounter Plan of Treatment Not on filedocumented as of this encounter Visit Diagnoses Not on filedocumented in this encounter Care Teams Registration Representative Relationship Specialty Start Date End Date Karly Riojas APRN PCP - General Family Medicine 08/10/16 09/29/17 [address] [place] [address] documented as of this encounter
--- OUTSIDE RECORDS SUMMARY | 2022-01-13 19:39 | XMS_ITS | Encounter Summary ---
:1970 Author Organization [facility] [place] [address] Care Team Providers Name Role Phone Karly Riojas APRN Primary Care Provider Encounter Details Date Type Department Care Team Description 05/10/2017 Hospital [place] [address] Social History Tobacco Use Types Packs/Day Years Used Date Smoking Tobacco: Never Smokeless Tobacco: Never Sex Assigned at Date Recorded Not on file documented as of this encounter Medications at Time of Discharge Medication Sig Dispensed Refills Start Date End Date multivitamin (THERAGRAN) Take 2 tablets by 0 Tablet mouth daily. omeprazole (PRILOSEC) 20 Take 1 capsule by 30 capsule 5 09/201704/04/2018 mg Capsule, Delayed mouth daily. Release(E.C.) losartan (COZAAR) 50 mg Take 50 mg by mouth 0 11/19/2018 Tablet 2 times daily. buPROPion (WELLBUTRIN XL) 0 03/16/2017 08/07/2017 300 mg Tablet Extended Release 24 hr ferrous gluconate 0 01/15/2017 018 (FERGON) 324 mg (38 mg iron) Tablet Magnesium Oxide-Mg AA Take 1 capsule by 0 06/13/2017 Chelate (MAGNESIUM) 300 mouth. mg Capsule fish oil-omega-3 fatty Take 1 capsule by 0 06/06/2017 acids 1,000 mg Capsule mouth daily. cetirizine (ZYRTEC) 10 mg Take 10 mg by mouth 0 11/08/2017 Tablet as needed for Allergies. albuterol 90 Inhale 2 puffs into 0 03/2017 mcg/actuation HFA Aerosol the lungs every 4 Inhaler hours as needed for Wheezing. Use with spacer documented as of this encounter Plan of Treatment Not on filedocumented as of this encounter Procedures Procedure Name Priority Date/Time Associated Diagnosis Comme nts SURGICAL PATHOLOGY Routine 05/10/2017 10:27 AM Misti do for this REPORT EDT procedure are i n the results section. documented in this encounter Results Surgical Pathology Report (05/10/2017 10:27 AM EDT) Component Value Ref Test Analysis Performed At [facility] Range Method Time Signature Surgical [id number] ? Location: [facility] Pathology [place] Report The signing pathologist has (i) examined the relevant preparation(s) for the [facility] specimen(s) and (ii) rendered or confirmed the diagnosis(es) . HOSPITAL LABORATORY . ?Surgic al Pathology DIAGNOSIS A - Gastric, ??polypectomy: Gastric fundic gland polyps B - Gastric antrum, ??biopsy: Gastric antral mucosa with r eactive gastropathy, no H. pylori-like organism seen on H &E stain C - Distal esophagus, ?? biopsy: Chronic cardioesophagitis wi th intraepithelial eosinophils in the esophagus squamous epithelium, consistent with reflux. ??No intestinal metapla macie is seen Electronically signed by: ??Wale Boudreaux MD, I Verified: ??05/14/2017 ?Pathologist Performed at: ??-[facility] Dept. of Pathology, [place], [place] CLINICAL INFORMATION Specimen Submitted: A - Gastric polyps B - Gastric antrum - ? H pylori C - Distal esophagus - ? Barretts Clinical History: Upper endoscopy, GERD Clinical Diagnosis: A - polyps B -? H. Pylori C -? Torres 's Referring Identifier: ??[id number] SPECIMEN PROCESSING A - Labeled/Fixative: Gastric polyp, formalin. Quantity/Size: Five, 0.2-0.4 cm. Tissue Description: Soft thibodeaux tissue. Sections/Processing: (T1) B - Labeled/Fixative: Gastric antrum, formalin. Quantity/Size: Two, 0.2-0.4 cm. Tissue Description: Soft thibodeaux tissue. Sections/Processing: (T1) C - Labeled/Fixative: Distal esophagus, formalin. Quantity/Size: Single, 0.3 cm. Tissue Description: Soft thibodeaux-white tissue. Sections/Processing: (T1) ??pranay Specimen (Source) Anatomical Collection Method Collection Time Re ceived Time Location / / Volume Laterality 05/10/2017 10:27 AM EDT Resulting Agency Comment Spec In Lab / APD Sydney Monique MD PATHOLOGY/CYTOLOGY ORDERABLE S Performing Organization Address City/State/[place] [address] documented in this encounter Visit Diagnoses Not on filedocumented in this encounter Care Teams Senior Solutions Consultant Relationship Specialty Start Date End Date Karly Riojas APRN PCP - General Family Medicine 08/10/16 09/29/17 [address] [place] [address] documented as of this encounter
--- OUTSIDE RECORDS SUMMARY | 2022-01-13 19:39 | XMS_ITS | Encounter Summary ---
:1970 Author Organization [facility] [place] [address] Care Team Providers Name Role Phone Adelia Esquivel APRN Primary Care Provider [phone] Encounter Details Date Type Department Care Team Description 04/24/2017 Abstract Savanna Nguyen Conversion Apd Conversion, Flowsheet Results Provider, [place] [id number] Social History Tobacco Use Types Packs/Day Years Used Date Smoking Tobacco: Never Smokeless Tobacco: Never Sex Assigned at Date Recorded Not on file documented as of this encounter Last Filed Vital Signs Vital Sign Reading Time Taken Comments Blood Pressure - - Pulse - - Temperature - - Respiratory Rate - - Oxygen Saturation - - Inhaled Oxygen - - Concentration Weight 112 kg (246 lb 14.6 04/24/2017 10:46 Sourced fro m APD oz) AM EST Conversion Height 170 cm (5' 6.93) 04/24/2017 10:46 Sourced from APD AM EST Conversion Body Mass Index 38.75 04/24/2017 10:46 AM EST documented in this encounter Plan of Treatment Not on filedocumented as of this encounter Visit Diagnoses Not on filedocumented in this encounter Care Teams Life Skills Specialist Relationship Specialty Start Date End Date Adelia Esquivel APRN PCP - General Family Medicine 09/30/17 [address] [place] [address] documented as of this encounter
--- OUTSIDE RECORDS SUMMARY | 2022-01-13 19:39 | XMS_ITS | Encounter Summary ---
:1970 [place] [address] Care Team Providers Name Role Phone Beulah Karlyjana GILLIAM Primary Care Provider [phone] Reason for Visit Auth/Cert Specialty Diagnoses / Procedures Referred By Contact Refer red To Contact Diagnoses MORBID OBESITY Procedures PRO LAP GASTRIC BYPASS/MED-EN-Y PRO UPPER GI ENDOSCOPY, DIAGNOSTIC @LAPAROSCOPIC GASTROPLASTY, (WRVU 29.4) ENDOSCOPY, UPPER GI, DIAGNOSTIC, WITH OR WITHOUT SPECIMENS Referral ID Status Reason Start Date Expiration Date Visits Requ ested Visits Authorized [id number] 1 1 Encounter Details Date Type Department Care Team Description 07/11/2017 Surgery Main Operating Room Sydney Monique, @ LAPAROSCOPIC [facility] GASTROPLASTY W/ [facility] MED-EN-Y [facility] (WRVU 29.4) [facility] [place] [address] [place] [address] [phone] (Wo rk) Social History Tobacco Use Types Packs/Day Years Used Date Smoking Tobacco: Never Smokeless Tobacco: Never Alcohol Use Standard Drinks/Week Comments No 0 (1 standard drink = 0.6 oz pure alcoho l) Sex Assigned at Date Recorded Not on file documented as of this encounter Last Filed Vital Signs Vital Sign Reading Time Taken Comments Blood Pressure 172/108 07/13/2017 8:30 RN aware AM EDT Pulse 108 07/11/2017 5:30 Pt was tachycard ic PM EDT pre-operatively Temperature 36.5 ??C (97.7 ??F) 07/13/2017 8:30 AM EDT Respiratory Rate 16 07/13/2017 8:30 AM EDT Oxygen Saturation 96% 07/13/2017 8:30 AM EDT Inhaled Oxygen - - Concentration Weight 105.2 kg (232 lb) 07/11/2017 9:35 AM EDT Height 170.2 cm (5' 7) 07/11/2017 9:35 AM EDT Body Mass Index 36.34 07/11/2017 9:35 AM EDT documented in this encounter Discharge Summaries Mayra Griggs MD - 07/13/2017 8:47 AM EDT General Surgery Discharge Summary Patient Name: Lilliam Munguia Patient Age: 47 y.o. Birthdate: 1970 Admit date: 07/11/2017 Discharge date and time: 07/13/2017 8:47 AM Attending Physician: Sydney Monique MD Primary Diagnosis: Morbid Obesity Secondary Diagnosis: Asthma; HTN Operations and Procedures: Laparoscopic Med-en-Y Gastric Bypass with Intraoperative Upper Endoscopy Surgeons: Surgeon(s) and Role: * Sydney Monique MD - Primary * Mayra Griggs MD - Fellow- No qualified resident was available History of Present Illness: Lilliam Munguia is a 47 y.o. female who presented regarding bariatric surgery. She has been through our Bariatric Surgery Program and has been found eligible for obesity surgery based on NIH criteria. She has undergone an EGD at [facility]. This showed a small hiatal hernia and a mildly irregular Z line. Biopsies were notable for no evidence of Torres's. H. Pylori was negative. Desired procedure is a Laparoscopic Med en Y gastric bypass - decided due to longer term data, occasional GERD. She stated that she has struggled with obesity since having children. The patient has tried multipleweight loss measures without sustainable success. Factors that she identifies as contributing to herobesity include genetics, overconsumption and inactivity. She seeks bariatric surgery for health reasons. ?? Hospital Course: Lilliam Munguia is a 47 y.o. female who was admitted on 07/11/2017 for laparoscopic Med-en-Y Gastric bypass with intraoperative upper endosocpy. The operative course was uneventful. On POD#1 she was started on a Gastric bypass stage I diet, and when she tolerated that she was advanced to a Gastric bypass stage II diet. She was changed to oral pain medications and the DROP FORGER was discontinued on POD# 1. She was [...] was discharged to home in stable condition. Vital Signs: Last value Range last 24hrs Temperature Temp: 36.5 ??C (97.7 ??F) Temp: [36.5 ??C (97.7 ??F)-37.5 ??C (99.5 ??F)] Heart Rate Heart Rate: (!) 108 (Pt was tachycardic pre-operatively) Heart Rate: -- Blood Pressure BP: (!) 172/108 (RN aware) BP: (162-176)/(104-110) Respiratory Rate Resp: 16 Resp: [16-18] SpO2 SpO2: 96 % SpO2: [95 %-97 %] Pertinent Lab Data: Recent Labs 05/19/18 0632 /18/18 0446 WBC 9.8* 14.4* HGB 14.5 13.8 HCT 43.0 41.5 PLATELET 272 281 Recent Labs 05/19/18 0632 05/18/18 0446 NA 139 138 K 3.7 4.0 CL 101 101 CO2 24 23 BUN 5* 8 CREATININE 0.55* 0.68* GLUCOSE 96 -- CALCIUM 8.6 -- MAGNESIUM 0.79 0.80 PHOS 2.3* 3.6 Physical Exam: General: NAD, resting comfortably, pleasant, conversant HEENT: PERRL, anicteric sclerae CVS: RRR Pulm: CTAB Abd: soft, appropriately tender, non-distended. 6 port sites without evidence of edema, erythema or ecchymosis. No drainage or s/s of infection. : no problems with voiding Skin: warm, dry Ext: no c/c/e Neuro: CN 2-12 grossly intact, nonfocal,moving all four extremities spontaneously Imaging: No results found. Condition at discharge: Stable Mental Status: awake and alert, oriented x 3 Medications: Your Medications New Medications Dose Details acetaminophen 325 mg Tab Commonly known as: TYLENOL Take 2 tablets by mouth every 4 hours. 650 mg Quantity: 30 tablet Refills: 1 ondansetron 4 mg Tbdl Commonly known as: ZOFRAN-ODT Take 1 tablet by mouth every 8 hours as needed for Nausea. 4 mg Quantity: 20 tablet Refills: 0 oxyCODONE 5 mg/5 mL Soln Commonly known as: ROXICODONE Take 5 mLs by mouth every 4 hours as needed for Pain. 5 mg Quantity: 50 mL Refills: 0 Continued medications, unchanged Dose Details albuterol 90 mcg/actuation Hfaa Inhale 2 puffs into the lungs every 4 hours as needed for Wheezing. Use with spacer 2 puff Refills: 0 buPROPion 300 mg Tablet Extended Release 24 hr Commonly known as: WELLBUTRIN XL Refills: 0 cetirizine 10 mg Tab Commonly known as: ZyrTEC Take 10 mg by mouth as needed for Allergies. 10 mg Refills: 0 ergocalciferol 50,000 unit Cap Commonly known as: ERGOCALCIFEROL Take 1 capsule by mouth once a week for 24 doses. 13985 Units Quantity: 12 capsule Refills: 1 levonorgestrel 20 mcg/24 hr (5 years) Iud Commonly known as: MIRENA 1 each by Intrauterine route once. 1 each Refills: 0 losartan 50 mg Tab Commonly known as: COZAAR Take 50 mg by mouth 2 times daily. 50 mg Refills: 0 multivitamin Tab Commonly known as: THERAGRAN Take 2 tablets by mouth daily. 2 tablet Refills: 0 omeprazole 20 mg Cpdr Commonly known as: PriLOSEC Take 1 capsule by mouth daily. 20 mg Quantity: 30 capsule Refills: 5 ursodiol 300 mg Cap Commonly known as: ACTIGALL Take 1 capsule by mouth 2 times daily for 180 days. Start at 2 weeks post op on 07/25. Take until 01/21 to prevent gallstones. Start taking on: 07/25/2017 300 mg Quantity: 180 tablet Refills: 1 STOPPED Medications ferrous gluconate 324 mg (38 mg iron) Tab Commonly known as: FERGON Disposition: Home Allergies: No Known Allergies Outpatient Services/Studies: No discharge procedures on file. Scheduled Appointments: Future Appointments and Orders Future Appointments Provider Department Dept Phone 08/07/2017 12:00 PM Aleksandra Luna LD; Clementina Casanova APRN [facility] [place] [phone] 11/08/2017 10:00 AM Aleksandra Luna LD; Clementina Casanova APRN [facility] [place] [phone] Instructions Given to Patient at Discharge: BARIATRIC SURGERY DISCHARGE INFORMATION BARIATRIC SUPPORT TEAM CONTACT NUMBERS (Mon-Fri 8am - 5pm): General Surgery and Bariatric Surgery [phone] Bariatric Surgeons: Doctors. King Monique and Melody [phone] Music Leader: [phone] Dietitians: [phone] Outside of regular business hours, including weekends and holidays: Ask for General Surgery resident industrial refrigeration mechanic [phone] FOR EMERGENCIES: CALL 911 (trouble breathing, chest [...] weeks at the General Surgery Outpatient Clinic (Security Systems Administrator 4, [facility]). Future Appointments Date Time Provider Department Center [...] Steri-strips if they don't fall off by 7-10 days after discharge. Pat dry if they [...] and 60 grams of protein. MEDICATIONS: ?? For 2 WEEKS: LARGE pills (bigger [...] exercises in your handbook on page 82. IF YOU ARE TREATED FOR OBSTRUCTIVE SLEEP APNEA: ?? IMPORTANT - you MUST use your CPAP/ BIPAP after surgery while sleeping at night and also when napping during the day because discharge medications can decrease your breathing. ?? Follow up with the Sleep Center if pressure seems to be too high. ULCER PREVENTION: ?? IMPORTANT - you must take acid suppressing medication for 3 MONTHS after surgery. This is taken to prevent ulcers at your surgical sites internally, even if you do not have heartburn. ?? omeprazole 20 mg daily (or another medication you may currently take for heartburn/reflux that has been discussed with Bariatric Team) ?? Omeprazole capsules contain enteric-coated, delayed-release granules. [...] or to prevent strokes, continue as prescribed. WOMEN OF CHILDBEARING AGE: ?? Fertility may increase with weight loss. Avoid for 18-24 months after bariatric surgery. ?? Condoms alone are not acceptable as a form of control. Do not take control pills for the first month after surgery. PATIENTS WITH HIGH BLOOD PRESSURE: ?? Monitor [...] weeks may take regular vitamin pills. Calcium Does not need to be taken as long as you are using Fusion multivitamins Iron with vitamin C Take iron as [...] and 24 months, then yearly for life. Signed: Mayra Carranza MD 07/13/2017 Primary Care Physician: Karly Riojas APRN [address] / [facility] [id number] documented in this encounter Discharge Instructions Patient InstructionsKoller Dillon, Mayra S, MD - 07/13/2017 8:46 AM EDT BARIATRIC SURGERY DISCHARGE INFORMATION BARIATRIC SUPPORT TEAM CONTACT NUMBERS (Mon-Fri 8am - 5pm): General Surgery and Bariatric Surgery [phone] Bariatric Surgeons: King Grimes and Melody [phone] Music Leader: [phone] Dietitians: [phone] Outside of regular business hours, including weekends and holidays: Ask for General Surgery resident industrial refrigeration mechanic [phone] FOR EMERGENCIES: CALL 911 (trouble breathing, chest [...] weeks at the General Surgery Outpatient Clinic (Security Systems Administrator 4L, [facility]). Future Appointments Date Time Provider Department Center [...] Steri-strips if they don't fall off by 7-10 days after discharge. Pat dry if they [...] and 60 grams of protein. MEDICATIONS: ?? For 2 WEEKS: LARGE pills (bigger [...] exercises in your handbook on page 82. IF YOU ARE TREATED FOR OBSTRUCTIVE SLEEP APNEA: ?? IMPORTANT - you MUST use your CPAP/ BIPAP after surgery while sleeping at night and also when napping during the day because discharge medications can decrease your breathing. ?? Follow up with the Sleep Center if pressure seems to be too high. ULCER PREVENTION: ?? IMPORTANT - you must take acid suppressing medication for 3 MONTHS after surgery. This is taken to prevent ulcers at your surgical sites internally, even if you do not have heartburn. ?? omeprazole 20 mg daily (or another medication you may currently take for heartburn/reflux that has been discussed with Bariatric Team) ?? Omeprazole capsules contain enteric-coated, delayed-release granules. [...] or to prevent strokes, continue as prescribed. WOMEN OF CHILDBEARING AGE: ?? Fertility may increase with weight loss. Avoid for 18-24 months after bariatric surgery. ?? Condoms alone are not acceptable as a form of control. Do not take control pills for the first month after surgery. MANAGEMENT OF DIABETES MELLITUS AFTER BARIATRIC SURGERY: ?? IMPORTANT to check blood sugars four times a day, fasting blood surgars, 2 hours after meals and as needed when feeling unwell. For blood sugar less than 150, do not restart diabetes medications. ?? If the Diabetes Team saw you during your hospital stay, they have listed specific recommendationselsewhere in your discharge paperwork. Please refer to their specific diabetes care recommendations. ?? Patients on oral diabetic medication: If blood sugar is over 200 on more than 3 checks, call yourprimary care physician or diabetic specialist for recommendations. For patients on insulin and oral diabetic medications: If blood sugar is over 200 on 3 checks, call your primary care doctor or diabetic specialist for recommendations. ?? Follow up with primary care provider or front end alignment specialist in 1-2 weeks in order to adjust your changing diabetes treatment requirements. PATIENTS WITH HIGH BLOOD PRESSURE: ?? Monitor your blood pressure regularly. ?? If you feel dizzy and have been drinking 48-64 ounces of fluid, have your blood pressure checked. ?? If your blood pressure is low, call your primary care provider. Keep a log to bring to your PCP appointments. PATIENTS WHO TAKE DIURETICS (WATER PILLS): ?? Check with your surgical team prior to discharge for instructions. In general, this medication isstopped after surgery, as you are at risk for dehydration after Bariatric Surgery. ?? Monitor yourself for any swelling of legs or gain of water weight after medication is stopped. Call your primary care doctor if you notice this. PATIENTS ON ANTI-DEPRESSANT OR MENTAL HEALTH MEDICATIONS: [...] yearly for life. documented in this encounter Medications at Time of Discharge Medication Sig Dispensed Refills Start Date End Date levonorgestrel (MIRENA) 1 each by 0 20 mcg/24 hr (5 years) Intrauterine route IUD once. multivitamin Take 2 tablets by 0 (THERAGRAN) Tablet mouth daily. acetaminophen (TYLENOL) Take 2 tablets by 30 tablet 1 07/1308/07/2017 325 mg Tablet mouth every 4 hours. oxyCODONE (ROXICODONE) Take 5 mLs by mouth 50 mL 0 06/2508/07/2017 5 mg/5 mL Solution every 4 hours as needed for Pain. ondansetron Take 1 tablet by 20 tablet 0 07/12/2017 018 (ZOFRAN-ODT) 4 mg mouth every 8 hours Tablet, Rapid Dissolve as needed for Nausea. ursodiol (ACTIGALL) 300 Take 1 capsule by 180 tablet 1 07/2501/21/2018 mg Capsule mouth 2 times daily for 180 days. Start at 2 weeks post op on 07/25. Take until 01/21 to prevent gallstones. ergocalciferol Take 1 capsule by 12 capsule 1 06/07/2017 (ERGOCALCIFEROL) 50,000 mouth once a week for unit 24 doses. CapsuleIndications: Vitamin D deficiency omeprazole (PRILOSEC) Take 1 capsule by 30 capsule 5 018 04/04/2018 20 mg Capsule, Delayed mouth daily. Release(E.C.) losartan (COZAAR) 50 mg Take 50 mg by mouth 2 0 0 03/14/2017 11/19/2018 Tablet times daily. buPROPion (WELLBUTRIN 0 03/16/2017 XL) 300 mg Tablet Extended Release 24 hr cetirizine (ZYRTEC) 10 Take 10 mg by mouth 0 11/08/2017 mg Tablet as needed for Allergies. albuterol 90 Inhale 2 puffs into 0 03/2017 mcg/actuation HFA the lungs every 4 Aerosol Inhaler hours as needed for Wheezing. Use with spacer documented as of this encounter Progress Notes Blanquita Hernandez PA - 07/12/2017 11:13 AM EDT Minimally Invasive Surgery Inpatient Progress Note ID: Lilliam Munguia is a 47 y.o. female s/p laparoscopic Med-en-Y gastric bypass with intraoperative upper endosocpy. Now 1 Day Post-Op. 24hr events: ?? No acute events Subjective: She admits to feeling good this am. She states she did have a mild amount of nausea lastnight, but none since. She tolerated most of her breakfast, and has not had any nausea or increase in pain. She states her pain is controlled. She has walked around the floor. She is not having any problems with voiding. She currently denies cp/sob. O: Last value Range last 24hrs Temperature Temp: 36.9 ??C (98.4 ??F) Temp: [36.5 ??C (97.7 ??F)-37.8 ??C (100 ??F)] Heart Rate Heart Rate: (!) 108 (Pt was tachycardic pre-operatively) Heart Rate: [85-108] Blood Pressure BP: (!) 162/110 (RN aware) BP: (121-167)/(64-110) Respiratory Rate Resp: 16 Resp: [12-18] SpO2 SpO2: 96 % SpO2: [93 %-98 %] 07/11 0701 - 07/12 0700 In: 1260 [I.V.:1260] Out: 800 [Urine:800] Physical Exam: General: NAD, resting comfortably, pleasant, conversant HEENT: PERRL, anicteric sclerae CVS: RRR Pulm: CTAB Abd: soft, appropriately tender, non-distended. 6 port sites without evidence of edema, erythema or ecchymosis. No drainage or s/s of infection. : no problems with voiding Skin: warm, dry Ext: no c/c/e Neuro: non-focal, moving all four extremities spontaneously Labs: Recent Labs 07/12/17 0446 WBC 14.4* HGB 13.8 HCT 41.5 PLATELET 281 Recent Labs 07/12/17 0446 NA 138 K 4.0 CL 101 CO2 23 BUN 8 CREATININE 0.68* MAGNESIUM 0.80 PHOS 3.6 Microbiology: None New Studies: None ASSESSMENT: Lilliam Munguia is a 47 y.o. female s/p laparoscopic Med-en-Y gastric bypass with intraoperative upper endosocpy. Now 1 Day Post-Op Progressing post-operatively without any concerns. PLAN: NEURO: Pain control with IV tylenol and DROP FORGER Dilaudid; transition to elixir Tylenol and Oxycodone. Continue home Wellbutrin. CV: No active issues. Continue home Cozaar. PULM: encourage frequent ambulation and IS use GI: Diet Gastric Bypass diet Stage II-Full : no problems with voiding; monitor UOP closely FEK: LR 105cc/hr until tolerating adequate po intake; monitor lytes and replace prn ID: no indication of active infection HEME: no indication of active bleeding ENDO: no active issues PROPHYLAXIS: Lovenox for DVT (inpatient use only); Protonix for gastric DISPO: Floor status, Full Code Plan for discharge later today or tomorrow based on progress. SHEILA SALAS 07/12/2017 Therese Leonard RN - 07/11/2017 6:40 PM EDT Patient arrived to the unit from PACU around 1830, alert and oriented, VSS but with elevated blood pressure, satting well on 3L NC O2 (weaned to 1L and potentially room air tonight). LR infusing through right PIV @ 105mL/hr with Dilaudid DROP FORGER @ 0.2/7/4. Abdominal lap sites (5) with band aids, hypoactive bowel sounds, intermittent nausea. Bladder scan 386mL, is out of bed attempting to void at this time. Reports numbness in right hand.. SCD's removed. Patient oriented to room and call lopez system. Call lopez within reach. at bedside. Abbe Rojas MD - 07/11/2017 5:57 PM EDT General Surgery Post-Operative Note Lilliam Munguia is a 47 y.o. female who is s/p laparoscopic RYGB. Patient states that pain is well controlled. Denies cp/sob, n/v/d. Temp: [36.5 ??C (97.7 ??F)] Heart Rate: [85-108] Resp: [12-18] BP: (121-167)/(64-98) SpO2: [93 %-98 %] Heart Rate from SPO2: -- Intake/Output Summary (Last 24 hours) at 07/11/17 1757 Last data filed at 07/11/17 1323 Gross per 24 hour Intake 1000 ml Output 0 ml Net 1000 ml No results for input(s): WBC, HGB, HCT, PLATELET, PT, INR, PTT in the last 72 hours. No results for input(s): NA, K, CL, CO2, BUN, CREATININE, GLUCOSE, CALCIUM, MAGNESIUM, PHOS in the last 72 hours. Physical Examination Gen: Alert, arousable and cooperative Cardio: RRR. No additional sounds or murmurs heard Pulm:NVBS heard in all areas. ABD: soft, non tender and not distended. Incision sites are c, d and i : yet to void Assessment and plan: - -progressing well post-operatively -continue current management - monitor for any acute hemodynamic changes - NPO hold meds Abbe Rojas M.D. PGY2 - Surgery 3792 documented in this encounter H&P Notes Sydney Monique MD - 07/11/2017 11:29 AM EDT Please see clinic note dated 04/04/17 and 06/06/17 for further historical details, copied below. The patient's history and physical exam have been reviewed and completed. There has been no interval changefrom that of the pre-operative history and physical exam. All preoperative questions were answered. Plan to proceed with lap med en y gastric bypass. [facility] Bariatric Surgery Evaluation ? Reason for consultation: Lilliam is a 47 y.o. year-old female referred by Karly Riojas APRN forconsultation for consideration of surgical treatment of obesity. ?? Her preferred procedure: Undecided ?? Prior bariatric surgery evaluations: None ? BARIATRIC SURGERY PROGRAM PATHWAY ?? Review of progress with the requirements of the Bariatric Surgery Program: ?? 1. Education: She has attended a Introduction to the [facility] Bariatric Surgery Program seminar, a comprehensive two hour meeting that provides a program overview, education on bariatric surgeries offeredat [facility], risks and benefits, as well as patient expectations and follow up. [facility] Bariatric Surgery Program Educational seminars viewed 2. Pre-operative programmatic evaluations: PCP evaluation and letter of support to proceed with surgery, BSP labwork, and psychological evaluation. 3. Bariatric Surgery Program evaluations with RD today. 4. Program start weight: 239/BMI 38.6 WT at visit #1: Wt & BMI By Encounter Date ? Clinical Support from 04/04/2017 in [facility] [place] ?? Weight ?? 112.5 kg (248 lb 1.6 oz) 1 04/04/2017816 ?? BMI ?? 38.85 1 04/04/2017 08 ?? 5. Gallbladder status: intact, not studied. 6. VTE risk assessment: extended VTE prophylaxis is not indicated post bariatric surgery discharge 7. Next steps in pathway: Additional testing/ consultations as determined as needed to be determined at today's visit. ? History of present illness: She states that she has struggled with obesity since having children. The patient has tried multipleweight loss measures without sustainable success. Factors that she identifies as contributing to herobesity include: genetics, overconsumption and inactivity. She seeks bariatric surgery for health reasons. ?? Other motivating factors for seeking surgery for bariatric surgery: Wants to be healthier, would like to come off BP meds ?? Her goals of surgery: Would like to be down to 160 lbs ?? She denies binge eating, night eating disorder, self-induced vomiting, laxative or diuretic use or excessive exercise to lose weight. ?? History of GERD: If eats late, has not happened recently. Max 1-2 times a week, Tums helps. She alsoreports a constant scratchy throat and throat clearing, not improved with inhaler or Zyrtec ?? Sleep: Reports adequate sleep. STOP-BANG 1 ?? Stress: Reports no significant current stressors. Not now ?? Exercise: Not currently ?? Data reviewed: PCP notes, lab data, nutrition notes, psychological evaluation ?? Functional status: Is ambulation limited most or all of the time? no Tolerance: she can walk a mile and climb a flight of stairs Karnofsky performance status scale: 80- normal activity with effort, some signs or symptoms of disease ADLs: able to carry on without difficulty- independent ?? Use of assistive devices: Dyspnea with routine activity: denies ?? Anesthesia history (per patient): denies untoward events ?? Lactose/ Food/ Wheat/ Latex allergy/sensitivity: denies ?? Diagnostic screenin. Lab data. A1c 5.5 08/06/16 ?? 2. Psychological evaluation done by SHAZIA Newman 11/30/16: no contraindication to bariatric surgery from a psychological perspective. ? MBSAQIP Preoperative Risk Assessment (negative if left blank): ?? General [] Diabetes mellitus [] Non-insulin [] Insulin [] Current smoker within 1 year Functional health status [x] Independent [] Partially dependent [] Totally dependent [] Unknown ?? Pulmonary [] COPD (Severe) [] Oxygen Dependent [] History of pulmonary embolism [] Obstructive sleep apnea requiring CPAP/BiPAP ?? Gastrointestinal [+/-] GERD requiring medication within 30 days prior to surgery -->Doing PPI trial for possible silent GERD ?? Musculoskeletal [] The patient's ambulation is limited most or all of the time ?? Cardiac [] History of myocardial infarction [] Previous PCI/PTCA [] Previous cardiac surgery [x] Hypertension requiring medication # of anti-hypertensive meds: 1 Hyperlipidemia requiring meds ?? Vascular [] Vein thrombosis requiring therapy [] Venous stasis [] IVC filter IVC filter timing [] placed in anticipation of procedure [] IVC filter preexisting [] Unknown ?? Renal [] Currently requiring or on dialysis [] Renal insufficiency ?? Nutritional/Immune/Oncologyy/Other [] Steroid/Immunosuppressant use for chronic condition [] Therapeutic anticoagulation [] Previous obesity surgery/foregut surgery [] Previous organ transplant ?? Patient Active Problem List ?? Diagnosis ??? Depression ??? Anxiety ??? Essential hypertension ? Overview Note: ? On losartan ??? Gastroesophageal reflux ??? Anemia, iron deficiency ? Overview Note: ? On Iron ??? Obesity, Class II, BMI 35-39.9, with comorbidity ? Overview Note: ? Bariatric Surgery Program ?? - Attended Introduction to the [facility] Bariatric Surgery Program seminar, a comprehensive two hour meeting that provides a program overview, education on bariatric surgeries offered at [facility], risks and benefits, as well as patient expectations and follow up: 07/27/16 [facility] BSP Educational seminars viewed: 03/05/17 Grades on post-testin% x 1; 100% x 2 The [facility] Educational Handbook is provided at preoperative visit #1. - Pre-operative programmatic evaluations required: PCP evaluation and letter of support to proceed with surgery, labwork and psychological evaluation - Bariatric Surgery Program evaluations: and STEPHANIE on 04/04/17 - Weight history: 238# on 11/07/11; 193# on 09/12/12; 213# on 05/13/14; 239.4# on 06/20/16; 247.6# on 08/06/16; 249# on 11/19/16 - Gallbladder status: Intact - Insurer specific requirements: 4 consecutive months dietary counseling, letter of medical clearance from PCP - BSP Team meeting discussion: na ?? Patient insight into causes of obesity: onset of obesity at age 18. Attributes weight gain to emotional eating, inactivity and over consumption ? Past??Surgical??History Past Surgical History: Procedure Laterality Date ??? BREAST REDUCTION SURGERY ? Current Outpatient Prescriptions: ??? losartan (COZAAR) 50 mg Tablet, , Disp: , Rfl: 0 ??? buPROPion (WELLBUTRIN XL) 300 mg Tablet Extended Release 24 hr, , Disp: , Rfl: 0 ??? ferrous gluconate (FERGON) 324 mg (38 mg iron) Tablet, , Disp: , Rfl: 0 ??? multivitamin (THERAGRAN) Tablet, Take 2 tablets by mouth daily., Disp: , Rfl: ??? Magnesium Oxide-Mg AA Chelate (MAGNESIUM) 300 mg Capsule, Take 1 capsule by mouth., Disp: , Rfl: ??? fish oil-omega-3 fatty acids 1,000 mg Capsule, Take 1 capsule by mouth daily., Disp: , Rfl: ??? cetirizine (ZYRTEC) 10 mg Tablet, Take 10 mg by mouth as needed for Allergies., Disp: , Rfl: ??? albuterol 90 mcg/actuation HFA Aerosol Inhaler, Inhale 2 puffs into the lungs every 4 hours as needed for Wheezing. Use with spacer, Disp: , Rfl: ??? omeprazole (PRILOSEC) 20 mg Capsule, Delayed Release(E.C.), Take 1 capsule by mouth daily., Disp: 30 capsule, Rfl: 5 ?? Allergies Allergen Reactions ??? Dairy Aid [Lactase] Itching ? Family??History No family history on file. ?? Social??History Social History ?? Social History ??? Marital status: ? Spouse name: N/A ??? Number of children: N/A ??? Years of education: N/A ?? Occupational History ??? Not on file. ?? Social History Main Topics ??? Smoking status: Never Smoker ??? Smokeless tobacco: Never Used ??? Alcohol use Not on file ??? Drug use: Not on file ??? Sexual activity: Not on file ?? Other Topics Concern ??? Not on file ?? 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 Has two special needs children. No etoh or tobacco ? Review of Systems (negative if left blank): Constitutional: [ ] fatigue EENT [ ] wears corrective lens [ ] vision or hearing problems Neurologic: [ ] paresthesias [ ] dizziness [ ] chronic headaches Cardiovascular: [ ] history of chest pain, squeezing, pressure [ ] syncope [ ] murmur [ ] palpitations Respiratory: [ ] shortness of breath [ ] wheezing [ ] symptoms of sleep apnea GI: [? ] GERD [ ] dysphagia [ ] early satiety [ ] abdominal pain [ ] hernia [ ] prior CT scan abdomen [ ] ED visit for abdominal pain []nausea/vomiting [ ] blood in stool [ ] chronic diarrhea [ ] frequent constipation : [ ] incontinence [ ] hematuria [] history of renal calculi FIRST ASSISTANT MANAGER: [ ] LMP: [ ] menorrhagia [ ] menopause Musculoskeletal [ ] myalgia/arthralgias: Extremities: [ ] Varicose veins [ ] telangiectasias [] edema Skin: [ ] skinfold rashes [ ] tattoos Endocrine: [ ] PCOS [ ] thyroid disease Heme/Lymph: [ ] excessive bruising [ ] lymphadenopathy [ ] transfusion history [ ] blood donor in past year [ ] iron deficiency history Allergic/ Immun: [ ] use of steroid/ immunosuppressant for chronic condition [ ] Latex, food or medication allergies: as per allergy list Psychiatric [x ] depression [x] anxiety [] panic attacks [ ] history of suicide attempt [ ] symptomsof bipolar disorder [] addictions- gambling, excessive shopping, prolonged Internet use [ ] History of abuse [ ] psychiatric hospitalization [ ] rehab admission Other: [ ] smoker within 1 year of surgery [ ] current smoker [ ] anticoagulation ? Bariatric Surgery VTE Risk Assessment Score ?? Patients will be considered to be at high risk if they have one or more of the following: ? Previous VTE or BMI >/= 60 kg/m2 Or two or more of the following: ? Age > 50 BMI >/= 50 kg/m2 Male sex Recent tobacco use Obstructive sleep apnea Venous insufficiency/ varicose veins OCP or HRT within 30 days of surgery Total: ?? extended VTE prophylaxis is not indicated post bariatric surgery discharge Patients are advised to stop HRT and OCP/ DMPA 1 month prior to surgery and hold for 1 month post op, and use control during this time if appropriate. All patients who take coumadin/ anti-10A inhibitors preoperatively are referred to the Thrombosis Clinic for recommendations. ?? Physical exam: Vital signs: There were no vitals filed for this visit. Wt & BMI By Encounter Date ? Clinical Support from 04/04/2017 in General Surgery at [place] ?? Weight ?? 112.5 kg (248 lb 1.6 oz) 1 04/04/2017816 ?? BMI ?? 38.85 1 04/04/2017816 ?? Neuro: Non-focal Psych: Pleasant, conversant, normal affect, cognition and mood. Behavior:[ ] defensive [] hostile [] expressive [] quiet [] monopolizing [] argumentative [x] insightful [] insightless [ ] fidgety [x ] motivated [ ] apathetic [ ] preoccupied [ ] negativistic [ ] disruptive [ ] attentive Mood: [x ] stable [ ] labile [ ] depressed [ ] happy [ ] anxious [ ] hypomanic [ ] intense [ ] angry [ ] worrisome [ ] flat [ ] detached [ ] fearful [ ] sad ?? ENT: neck supple with normal ROM Lungs: CTA bilaterally without wheezing. Heart: RRR, no murmur appreciated. Abdomen: Obese, soft, non- tender Prior incisions: None Hernias: None Extremities: no lower extremity edema Skin: No areas of skin breakdown. Obesity distribution: gyneoid ?? Discussion of treatment of obesity and of the [facility] Bariatric Surgery Program: Ms.. Munguia is aware that other treatments for obesity are available, ie, dietary, behavior modification, weight loss medications, exercise as well as surgical weight loss methods. The risks and benefits of bariatric surgery, including gastric bypass and sleeve gastrectomy are discussed at every Int roduction to the [facility] Bariatric Surgery Program meeting and all Educational Seminars, and were againdiscussed individually today. ?? Assessment/ Plan: 47 y.o. year old female with Morbid obesity with established obesity-related chronic disease including hypertension, GERD, anxiety disorder, moderate limitations in activities of daily living and impairment of well-being. ?? She has had failure to sustain weight loss by medical management and meets the criteria proposed by the NIH Consensus Guidelines for surgical treatment of severe obesity and the AACE, TOS, ASMBS Clinical Practice Guidelines for the Perioperative Nutritional, Metabolic and Non-surgical Support of the Bariatric Surgery Patient 2013 Update. She is aware that there are non-surgical methods to achieve weight loss. ?? After review of her medical record, history and physical exam, I find her to be a good candidate forbariatric surgery. She is interested in a undecided. ?? She has will be given a follow up appointment to further discuss the risks and benefits of bariatricsurgery, and will be scheduled for the educational components of the bariatric surgery program. She has had an opportunity to have all her questions answered and is in agreement with the plan of care. She was encouraged to call with any questions or concerns. ?? In regards to her frequent scratchy throat/throat clearing, discussed that this could be from reflux, and will trial a PPI. ? Pending: -EGD given intermittent heartburn - to be scheduled at [facility] -Above start weight, discussed 3-5# weight loss - Educational classes - Final meeting with surgeon to confirm procedure, and review risks/benefits - CBC and CMP within 3 months of surgery, per [facility] accredited bariatric center guidelines --> to be done at time of SMA - Ongoing weight loss encouraged documented in this encounter Miscellaneous Notes Plan of Care - Cinthya Pickens RN - 07/13/2017 10:05 AM EDT Patient discharged to home without services. Reviewed after visit summary with patient. Patient aware of when and why to notify MD. Patient had no questions regarding discharge teaching. Patient aware of follow up appointment. Prescriptions received. IVs DC'd. Patient left to family vehicle at approxim ately 10:00. Plan of Care - Nathalia Hilton RN - 07/13/2017 2:31 AM EDT Problem: Patient Care Overview Goal: Plan of Care Review Outcome: Ongoing (Interventions Implemented as Appropriate) 07/12/1722707/12/172047 Coping/Psychosocial Plan Of Care Reviewed With -- patient Plan of Care Review Progress improving -- OUTCOME EVALUATION NOTE: OUTCOME SUMMARY: Patient has had a good night. She complained of pain times 2 and received pain medication with positive effect. Patient complained of an on going cough which she normally takes allergy medication for at home and received IV benadryl at that time for the congestion with good effect. Patient has been encouraged drink fluids throughout the shift. PLAN MOVING FORWARD: Encourage ambulation, encourage fluids INDIVIDUALIZED FALL PREVENTION INTERVENTIONS: Patient-specific fall risk factors per assessment: [current deficits]: Patient is at moderate risk for falls related to narcotic use Assistance [level of assistance required for transfers and ambulation]: Indapendent Supervision [direct monitoring required during toileting and ADLs]: Indapendent Surveillance [continuous indirect monitoring]: Purposeful rounding and call lopez within reach. Patient-specific fall prevention interventions for sensory deficits provided, if applicable: [X] No CPG GOAL OUTCOME EVALUATION: Goal: Individualization & Mutuality Outcome: Ongoing (Interventions Implemented as Appropriate) 07/11/171814 Mutuality/Individual Preferences What Anxieties, Fears or Concerns Do You Have About Your Health or Care? none What Questions Do You Have About Your Health or Care? none What Information Would Help Us Give You More Personalized Care? none Goal: Fall Prevention-Safe Patient Handling Outcome: Ongoing (Interventions Implemented as Appropriate) 07/12/1722707/12/172047 Restraint Interventions Safety Promotion/Fall Prevention -- activity supervised;fall prevention program maintained;muscle strengthening facilitated;nonskid shoes/slippers when out of bed;safety round/check completed Activity Activity Type -- activity encouraged Activity Assistance Provided -- independent Assistive Device Utilized -- cane Daily Care Interventions Self-Care Promotion independence encouraged -- Hernandez Fall Risk History of Falling -- 0 Secondary Diagnosis -- 15 Ambulatory Aids -- 0 Intravenous Therapy/Heparin/Saline Lock -- 20 Gait/Transferring -- 0 Mental Status -- 0 Score -- 35 OTHER Hernandez Fall Risk -- Med Positioning Body Position -- independent Goal: Infection Control Outcome: Ongoing (Interventions Implemented as Appropriate) 07/12/172047 Safety Interventions Isolation Precautions standard precautions maintained Coping Strategies Supportive Measures active listening utilized;positive reinforcement provided;self-care encouraged Goal: Discharge Needs Assessment Outcome: Ongoing (Interventions Implemented as Appropriate) 07/11/17 2100 07/12/1722707/13/17223 Discharge Needs Assessment Concerns To Be Addressed -- no discharge needs identified -- Readmission Within The Last 30 Days -- no previous admission in last 30 days -- Provider Choice List(s) Given -- no -- Equipment Needed After Discharge -- none -- Discharge Disposition -- -- still a patient Current Health Outpatient/Agency/Support Group Needs -- clinic(s) (specify) -- Anticipated Changes Related to Illness -- none -- Activity/Self Care Review of Systems Equipment Currently Used at Home -- none -- Living Environment Transportation Available family or friend will provide -- -- Goal: Interdisciplinary Rounds/Family Conf Outcome: Ongoing (Interventions Implemented as Appropriate) 07/12/17227 Interdisciplinary Rounds/Family Conf Participants case worker;nursing;physician Plan of Care - Therese Leonard RN - 07/12/2017 5:11 PM EDT Problem: Patient Care Overview Goal: Plan of Care Review Outcome: Ongoing (Interventions Implemented as Appropriate) 07/12/1722707/12/17 0849 Coping/Psychosocial Plan Of Care Reviewed With -- patient Plan of Care Review Progress improving -- OUTCOME EVALUATION NOTE: OUTCOME SUMMARY: DROP FORGER D/C'd later in the morning. Liquid Oxy and Tylenol ordered. Liquid Tylenol changed to tablets - apparently the liquid irritated her throat. Diet advanced to gastric bypass stage 2 (full liquids). She has been doing ok with the current diet, consuming approximately 50% of meals. PO intake has been slow, approximately 600mL for this day shift. She is objectively tired, but has ambulated in the hallway independently. Bowel sounds faint, denies nausea, abdminal lap sites with band aids, C/D/I. Miralax given this morning. IS teaching done. IV fluids continue. PLAN MOVING FORWARD: Pain control. Encourage and provide positive reinforcement with nutritional intake. Encourage ambulation. INDIVIDUALIZED FALL PREVENTION INTERVENTIONS: Patient-specific fall risk factors per assessment: [current deficits]: Recent surgery, tethering wires, treatment with narcotics for pain management, generalized weakness, unfamiliar environment. Assistance [level of assistance required for transfers and ambulation]: Independent. Supervision [direct monitoring required during toileting and ADLs]: Eye's on. Surveillance [continuous indirect monitoring]: Environmental monitoring, purposeful rounding, rings call lopez appropriately. Patient-specific fall prevention interventions for sensory deficits provided, if applicable: Light adjusted for tasks and safety, non-skid slippers on when out of bed. CPG GOAL OUTCOME EVALUATION: Initial Assessments - Khalif Mcmahon MSW - 07/12/2017 9:18 AM EDT Office of Care Management Initial Assessment RANJITH Angel reviewed record and discussed patient with Care Team. Source of Information:Patient, Chart, Treatment Team, Introduced self/reviewed role; services accepted. Reason for Hospitalization: Reason for Admission as Stated by Patient: gastric bypass History reviewed. No pertinent past medical history. Hospitalizations Within the Past 30 Days: None Anticipated Length Of Stay (If known): Expected Length of Hospitalization: 2-3 days Current Decision-Making Capacity: A&Ox4 Advance Care Planning: None in eDH Current Coping/Education/Information Needs: none Current Functional Ability: One person assist. Functional Status Prior to Admission: Independant Home Environment: [address] single level living Social & Family Supports/Community Resources: , 3 adult children, friends Behavioral Health History: anxiety, depression- were managed by meds Substance Use/Abuse: denies smoking , alcohol, and illicits Other Pertinent/Service Specific Information: none Health/Prescription Coverage: Primary Insurance: [employer] Secondary Insurance: N/A Prescription Coverage: yes [facility]erred [facility]acy: [facility] Primary Care Provider: Karly Riojas APRN [phone] Patient/Caregiver Goals of Treatment: weight loss and BP management Potential Needs for Transition of Care: Rehab/SNF: na Home Health: na DME: na Dialysis: na Community Resources: available Transportation: yes Anticipated Barriers to Discharge/Special Considerations: none Assessment: Well grounded woman that appears to be handling surgery well Plan: likely home with follow up. A member of the Care Management team will continue to monitor progress, follow for continuity of care and assist with transition of care planning. RANJITH Angel Pager: [phone] Plan of Care - George Mcfarland RN - 07/12/2017 2:36 AM EDT Problem: Patient Care Overview Goal: Plan of Care Review Outcome: Ongoing (Interventions Implemented as Appropriate) 07/12/17227 Coping/Psychosocial Plan Of Care Reviewed With patient Plan of Care Review Progress improving OUTCOME EVALUATION NOTE: OUTCOME SUMMARY: Nilda had a good night sleep.Pt Alert and oriented.RA. Pt is sinus tachy and elevated BP. Notified paid intern. Pt c/o pain to back. Pain managed by DROP FORGER dilaudid.Pt is up with assist to toilet .Voids adequately. Will continue monitor pt. PLAN MOVING FORWARD: Pain management, Advance diet and encourage ambulation. INDIVIDUALIZED FALL PREVENTION INTERVENTIONS: Patient-specific fall risk factors per assessment: [current deficits]: Pain and weakness. Assistance [level of assistance required for transfers and ambulation]: One person assist. Supervision [direct monitoring required during toileting and ADLs]: Hands on. Surveillance [continuous indirect monitoring]: Purposeful rounding, call lights within reach, lightsadjusted. Patient-specific fall prevention interventions for sensory deficits provided, if applicable: [X] N/A CPG GOAL OUTCOME EVALUATION: Ongoing. Goal: Fall Prevention-Safe Patient Handling Outcome: Ongoing (Interventions Implemented as Appropriate) 07/12/17227 Restraint Interventions Safety Promotion/Fall Prevention activity supervised Activity Activity Type activity adjusted per tolerance Activity Assistance Provided assistance, 1 person Daily Care Interventions Self-Care Promotion independence encouraged Hernandez Fall Risk History of Falling 0 Secondary Diagnosis 15 Ambulatory Aids 0 Intravenous Therapy/Heparin/Saline Lock 20 Gait/Transferring 0 Mental Status 0 Score 35 Goal: Infection Control Outcome: Ongoing (Interventions Implemented as Appropriate) 07/12/17227 Safety Interventions Isolation Precautions standard precautions maintained Coping Strategies Supportive Measures active listening utilized;self-care encouraged Goal: Discharge Needs Assessment Outcome: Ongoing (Interventions Implemented as Appropriate) 07/12/17227 Discharge Needs Assessment Concerns To Be Addressed no discharge needs identified Readmission Within The Last 30 Days no previous admission in last 30 days Provider Choice List(s) Given no Equipment Needed After Discharge none Current Health Outpatient/Agency/Support Group Needs clinic(s) (specify) Anticipated Changes Related to Illness none Activity/Self Care Review of Systems Equipment Currently Used at Home none Goal: Interdisciplinary Rounds/Family Conf Outcome: Ongoing (Interventions Implemented as Appropriate) 07/12/17227 Interdisciplinary Rounds/Family Conf Participants case worker;nursing;physician Op Note - Sydney Monique MD - 07/11/2017 2:32 PM EDT [facility] Operative Note Patient Name: Lilliam Munguia : [id number] MR#: [id number] Case Date: 07/11/2017 Surgeon: Surgeon(s) and Role: * Sydney Monique MD - Primary * Mayra Griggs MD - Fellow-Diagnostic Preoperative diagnosis: MORBID OBESITY Postoperative diagnosis: MORBID OBESITY Procedure(s) (LRB): @LAPAROSCOPIC GASTROPLASTY, (WRVU 29.4) (N/A) ENDOSCOPY, UPPER GI, DIAGNOSTIC, WITH OR WITHOUT SPECIMENS (N/A) Findings: Normal liver, Negative leak test Anesthesia: General Estimated Blood Loss: 7 cc Specimens removed during surgery: None Drains: None Surgical Closure: Primary Closure - closure of ALL tissue levels during the original surgery regardless of wires, wickes, drains, or other devices extruding through the incision Disposition: awakened from anesthesia, extubated and taken to the recovery room in a stable condition, having suffered no apparent untoward event. Condition: doing well without problems (Please see the Surgical Encounter Summary for any Implant and Specimen details pertinent to this patient.) HPI/Surgical Indications: HPI/Indications for procedure: This 47 y.o. female presented to the Bariatric Program with a history of weight-related problems including significant weight-related comorbidities. She meets the NIH criteria for gastric bypass. The risks and benefits of the procedure were explained and she chose to undergo this procedure laparoscopically. ?? Description of procedure: ?? The patient was brought back to the operating room and placed in supine position. IV antibiotics were infused and pneumoboots were placed. She received Lovenox in the preop holding area. Under general anesthesia and endotracheal intubation, the patient was prepped and draped in the supine position. After injection with 0.25% marcaine, a small incision was made approximately 15 cm below the xiphoid from the left of midline. The abdomen was then entered using the optiview trocar system using an 11-mm port. The abdomen was then insufflated to 15 mm Hg without difficulty. ?? A 45-degree telescope was inserted, and under direct vision, two 5-mm ports were placed in the left upper quadrant forming the first arm of a V with the scope at the apex. A 5-mm port was placed approximately 15-cm along the right costal margin, through which a liver retractor was placed and used to elevate the left lobe of the liver, thus exposing the hiatal region. This was fixed in good position using the mechanical arm. A 5-mm port was placed approximately 10 cm along the right costal margin and a 12- mm port was placed approximately 4 cm below this. ?? A small window was made along the vasculature of the lesser curve, approximately 5 cm from the hiatus. Eventually, the vasculature was from the lesser curve and the posterior, lesser sac was entered. ?? The hiatal region was freed up of some attachments to the diaphragm, thus exposing the left nicolle. There was no significant hiatal hernia. ?? A firing of an endo-CYNTHIA 60 stapler with a blue load in a transverse direction across the stomach was performed. The stapler was then fired multiple times until a small narrow pouch was created. The pouch accommodated a volume of approximately 20 cc to 30 cc. ?? The patient was then placed into some Trendelenburg position. The omentum and transverse colon reflected cephalad. The ligament of Treitz was identified and dissection was carried along approximately 40 cm from the ligament of Treitz. A small window was made in the small bowel mesentery and a stapler was introduced through this to create a firing of the stapler and divide the small bowel. The harmonic scalpel was used to divide the mesentery for a Rouxlimb. ?? At a point approximately 100 cm, the distal bowel was chosen to create the [id number] jejunojejunostomy. The duodenal, afferent limb was approximated to the side wall of the jejunum at the 100-cm michael. Enterotomies were made in both and a single firing of an EndoGIA vascular load was used to create anastomosis. The resultant defect was sewn in two layers of running 2-0 Surgilon suture. ?? A split was made in the omentum using the harmonic scalpel just above the transverse colon and the Med limb fed through this. Two stay stitches in the side wall of the Med limb were approximated to the end of the gastric pouch. An enterotomy was made in the gastric pouch and the jejunostomy and a partial-length firing of the CYNTHIA-60 stapler was used to create the anastomosis between this pouch and the Jejunum. There was an intraluminal ooze that was clipped. ?? The resultant enterotomy defect was closed with a running 2- 0 Surgilon suture in two layers with a 30 Israeli Bougie (blunt-tipped) in place. The Bougie was then removed and the Med limb clamped with a bowel clamp. The endoscope was introduced and the pouch and anastomosis was insufflated under saline. Inspection of the anastomosisdid not reveal any leak. It appeared to be patent and allowed passage of an endoscope without resistance. ?? The mesenteric defect behind the J-J anastomosis was then closed with a running 2-0 Surgilon suture.Inspection of the abdomen revealed excellent hemostasis. ?? All ports were then removed under direct vision and the skin was closed with running subcuticular 4-0 Vicryl suture, followed by Steri- Strips and Band-aids. The patient returned to the Recovery Room in stable conditions. Sponge, instrument and needle counts were correct. Infection Bundle used? N/A I was the attending physician and I was present and scrubbed throughout the procedure. No qualified resident was available. documented in this encounter Plan of Treatment Not on filedocumented as of this encounter Procedures Procedure Name Priority Date/Time Associated Comments Diagnosis HEMOGRAM Routine 07/13/2017 6:32 AM Results f or this EDT procedure are i n the results section. DIFFERENTIAL, Routine 07/13/2017 6:32 AM Results for this AUTOMATED EDT procedure are i n the results section. CBC (WITH DIFF) Routine 07/13/2017 6:32 AM EDT PHOSPHORUS Routine 07/13/2017 6:32 AM Results f or this EDT procedure are i n the results section. MAGNESIUM Routine 07/13/2017 6:32 AM Results f or this EDT procedure are i n the results section. BASIC METABOLIC PANEL Routine 07/13/2017 6:32 AM Results for this (NON-FASTING) EDT procedure are in the results section. HEMOGRAM Routine 07/12/2017 4:46 AM Results f or this EDT procedure are i n the results section. DIFFERENTIAL, Routine 07/12/2017 4:46 AM Results for this AUTOMATED EDT procedure are i n the results section. CREATININE Routine 07/12/2017 4:46 AM Results f or this EDT procedure are i n the results section. CBC (WITH DIFF) Routine 07/12/2017 4:46 AM EDT BUN Routine 07/12/2017 4:46 AM Results f or this EDT procedure are i n the results section. PHOSPHORUS Routine 07/12/2017 4:46 AM Results f or this EDT procedure are i n the results section. MAGNESIUM Routine 07/12/2017 4:46 AM Results f or this EDT procedure are i n the results section. GLUCOSE, FASTING Routine 07/12/2017 4:46 AM Resul ts for this EDT procedure are i n the results section. ELECTROLYTES PANEL Routine 07/12/2017 4:46 AM Res ults for this EDT procedure are i n the results section. ENDOSCOPY, UPPER GI, 07/11/2017 11:57 [facility]ES[facility] DIAGNOSTIC, WITH OR AM EDT WITHOUT SPECIMENS @LAPAROSCOPIC 07/11/2017 11:57 MORB[facility] OBESITY GASTROPLASTY W/ AM EDT MED-EN-Y CONSTRUCTION (WRVU 29.4) SPEEDER FRAME TENDER SCAN 07/11/2017 12:00 Res ults for this AM EDT procedure are i n the results section. documented in this encounter Results (ABNORMAL) Differential, Automated (07/13/2017 6:32 AM EDT) [facility] gist Method Time Signature Neutrophils % 71.1 % [facility] LABORATORY Neutr Abs (ANC) 6.99 (H) 1.70 - [facility] 6.10 [facility] x10(3)/[facility] LABORATORY Lymphocytes % 20.4 % [facility] Lymphocytes Abs 2.0 0.9 - 3.2 [facility] x10(3)/[facility] LABORATORY Monocytes % 7.7 % [facility] Monocyte Abs 0.8 0.3 - 0.9 [facility] x10(3)/[facility] LABORATORY Eosinophils % 0.3 % [facility] Eosinophils Abs 0.0 0.0 - 0.4 [facility] x10(3)/[facility] LABORATORY Basophils % 0.3 % [facility] Basophils Abs 0.0 0.0 - 0.1 [facility] x10(3)/[facility] LABORATORY Immature Gran % 0.20 % [facility] Comment: Immature granulocytes(IG's)percentage an d absolute count will include metamyelocytes, myelocytes, and promyelo cytes. Blood smears from CBCs yielding IG's will be scanned manually for concor dance. If this scan disagrees with the automated IG or if promyelocytes are not ed, a manual differential will be performed. Sade Gran Abs 0.02 0.00 - 0.04 x10(3)/[facility] Y [facility] LABORATORY Specimen Anatomical Collection Method Collection Time Receive d Time (Source) Location / / Volume Laterality Blood specimen 07/13/2017 6:32 AM 018 6:53 (specimen) EDT AM EDT Resulting Agency Comment Spec In Lab Mayra Carranza MD HEMATOLOGY ORDERABLES Performing Organization Address City/State/[place] [address] (ABNORMAL) Hemogram (07/13/2017 6:32 AM EDT) P athologist Signature WBC 9.8 (H) 4.0 - 9.5 [facility] x10(3)/[facility] LABORATORY RBC 4.64 4.00 - [facility] 5.21 [facility] x10(6)/[facility] Hemoglobin 14.5 11.7 - [facility] 15.5 gm/dL [facility] LABORATORY Hematocrit 43.0 35.7 - [facility] 45.8 % [facility] MCV 92.7 82.6 - [facility] MCH 31.3 27.1 - [facility] 32.0 pg [facility] MCHC 33.7 31.7 - [facility] 35.0 gm/dL [facility] Platelets 272 145 - 357 [facility] x10(3)/[facility] LABORATORY RDWSD 43.4 37.0 - [facility] 46.0 [facility] RDWCV 12.8 11.5 - [facility] 14.1 % [facility] LABORATORY MPV 9.8 7.6 - 12.9 [facility] LABORATORY nRBC % Auto 0.0 % [facility] nRBC Abs Auto 0.000 0.000 - [facility] 0.000 [facility] x10(3)/[facility] LABORATORY Specimen Anatomical Collection Method Collection Time Receive d Time (Source) Location / / Volume Laterality Blood specimen 07/13/2017 6:32 AM 018 6:53 (specimen) EDT AM EDT Resulting Agency Comment Spec In Lab Mayra Carranza MD HEMATOLOGY ORDERABLES Performing Organization Address City/State/ZIP Code Phon e Number [address] (ABNORMAL) Phosphorus (07/13/2017 6:32 AM EDT) athologist Signature Phosphorus 2.3 (L) 2.5 - 4.5 [facility] mg/dL [facility] LABOR[facility]ORY Specimen Anatomical Collection Method Collection Time Receive d Time (Source) Location / / Volume Laterality Blood specimen 07/13/2017 6:32 AM 018 6:53 (specimen) EDT AM EDT Resulting Agency Comment Spec In Lab Mayra Carranza MD CHEMISTRY ORDERABLES Performing Organization Address City/[facility]/ZIP Code Phon e Number [address] Magnesium (07/13/2017 6:32 AM EDT) P athologist Signature Magnesium 0.79 0.69 - 1.07 [facility] mmol/L [facility] LABOR[facility]ORY Specimen Anatomical Collection Method Collection Time Receive d Time (Source) Location / / Volume Laterality Blood specimen 07/13/2017 6:32 AM 018 6:53 (specimen) EDT AM EDT Resulting Agency Comment Spec In Lab Mayra Carranza MD CHEMISTRY ORDERABLES Performing Organization Address City/[facility]/[place] [address] (ABNORMAL) Basic Metabolic Panel (non-fasting) (07/13/2017 6:32 AM EDT) athologist Signature Glucose Lvl 96 65 - 199 [facility] mg/dL [facility] Comment: Diabetes: >=200 mg/dL plus symp toms BUN 5 (L) 8 - 18 mg/dL [facility] LABORATORY Creatinine 0.55 (L) 0.70 - 1.20 mg/dL [facility] LABORATORY Sodium 139 135 - 145 mmol/L [facility] LABOR[facility] Potassium 3.7 3.5 - 5.0 mmol/L [facility] LABOR[facility] Comment: Please note: ??Patients with WBC >100,00 0 may have falsely elevated Potassium levels. ??For accurate Potassium quantif ication in these patients send serum separator tube (gold top) for subsequent determinations. ??Contact the Clinical Chemistry Laboratory if there are any qu estions. Chloride 101 98 - 107 mmol/L [facility] CO2 24 22 - 31 mmol/L [facility] Anion Gap 14 5 - 15 mmol/L [facility] LABORATORY Calcium 8.6 8.5 - 10.5 mg/dL [facility] LABOR[facility]ORY Estimated GFR >60 >=60 [facility] LABORATORY Comment: The reported eGFR should be multiplied b y 1.2 for patients. The MDRD is not an appropriate measure o f renal function for patients with body mass extremes or in patients with acute kidney failure. http://Epom/DHnkdep http://Epom/DHMCnkf Specimen Anatomical Collection Method Collection Time Receive d Time (Source) Location / / Volume Laterality Blood specimen 07/13/2017 6:32 AM 018 6:53 (specimen) EDT AM EDT Resulting Agency Comment Spec In Lab Mayra Carranza MD CHEMISTRY ORDERABLES Performing Organization Address City/State/[place] [address] (ABNORMAL) Differential, Automated (07/12/2017 4:46 AM EDT) [facility] gist Method Time Signature Neutrophils % 84.7 % [facility] Neutr Abs (ANC) 12.22 (H) 1.70 - [facility] 6.10 [facility] x10(3)/[facility] L LABORATORY Lymphocytes % 7.5 % [facility] Lymphocytes Abs 1.1 0.9 - 3.2 [facility] x10(3)/[facility] LABORATORY Monocytes % 7.1 % [facility] Monocyte Abs 1.0 (H) 0.3 - 0.9 [facility] x10(3)/[facility] LABORATORY Eosinophils % 0.0 % [facility] Eosinophils Abs 0.0 0.0 - 0.4 [facility] x10(3)/[facility] LABORATORY Basophils % 0.1 % [facility] Basophils Abs 0.0 0.0 - 0.1 [facility] x10(3)/[facility] LABORATORY Immature Gran % 0.60 % [facility] Comment: Immature granulocytes(IG's)percentage an d absolute count will include metamyelocytes, myelocytes, and promyelo cytes. Blood smears from CBCs yielding IG's will be scanned manually for concor dance. If this scan disagrees with the automated IG or if promyelocytes are not ed, a manual differential will be performed. Sade Gran Abs 0.08 (H) 0.00 - 0.04 x10(3)/[facility] LABORATORY Specimen Anatomical Collection Method Collection Time Receive d Time (Source) Location / / Volume Laterality Blood specimen 07/12/2017 4:46 AM 018 4:50 (specimen) EDT AM EDT Resulting Agency Comment Spec In Lab Mayra Carranza MD HEMATOLOGY ORDERABLES Performing Organization Address City/State/[place] [address] (ABNORMAL) Hemogram (07/12/2017 4:46 AM EDT) Analysis Performed At Patho logist Time Signature WBC 14.4 (H) 4.0 - 9.5 [facility] x10(3)/[facility] LABORATORY RBC 4.42 4.00 - [facility] 5.21 [facility] x10(6)/[facility] LABORATORY Hemoglobin 13.8 11.7 - [facility] 15.5 gm/dL [facility] LABORATORY Hematocrit 41.5 35.7 - [facility] 45.8 % [facility] LABORATORY MCV 93.9 82.6 - [facility] 94.4 [facility] LABORATORY MCH 31.2 27.1 - [facility] 32.0 pg [facility]ATORY MCHC 33.3 31.7 - [facility] 35.0 gm/dL [facility] LABORATORY Platelets 281 145 - 357 [facility] x10(3)/[facility] LABORATORY RDWSD 43.1 37.0 - [facility] 46.0 [facility] LABORATORY RDWCV 12.4 11.5 - [facility] 14.1 % [facility] LABORATORY MPV 9.6 7.6 - 12.9 [facility] LABORATORY nRBC % Auto 0.0 % [facility] LABOR[facility] nRBC Abs Auto 0.000 0.000 - [facility] 0.000 [facility] x10(3)/[facility] LABORATORY Specimen Anatomical Collection Method Collection Time Receive d Time (Source) Location / / Volume Laterality Blood specimen 07/12/2017 4:46 AM 018 4:50 (specimen) EDT AM EDT Resulting Agency Comment Spec In Lab Mayra Carranza MD HEMATOLOGY ORDERABLES Performing Organization Address City/[facility]/ZIP Code Phon e Number [address] Phosphorus (07/12/2017 4:46 AM EDT) P athologist Signature Phosphorus 3.6 2.5 - 4.5 [facility] mg/dL [facility] LABORATORY Specimen Anatomical Collection Method Collection Time Receive d Time (Source) Location / / Volume Laterality Blood specimen 07/12/2017 4:46 AM 018 4:49 (specimen) EDT AM EDT Resulting Agency Comment Spec In Lab Mayra Carranza MD CHEMISTRY ORDERABLES Performing Organization Address City/[facility]/ZIP Code Phon e Number [address] Magnesium (07/12/2017 4:46 AM EDT) athologist Signature Magnesium 0.80 0.69 - 1.07 [facility] mmol/L [facility] LABORATORY Specimen Anatomical Collection Method Collection Time Receive d Time (Source) Location / / Volume Laterality Blood specimen 07/12/2017 4:46 AM 018 4:49 (specimen) EDT AM EDT Resulting Agency Comment Spec In Lab Mayra Carranza MD CHEMISTRY ORDERABLES Performing Organization Address City/[facility] Phon e Number [address] (ABNORMAL) Glucose, fasting (07/12/2017 4:46 AM EDT) athologist Signature Glucose 112 (H) 65 - 99 [facility] Fasting mg/dL [facility] LAB[facility]ORY Comment: ?Fasting* Glucose Interpretive C riteria Normal ?65-99 mg/dL Impaired Fasting glucose ?100-125 mg/dL Consistent with Diabetes Mellitus ? >or= 126 mg/dL *Fasting is defined as no caloric intake for at least 8 hours In the absence of unequivocal hypergly cemia a plasma glucose value of >or= 126 mg/dL should be repeated on a subseq uent day. Diagnosis and Classification of Diabetes Mellitus, Position Statement from the [place] [employer]. ??Diabete s Care, Volume 33, Supplement 1, Feb 2009 Specimen Anatomical Collection Method Collection Time Receive d Time (Source) Location / / Volume Laterality Blood specimen 07/12/2017 4:46 AM 018 4:49 (specimen) EDT AM EDT Resulting Agency Comment Spec In Lab Mayra Carranza MD CHEMISTRY ORDERABLES Performing Organization Address City/[facility] [place] [facility] [place] [place] [address] (ABNORMAL) Creatinine (07/12/2017 4:46 AM EDT) Analysis Performed At Patho logist Time Signature Creatinine 0.68 (L) 0.70 - [facility] 1.20 mg/dL [facility] LABORATORY Estimated GFR >60 >=60 [facility] Comment: The reported eGFR should be multiplied b y 1.2 for patients. The MDRD is not an appropriate measure o f renal function for patients with body mass extremes or in patients with acute kidney failure. http://Epom/DHnkdep http://Epom/DHMCnkf Specimen Anatomical Collection Method Collection Time Receive d Time (Source) Location / / Volume Laterality Blood specimen 07/12/2017 4:46 AM 018 4:49 (specimen) EDT AM EDT Resulting Agency Comment Spec In Lab Mayra Carranza MD CHEMISTRY ORDERABLES Performing Organization Address City/[facility] [place] [facility] Phon e Number [address] BUN (07/12/2017 4:46 AM EDT) P athologist Signature BUN 8 8 - 18 [facility] mg/dL [facility] LABORATORY Specimen Anatomical Collection Method Collection Time Receive d Time (Source) Location / / Volume Laterality Blood specimen 07/12/2017 4:46 AM 018 4:49 (specimen) EDT AM EDT Resulting Agency Comment Spec In Lab Mayra Carranza MD CHEMISTRY ORDERABLES Performing Organization Address [facility] [place] [facility] Phon e Number [address] Electrolytes panel (07/12/2017 4:46 AM EDT) P athologist Signature Sodium 138 135 - 145 [facility] mmol/L [facility] LABORATORY Potassium 4.0 3.5 - 5.0 [facility] mmol/L [facility] LABOR[facility]ORY Comment: Please note: ??Patients with WBC >100,00 0 may have falsely elevated Potassium levels. ??For accurate Potassium quantif ication in these patients send serum separator tube (gold top) for subsequent determinations. ??Contact the Clinical Chemistry Laboratory if there are any qu estions. Chloride 101 98 - 107 mmol/L [facility] LABOR[facility]ORY CO2 23 22 - 31 mmol/L [facility] LABOR[facility] Anion Gap 14 5 - 15 mmol/L [facility] LABORATORY Specimen Anatomical Collection Method Collection Time Receive d Time (Source) Location / / Volume Laterality Blood specimen 07/12/2017 4:46 AM 018 4:49 (specimen) EDT AM EDT Resulting Agency Comment Spec In Lab Mayar Carranza MD CHEMISTRY ORDERABLES Performing Organization Address City/State/Z[place] [address] SCAN DOC: SPEEDER FRAME TENDER (07/11/2017 12:00 AM EDT) Anatomical Region Laterality Modality Other Narrative 07/11/2017 12:00 AM EDT This result has an attachment that is no t available. Ordered by an unspecified provider. Scanning Provider MEDIA MGR SCAN EXT ORDR/RSLT documented in this encounter Visit Diagnoses Not on filedocumented in this encounter Administered Medications Inactive Administered Medications - up to 3 most recent administrations Medication Order MAR Action Action Date Dose Rate Site acetaminophen (TYLENOL) tablet 650 Given 07/13/2017 5:05 AM EDT 650 mg mg 650 mg, Oral, EVERY 4 HOURS, First dose on Sat07/12/17 at 1500, Until Discontinued, Maximum dose of acetaminophen is 4000 mg from all sources in 24 hours. Crush prior to administration, Routine Given 07/13/2017 1:25 AM EDT 650 mg Given 07/12/2017 5:56 PM EDT 650 mg albuterol (PROVENTIL) nebulizer solution 2.5 Given 9:48 AM EDT 2.5 mg mg 2.5 mg, Nebulization, EVERY 2 HOURS PRN, Starting on Genia 07/11/17 at 1501, Until 07/13/17 at 1206, Wheezing, Shortness of Breath, Routine BUpivacaine (PF) (MARCAINE) Given 07/11/2017 2:37 PM EDT 15 mLs 19- Surgical Site 0.25 % (2.5 mg/mL) injection ONCE PRN, Starting on Genia 07/11/17 at 1437, Until 07/13/17 at 1206, Intra-Operative (Intra-Procedure), Routine buPROPion (WELLBUTRIN) tablet 100 mg Given 07/13/2017 8:56 AM EDT 100 mg 100 mg, Oral, 3 TIMES DAILY, First dose on Sat07/12/17 at 0900, Until Discontinued, cruz, Routine Given 07/12/2017 8:27 PM EDT 100 mg Given 07/12/2017 4:14 PM EDT 100 mg enoxaparin (LOVENOX) injection 40 mg Given 07/13/2017 8:57 AM EDT 40 mg 40 mg, Subcutaneous, 2 TIMES DAILY, First dose on Genia 07/11/17 at 2100, Until Discontinued, Recovery (Recovery-Hospital Unit), Routine Given 07/12/2017 8:28 PM EDT 40 mg Abdom inal Tissue Given 07/12/2017 8:52 AM EDT 40 mg lidocaine (XYLOCAINE) 10 mg/mL (1 %) inj ection 3 mg 3 mg (0.3 mL), Subcutaneous, ONCE PRN, 1 dose, Startin g on Genia 07/11/17 at 1825, Until 07/13/17 at 1206, for discomfort with PIV ins ertion, Recovery (Recovery-Hospital Unit), Routine losartan (COZAAR) tablet 50 mg Given 07/13/2017 8:56 AM EDT 50 mg 50 mg, Oral, 2 TIMES DAILY, First dose on Sat07/12/17 at 0900, Until Discontinued, crush, Routine Given 07/12/2017 8:27 PM EDT 50 mg Given 07/12/2017 8:52 AM EDT 50 mg ondansetron (ZOFRAN) injection 4 mg 4 mg, Intravenous, EVERY 8 HOURS PRN, St arting on Genia 07/11/17 at 1825, Until 07/13/17 at 1206, Nausea, Can give second dose of 4 mg if nausea not relieved in 30 minutes, Recovery (Recovery-Hospital Unit) oxyCODONE (ROXICODONE) 5 mg/5 mL solution 5-10 Given 0 07/12/2017 8:27 PM EDT 5 mg mg 5-10 mg, Oral, EVERY 4 HOURS PRN, Starting on Sat07/12/17 at 0927, Until 07/13/17 at 1206, Pain, for pain 1-5 give 5mg; for pain 6-10 give 10mg, Routine Given 07/12/2017 4:14 PM EDT 5 mg Given 07/12/2017 9:56 AM EDT 5 mg pantoprazole (PROTONIX) injection 40 mg Given 07/13/2017 8:51 AM EDT 40 mg 40 mg, Intravenous, DAILY, First dose on Genia 07/11/17 at 1845, Until Discontinued, Reconstitute with 10 mL of normal saline to a concentration of 4 mg/mL and infuse slowly over 2 minutes. , Recovery (Recovery-Hospital Unit), Routine Given 07/12/2017 8:51 AM EDT 40 mg Given 07/11/2017 7:35 PM EDT 40 mg polyethylene glycol (MIRALAX) packet 17 g Given 07/13/2017 8:55 AM EDT 17 g 17 g, Oral, DAILY, First dose on Sat07/12/17 at 0900, Until Discontinued, Administer if no bowel movement within 48 hours to achieve: (1) One bowel movement at least every 48 hours, AND (2) without straining. If multiple PRN bowel medications ordered, start with polyethylene glycol, then lactulose, then oral bisacodyl, then bisacodyl suppository, then magnesium citrate, then tap water enema. Multiple medications may be given concomitantly for constipation., Recovery (Recovery-Hospital Unit), Routine Given 07/12/2017 8:52 AM EDT 17 g prochlorperazine (COMPAZINE) injection 1 0 mg 10 mg, Intravenous, EVERY 6 HOURS PRN, S tarting on Genia 07/11/17 at 1825, Until 07/13/17 at 1206, Nausea, If nausea not resolved with o ndansetron, Recovery (Recovery-Hospital Unit), Routine sodium chloride 0.9 % flush 5 mL Given 07/13/2017 8:57 AM EDT 5 mLs 5 mL, Intravenous, 2 TIMES DAILY, First dose on Genia 07/11/17 at 2100, Until Discontinued, Recovery (Recovery-Hospital Unit), Routine Given 07/12/2017 8:28 PM EDT 5 mLs Given 07/12/2017 8:52 AM EDT 5 mLs sodium chloride 0.9 % flush 5-20 mL 5-20 mL, Intravenous, EVERY 1 MIN PRN, S tarting on Genia 07/11/17 at 1825, Until 07/13/17 at 1206, flush, Flush pertains t o all indwelling lines. Flush per protocol found in the job aid using the link prov ided on this medication record., Recovery (Recovery-Hospital Unit), Routine documented in this encounter Active and Recently Administered Medications Times are shown in EDT. Scheduled Medication Order 07/11/2017 07/12/2017 07/13/2017 acetaminophen (OFIRMEV) injection 1,000 mg (CANCELED) 1934 (Given - Provider: George Mcfarland RN)2344 (Given - Provider: George Mcfarland RN) 0532 (Given - Provider: George Mcfarland RN) 1,000 mg, Intravenous, at 400 mL/hr, BALDOMERO RY 6 HOURS SCHEDULED, 4 doses, First dose on Genia 07/11/17 at 1845, Last dose on Sat07/12/17 at 1200, Maximum dose of acetaminophen is 4000 mg from all sources in 2 4 hours., Recovery (Recovery-Hospital Unit), Routine acetaminophen (TYLENOL) 650 mg/20.3 mL oral liquid 650 mg (C ANCELED) 1204 (Given - Provider: Therese Loenard RN) 650 mg, Oral, EVERY 4 HOURS SCHEDULED, F irst dose on Sat07/12/17 at 1200, Until Discontinued, Maximum dose of acetaminophen is 4,000 mg from all sources in 24 hours., Routine acetaminophen (TYLENOL) tablet 650 mg 16 14 (Not Given - Provider: Therese Leonard RN - Reason: Patient/family refused)1756 (Given - Provider: Therese Leonard RN) 0125 (Given - Provider: Nathalia brunson RN)0505 (Given - Provider: Nathalia Hilton RN)1000 (Due - Provider: Norma Carvalho [facility]) 650 mg, Oral, EVERY 4 HOURS, First dose on Sat07/12/17 at 1500, Until Discontinued, Maximum dose of acetaminophen is 4000 mg from all sources in 24 hours. Crush prior to administration, Routine buPROPion (WELLBUTRIN) tablet 100 mg 085 2 (Given - Provider: Therese Leonard RN)1614 (Given - Provider: Therese Leonard RN)2027 (Given - Provider: Bronwyn Lucas RN) 0856 (Given - Provider: Cinthya frederick, JOHNNIE) 100 mg, Oral, 3 TIMES DAILY, First dose on Sat07/12/17 at 0900, Until Discontinued, crush, Routine enoxaparin (LOVENOX) injection 40 mg (COMPLETED) 1000 (Given - Provider: Clementina Blanco, RN) 40 mg, Subcutaneous, ONCE, 1 dose, Genia at 1000, Please give in preop, Routine enoxaparin (LOVENOX) injection 40 mg 2029 (Given - Pro vider: George Mcfarland RN) 0852 (Given - Provider: Therese Leonard, JOHNNIE)2027 (Given - Provider: Bronwyn Mckeon V, JOHNNIE) 0857 (Given - Provider: Cinthya frederick, JOHNNIE) 40 mg, Subcutaneous, 2 TIMES DAILY, Firs t dose on Sat07/11/17 at 2100, Until Discontinued, Recovery (Recovery-Hospital Unit), Routine losartan (COZAAR) tablet 50 mg 851 (Giv en - Provider: Therese Leonard RN)2026 (Given - Provider: Bronwyn Mckeon V, JOHNNIE) 0856 (Given - Provider: Cinthya Pickens, JOHNNIE) 50 mg, Oral, 2 TIMES DAILY, First dose o n Sat07/12/17 at 0900, Until Discontinued, crush, Routine pantoprazole (PROTONIX) injection 40 mg 1934 (Given - Provider: George Mcfarland RN) 0851 (Given - Provider: Therese Leonard, JOHNNIE) 0851 (Give n - Provider: Cinthya Pickens, JOHNNIE) 40 mg, Intravenous, DAILY, First dose on Sat07/11/17 at 1845, Until Discontinued, Reconstitute with 10 mL of normal saline to a concentration of 4 mg/mL and infuse slowly over 2 minutes. , Recovery (Recovery-Hospital Unit), Routine polyethylene glycol (MIRALAX) packet 17 g 0852 (Given - Provider: Therese Leonard RN) 0855 (Given - Provider: Cinthya frederick, JOHNNIE) 17 g, Oral, DAILY, First dose on 06/25 at 0900, Until Discontinued, Administer if no bowel movement within 48 hours to achieve: (1) One bowel movement at least every 48 hours, AND (2) without stra ining. If multiple PRN bowel medications ordered, start with polyethylene glycol, then lactulose, then oral bisacodyl, then bisacodyl suppository, then magnesium citrate, then tap water enema. Multiple medications may be given concomitantly f or constipation., Recovery (Recovery- Hospital Unit), Routine sodium chloride 0.9 % flush 5 mL 2029 (Given - Provide r: George Mcfarland RN) 0852 (Given - Provider: Therese Leonard RN)2027 (Given - Provider: Bronwyn Lucas RN)2030 (Not Given - Provider: Bronwyn Lucas RN - Reason: See comment - Comment: MIVF infusing) 0857 (Given - Provider: Cinthya Pickens RN) 5 mL, Intravenous, 2 TIMES DAILY, First dose on Genia 07/11/17 at 2100, Until Discontinued, Recovery (Recovery-Hospital Unit), Routine Continuous Medication Order 07/11/2017 07/12/2017 07/13/2017 HYDROmorphone (DILAUDID) 1 mg/mL DROP FORGER 50 mL (CANCELED) 1507 (New Syringe/Cartridge - Provider: Gisella Gold, JOHNNIE) 0949 (Stopped - Provider: Therese Leonard, JOHNNIE) Intravenous, DROP FORGER ONLY, Starting Genia 07/11 at 1515, Until Sat07/12/17 at 0928, Recovery (Recovery-Hospital Unit) lactated Ringers infusion 1,000 mL (CANCELED) 1014 (Ne w Bag - Provider: Chloe Mondragon RN)1506 (Stopped - Provider: Gisella Gold, JOHNNIE) 1,000 mL, at 100 mL/hr, Intravenous, CON TINUOUS, Starting Genia 07/11/17 at 1000, Until Genia 07/11/17 at 1820, Day of Surgery (Day of Procedure) lactated Ringers infusion (CANCELED) 1506 (New Bag - P rovider: Gisella Gold, JOHNNIE) 0135 (New Bag - Provider: George tran RN)203 (New Bag - Provider: Bronwyn Lucas RN) 0605 (New Bag - Provider: Nathalia Hilton RN)0858 (Stopped - Provider: Cinthya Pickens RN) 105 mL/hr, at 105 mL/hr, Intravenous, CO NTINUOUS, Starting Genia 07/11/17 at 1515, Until 07/13/17 at 0740, Recovery (Recovery-Hospital Unit) PRN Medication Order 07/11/2017 07/12/2017 07/13/2017 albuterol (PROVENTIL) nebulizer solution 2.5 mg 0948 (Given - Provider: Therese Leonard RN) 2.5 mg, Nebulization, EVERY 2 HOURS PRN, Starting Genia 07/11/17 at 1501, Until 07/13/17 at 1206, Wheezing, Shortness of Breath, Routine BUpivacaine (PF) (MARCAINE) 0.25 % (2.5 mg/mL) injecti on (CANCELED) 1437 (Given - Provider: Mayra Carranza MD) ONCE PRN, Starting Genia 07/11/17 at 1437, Until 07/13/17 at 1206, Intra- Operative (Intra-Procedure), Routine diphenhydrAMINE (BENADRYL) injection 25 mg (CANCELED) 0131 (Given - Provider: Nathalia Hilton RN) 25 mg, Intravenous, EVERY 6 HOURS PRN, S tarting Genia 07/11/17 at 1825, Until 07/13/17 at 0740, Itching, Recovery (Recovery-Hospital Unit), Routine lidocaine (XYLOCAINE) 10 mg/mL (1 %) injection 3 mg (C OMPLETED) 1015 (Given - Provider: Chloe Mondragon RN) 3 mg (0.3 mL), Subcutaneous, ONCE PRN, 1 dose, Starting Genia 07/11/17 at 0931, Until Discontinued, for discomfort with PIV insertion, Day of Surgery (Day of Procedure), Routine lidocaine (XYLOCAINE) 10 mg/mL (1 %) injection 3 mg 3 mg (0.3 mL), Subcutaneous, ONCE PRN, 1 dose, Starting Genia 07/11/17 at 1825, Until 07/13/17 at 1206, for discomfort with PIV insertion, Recovery (Recovery-Hospital Unit), Routine ondansetron (ZOFRAN) injection 4 mg (CANCELED) 172 ([place] - Provider: Gisella Gold, RN) 4 mg, Intravenous, EVERY 30 MIN PRN, Sta rting Genia 18 at 1443, Until Genia 18 at 1820, Nausea, May repeat 4 mg once in 30 minutes. If multiple antiemetics ordered, use ondansetron first and if ineffective use prochlorperazine second and if ineffective use promethazine, PACU Recovery ondansetron (ZOFRAN) injection 4 mg 4 mg, Intravenous, EVERY 8 HOURS PRN, St arting Genia 07/11/17 at 1825, Until 07/13/17 at 1206, Nausea, Can give second dose of 4 mg if nausea not relieved in 30 minutes, Recovery (Recovery-Hospital Unit) oxyCODONE (ROXICODONE) 5 mg/5 mL solution 5-10 mg 0956 (Given - Provider: Therese Leonard, JOHNNIE)161 (Given - Provider: Therese Leonard RN)2026 (Given - Provider: Bronwyn Mckeon V, RN) 5-10 mg, Oral, EVERY 4 HOURS PRN, Starti ng Fri 07/12/17 at 0927, Until 07/13/17 at 1206, Pain, for pain 1-5 give 5mg; for pain 6-10 give 10mg, Routine prochlorperazine (COMPAZINE) injection 10 mg 10 mg, Intravenous, EVERY 6 HOURS PRN, S tarting Genia 07/11/17 at 1825, Until Sat 18 at 1206, Nausea, If nausea not resolved with ondansetron, Recovery (Recovery-Hospital Unit), Routine promethazine (PHENERGAN) injection 12.5 mg (CANCELED) 1737 (Given - Provider: Gisella Gold, RN) 12.5 mg, Intravenous, EVERY 30 MIN PRN, 2 doses, Starting Genia 18 at 1443, Until Genia 18 at 1820, Nausea, VESICANT - Dilute with a minimum of 10 mL saline. LARGE VEIN only. Inject over 10 minute s into the farthest port of a running IV infusion. Remain with the patient and STOP infusion immediately if patient reports burning. Avoid extravasation. If multiple antiemetics are ordered, use onda nsetron first and if ineffective use pro chlorperazine second and if ineffective use promethazine., PACU Recovery, Routine sodium chloride 0.9 % flush 5-20 mL 5-20 mL, Intravenous, EVERY 1 MIN PRN, S tarting Genia 07/11/17 at 1825, Until 07/13/17 at 1206, flush, Flush pertains to all indwelling lines. Flush per protocol found in the job aid using the link prov ided on this medication record., Recovery (Recovery-Hospital Uni t), Routine documented in this encounter Care Teams Revenue Accountant Relationship Specialty Start Date End Date Karly Riojas APRN PCP - General Family Medicine 08/10/16 09/29/17 [address] [place] [address] documented as of this encounter
--- OUTSIDE RECORDS SUMMARY | 2022-01-13 19:39 | XMS_ITS | Encounter Summary ---
:1970 [place] [address] Care Team Providers Name Role Phone Karly Riojas APRN Primary Care Provider [phone] Encounter Details Date Type Department Care Team Description 07/12/2017 Notes Only General Surgery at [facility] Clementina Casanova APRN [facility] [place] [address] [facility] [place], [place] [address] [phone] [place], [place] [address] (Wo rk) Social History Tobacco Use Types Packs/Day Years Used Date Smoking Tobacco: Never Smokeless Tobacco: Never Alcohol Use Standard Drinks/Week Comments No 0 (1 standard drink = 0.6 oz pure alcoho l) Sex Assigned at Date Recorded Not on file documented as of this encounter Progress Notes Clementina Casanova APRN - 07/12/2017 10:10 AM EDT Reviewed post op vitamins with Blanquita Hernandez. Lilliam will take bariatric fusion 4 a day, will continuevitamin D (50,000 units weekly), will hold ferrous gluconate for now as she now has mirena and has 11mg elemental iron in the fusion. Will check at 4 months post op, sooner if indicated. documented in this encounter Plan of Treatment Not on filedocumented as of this encounter Visit Diagnoses Not on filedocumented in this encounter Care Teams Computer Customer Support Specialist Relationship Specialty Start Date End Date Karly Riojas APRN PCP - General Family Medicine 08/10/16 09/29/17 [address] [place] [address] documented as of this encounter
--- OUTSIDE RECORDS SUMMARY | 2022-01-13 19:39 | XMS_ITS | Encounter Summary ---
:1970 Author Organization [facility] [place] [address] Care Team Providers Name Role Phone Karly Riojas APRN Primary Care Provider [phone] Encounter Details Date Type Department Care Team Description 06/06/2017 Laboratory Appointment Lab 3[facility] Obesity, Class II, [facility] BMI 35-39.9, with [facility] [place] [address] Social History Tobacco Use Types Packs/Day Years Used Date Smoking Tobacco: Never Smokeless Tobacco: Never Sex Assigned at Date Recorded Not on file documented as of this encounter Plan of Treatment Not on filedocumented as of this encounter Procedures Procedure Name Priority Date/Time Associated Comments Diagnosis LAVENDER TUBE HOLD Routine 06/06/2017 10:50 Resul ts for this AM EDT procedure are i n the results section. PTH Routine 06/06/2017 10:48 Obesity, Class II, Resul ts for this AM EDT BMI 35-39.9, with procedure are in comorbidity the results section. HEMOGRAM Routine 06/06/2017 10:48 Obesity, Class II, Resul ts for this AM EDT BMI 35-39.9, with procedure are in comorbidity the results section. DIFFERENTIAL, Routine 06/06/2017 10:48 Obesity, Class II, Resu lts for this AUTOMATED AM EDT BMI 35-39.9, with procedure are in comorbidity the results section. VITAMIN B1, WHOLE Routine 06/06/2017 10:48 Obesity, Class II, Results for this BLOOD AM EDT BMI 35-39.9, with procedure are in comorbidity the results section. IRON AND TIBC Routine 06/06/2017 10:48 Obesity, Class II, Resu lts for this AM EDT BMI 35-39.9, with procedure are in comorbidity the results section. VITAMIN D, 25-HYDROXY Routine 06/06/2017 10:48 Obesity, Class II, Results for this AM EDT BMI 35-39.9, with procedure are in comorbidity the results section. CBC (WITH DIFF) Routine 06/06/2017 10:48 Obesity, Class II, AM EDT BMI 35-39.9, with comorbidity TSH Routine 06/06/2017 10:48 Results for this AM EDT procedure are i n the results section. HEMOGLOBIN A1C Routine 06/06/2017 10:48 Obesity, Class II, Res ults for this AM EDT BMI 35-39.9, with procedure are in comorbidity the results section. FOLATE, SERUM Routine 06/06/2017 10:48 Obesity, Class II, Resu lts for this AM EDT BMI 35-39.9, with procedure are in comorbidity the results section. FERRITIN Routine 06/06/2017 10:48 Obesity, Class II, Resul ts for this AM EDT BMI 35-39.9, with procedure are in comorbidity the results section. VITAMIN B12 Routine 06/06/2017 10:48 Obesity, Class II, Resul ts for this AM EDT BMI 35-39.9, with procedure are in comorbidity the results section. LIPID PANEL (REFLEX Routine 06/06/2017 10:48 Obesity, Class II , Results for this DIRECT LDL) AM EDT BMI 35-39.9, with procedure are in comorbidity the results section. COMPREHENSIVE Routine 06/06/2017 10:48 Obesity, Class II, Resu lts for this METABOLIC PANEL AM EDT BMI 35-39.9, with procedu re are in (NON-FASTING) comorbidity the results section. documented in this encounter Results Lavender Tube HOLD (06/06/2017 10:50 AM EDT) [facility] gist Method Time Signature Lavender Hold Sample in [facility] lab. [facility] Specimen Anatomical Collection Method Collection Time Receive d Time (Source) Location / / Volume Laterality Blood specimen No Charge / 06/06/2017 10:50 8 (specimen) Unknown AM EDT 10:58 AM EDT Sydney Monique MD HEMATOLOGY ORDERABLES Performing Organization Address City/State/[place] [address] [facility] [address] TSH (06/06/2017 10:48 AM EDT) athologist Signature TSH 1.58 0.27 - 4.20 [facility] mlU/ML [facility] Specimen Anatomical Collection Method Collection Time Receive d Time (Source) Location / / Volume Laterality Blood specimen Venous Draw / 06/06/2017 10:48 06/07/19 18 (specimen) Unknown AM EDT 10:58 AM EDT Resulting Agency Comment Spec In Lab Sydney Monique MD CHEMISTRY ORDERABLES Performing Organization Address City/State/ZIP Code Phon e Number [address] Differential, Automated (06/06/2017 10:48 AM EDT) athologist Signature Neutrophils % 64.2 % [facility] Neutr Abs (ANC) 4.30 1.70 - [facility] 6.10 [facility] x10(3)/[facility] LABORATORY Lymphocytes % 26.5 % [facility] Lymphocytes Abs 1.8 0.9 - 3.2 [facility] x10(3)/[facility] LABORATORY Monocytes % 6.9 % [facility] Monocyte Abs 0.5 0.3 - 0.9 [facility] x10(3)/[facility] LABORATORY Eosinophils % 1.9 % [facility] Eosinophils Abs 0.1 0.0 - 0.4 [facility] x10(3)/[facility] LABORATORY Basophils % 0.4 % [facility] Basophils Abs 0.0 0.0 - 0.1 [facility] x10(3)/[facility] LABORATORY Immature Gran % 0.10 % [facility] Comment: Immature granulocytes(IG's)percentage an d absolute count will include metamyelocytes, myelocytes, and promyelo cytes. Blood smears from CBCs yielding IG's will be scanned manually for concor dance. If this scan disagrees with the automated IG or if promyelocytes are not ed, a manual differential will be performed. Sade Gran Abs 0.01 0.00 - 0.04 x10(3)/[facility] LABORATORY Specimen Anatomical Collection Method Collection Time Receive d Time (Source) Location / / Volume Laterality Blood specimen 06/06/2017 10:48 8 (specimen) AM EDT 10:58 AM EDT Resulting Agency Comment Spec In Lab Sydney Monique MD HEMATOLOGY ORDERABLES Performing Organization Address City/State/[place] [address] (ABNORMAL) Hemogram (06/06/2017 10:48 AM EDT) Analysis Performed At Patho logist Time Signature WBC 6.7 4.0 - 9.5 [facility] x10(3)/[facility] LABORATORY RBC 5.17 4.00 - [facility] 5.21 [facility] x10(6)/[facility] LABORATORY Hemoglobin 15.8 (H) 11.7 - [facility] 15.5 gm/dL [facility] Hematocrit 47.7 (H) 35.7 - [facility] 45.8 % [facility] MCV 92.3 82.6 - [facility] 94.4 [facility] LABORATORY MCH 30.6 27.1 - [facility] 32.0 pg [facility] MCHC 33.1 31.7 - [facility] 35.0 gm/dL [facility] Platelets 304 145 - 357 [facility] x10(3)/[facility] LABORATORY RDWSD 41.8 37.0 - [facility] 46.0 [facility] LABORATORY RDWCV 12.1 11.5 - [facility] 14.1 % [facility] MPV 9.4 7.6 - 12.9 [facility] LABORATORY nRBC % Auto 0.0 % [facility] nRBC Abs Auto 0.000 0.000 - [facility] 0.000 [facility] x10(3)/[facility] LABORATORY Specimen Anatomical Collection Method Collection Time Receive d Time (Source) Location / / Volume Laterality Blood specimen 06/06/2017 10:48 8 (specimen) AM EDT 10:58 AM EDT Resulting Agency Comment Spec In Lab Sydney Monique MD HEMATOLOGY ORDERABLES Performing Organization Address City/[facility]/ZIP Code Phon e Number [address] Folate, serum (06/06/2017 10:48 AM EDT) athologist [facility] Folate Lvl >20.0 4.8 - 24.2 [facility] ng/mL [facility] Specimen Anatomical Collection Method Collection Time Receive d Time (Source) Location / / Volume Laterality Blood specimen 06/06/2017 10:48 8 (specimen) AM EDT 11:14 AM EDT Resulting Agency Comment Spec In Lab Sydney Monique MD CHEMISTRY ORDERABLES Performing Organization Address [facility]/ZIP [facility] Phon e Number [address] Vitamin B12 (06/06/2017 10:48 AM EDT) athologist [facility] Vitamin B-12 577 232 - 1,245 [facility] pg/mL [facility] Comment: Please note: Effective 01/23/2017, the r eference interval and the lower limit of detection for Vitamin B12 have been u pdated due to a new reagent formulation. Specimen Anatomical Collection Method Collection Time Receive d Time (Source) Location / / Volume Laterality Blood specimen 06/06/2017 10:48 8 (specimen) AM EDT 11:14 AM EDT Resulting Agency Comment Spec In Lab Sydney Monique MD CHEMISTRY ORDERABLES Performing Organization Address City/[facility]/ZIP Code Phon e Number [address] Vitamin B1, whole blood (06/06/2017 10:48 AM EDT) athologist Signature Vit B1 Lvl WB 133 70 - 180 [facility] nmol/L [facility] Comment: ADDITIONAL INFORMATIO N This test was developed and its performa nce characteristics determined by [facility] in a manner co nsistent with CLIA requirements. This test has not been lito ared or approved by the U.S. Food and Drug Administration. Test Performed by: [facility] [address] [place], [place] [address] Specimen Anatomical Collection Method Collection Time Receive d Time (Source) Location / / Volume Laterality Blood specimen 06/06/2017 10:48 8 4:36 (specimen) AM EDT PM EDT Resulting Agency Comment Spec In Lab Sydney Monique MD CHEMISTRY ORDERABLES Performing Organization Address City/[facility] [place] [address] (ABNORMAL) Vitamin D, 25-Hydroxy (06/06/2017 10:48 AM EDT) athologist Signature 25-OH Vit D 23 (L) 30 - 100 [facility] Total ng/mL [facility] Comment: Deficient <10 ng/mL Insufficient 10 to 29 ng/mL Sufficient 30 to 100 ng/mL Potential Intoxication >100 ng/mL According to the [place] National Osteoporosi s Foundation, Vitamin D concentrations >30 ng/mL are sufficient to protect bone health. ??The National Kidney Foundation has similarly stated that pat ients with Vitamin D concentrations <30ng/mL should be considered to be insu fficient or deficient. http://[employer].GoodApril/nkf-guidelines http://[employer]GoodApril/nejm-VitD The [employer] Vitamin D Immunoassay detec ts both 25-OH Vitamin D2 and 25-OH Vitamin D3, but only a total Vitamin D c oncentration is reported. Specimen Anatomical Collection Method Collection Time Receive d Time (Source) Location / / Volume Laterality Blood specimen 06/06/2017 10:48 8 (specimen) AM EDT 12:51 PM EDT Resulting Agency Comment Spec In Lab Sydney Monique MD CHEMISTRY ORDERABLES Performing Organization Address City/[facility] [place] [address] PTH (06/06/2017 10:48 AM EDT) athologist Signature PTH 57 15 - 65 [facility] pg/mL [facility] Specimen Anatomical Collection Method Collection Time Receive d Time (Source) Location / / Volume Laterality Blood specimen 06/06/2017 10:48 8 (specimen) AM EDT 10:58 AM EDT Resulting Agency Comment Spec In Lab Sydney Monique MD CHEMISTRY ORDERABLES Performing Organization Address City/State/[place] [address] Ferritin (06/06/2017 10:48 AM EDT) athologist Signature Ferritin 101 15 - 150 [facility] ng/mL [facility] Comment: Pediatric reference ranges not verified at [facility], interpret with caution. Reference ranges for females greater jose n 50 years of age approach values for men, i.e., 30-400 ng/mL. Specimen Anatomical Collection Method Collection Time Receive d Time (Source) Location / / Volume Laterality Blood specimen 06/06/2017 10:48 8 (specimen) AM EDT 10:58 AM EDT Resulting Agency Comment Spec In Lab Sydney Monique MD CHEMISTRY ORDERABLES Performing Organization Address City/State/ZIP Code Phon e Number [address] Iron and TIBC (06/06/2017 10:48 AM EDT) athologist Signature Iron 94 30 - 150 [facility] mcg/dL [facility] TIBC 259 250 - [address] [facility] Iron Saturation 36 20 - 50 % [facility] Specimen Anatomical Collection Method Collection Time Receive d Time (Source) Location / / Volume Laterality Blood specimen 06/06/2017 10:48 8 (specimen) AM EDT 10:58 AM EDT Resulting Agency Comment Spec In Lab Sydney Monique MD CHEMISTRY ORDERABLES Performing Organization Address City/State/ZIP Code Phon e Number [address] Hemoglobin A1c (06/06/2017 10:48 AM EDT) athologist Signature Hemoglobin A1C 5.5 4.3 - 5.6 [facility] LAB[facility]ORY Comment: Reference Range: 4.3 - 5.6% 5.7 - 6.4% - Increased Risk of Developin g Diabetes Mellitus >=6.5% - Consistent with diagnosis of Di abetes Mellitus In the absence of hyperglycemia (i.e. pl asma glucose > 200 mg/dL) or classic symptoms of hyperglycemia a repeat measu rement of HbA1c should be performed on a separate sample to confirm the diagnos is. Diagnosis and Classification of Diabetes Mellitus, Diabetes Care 2013; 36: Suppl. 1, S67-74 Est Avg Gluc 111 mg/dL [facility] Comment: eAG equivalents for HbA1c percentages: HbA1c(%) ?eAG(mg/dL) 6.0 ?126 6.5 ?140 7.0 ?154 7.5 ?169 8.0 ?183 8.5 ?197 9.0 ?212 9.5 ?226 10.0 ? 240 Limitations: The eAG calculation has not been validated on women, individuals below 18 years old and above 70 years old, and individuals with hemoglobinopathies. Additional resources are available on e ADA website. Shyam DHALIWAL, Fely J, Brendan R, et al. ??Tr anslating the A1C assay into estimated average glucose values. ??Diabetes Care 2008:31(8):2036-5219. Specimen Anatomical Collection Method Collection Time Receive d Time (Source) Location / / Volume Laterality Blood specimen 06/06/2017 10:48 8 (specimen) AM EDT 10:58 AM EDT Resulting Agency Comment Spec In Lab Sydney Monique MD CHEMISTRY ORDERABLES Performing Organization Address City/State/[place] [address] Lipid Panel (06/06/2017 10:48 AM EDT) athologist Signature Chol, Total 237 mg/dL [facility] Comment: Lower Risk: <200 mg/dL Average Risk: 200-239 mg/dL Higher Risk: >zg=142 mg/dL Triglycerides 123 mg/dL [facility] Comment: Average Risk/Lower Risk: <150 mg/dL Borderline High Risk: 150-199 mg/dL High Risk: 200-499 mg/dL Very High Risk: >az=763 mg/dL HDL 50 mg/dL [facility] Comment: Males: ?? Higher Risk: <40 mg/dL Females: ?? HIgher Risk: <50 mg/dL LDL Cholesterol 162 mg/dL [facility] Comment: Lowest Risk: <100 mg/dL Lower Risk: 100-129 mg/dL Borderline High Risk: 130-159 mg/dL High Risk: 160-189 mg/dL Very High Risk: >wr=095 mg/dL Chol/HDL Ratio 4.7 ratio [facility] Lipid Interpretation See Note [facility] Comment: Lipid management should be guided by a p atient? s ASCVD risk, goals and preferences. ACC/AHA Guidelines recommend high intens ity statin if clinical ASCVD or LDL greater than or equal to 190 mg/dL. http://Augusturl.com/ZMT-OEE-Oxuleusvn Adults aged 40-75 with LDL 70-189 mg/dL should have their 10 year ASCVD risk estimated with the ACC/AHA ASCVD risk es timator http://tools.acc.org/GFZBW-Senp-Bsislbwy r/ Statin should be discussed if risk great er than or equal to 7.5% in non-diabetics. With diabetes, moderate i ntensity statin is recommended if risk less than 7.5%, high intensity if risk g reater than or equal to 7.5%. Annual lipid monitoring on statins is no t necessary. Evaluate secondary causes of Triglycerid es greater than 500 mg/dL or LDL greater than 190 mg/dL: See table 6 of A CC/AHA Guideline. Lifestyle modification is a critical com ponent of ASCVD risk reduction. Specimen Anatomical Collection Method Collection Time Receive d Time (Source) Location / / Volume Laterality Blood specimen 06/06/2017 10:48 8 (specimen) AM EDT 10:58 AM EDT Resulting Agency Comment Spec In Lab Sydney Monique MD CHEMISTRY ORDERABLES Performing Organization Address City/State/[place] [address] (ABNORMAL) Comprehensive metabolic panel (non-fasting) (06/06/2017 10:48 AM EDT) P athologist Signature Glucose Lvl 104 65 - 199 [facility] mg/dL [facility] Comment: Diabetes: >=200 mg/dL plus symp toms BUN 10 8 - 18 mg/dL [facility] Creatinine 0.80 0.70 - 1.20 mg/dL [facility] Sodium 140 135 - 145 mmol/L [facility] Potassium 3.8 3.5 - 5.0 mmol/L [facility] Comment: Please note: ??Patients with WBC >100,00 0 may have falsely elevated Potassium levels. ??For accurate Potassium quantif ication in these patients send serum separator tube (gold top) for subsequent determinations. ??Contact the Clinical Chemistry Laboratory if there are any qu estions. Chloride 100 98 - 107 mmol/L [facility] CO2 28 22 - 31 mmol/L [facility] Anion Gap 12 5 - 15 mmol/L [facility] Calcium 9.4 8.5 - 10.5 mg/dL [facility] Total Protein 8.3 (H) 6.1 - 8.0 gm/dL [facility] Albumin 4.5 3.2 - 5.2 gm/dL [facility] AST 14 0 - 30 unit/L [facility] ALT 18 0 - 30 unit/L [facility] Alk Phos 59 40 - 104 unit/L [facility] Total Bilirubin 0.4 0.2 - 1.3 mg/dL [facility] Estimated GFR >60 >=60 [facility] Comment: The reported eGFR should be multiplied b y 1.2 for patients. The MDRD is not an appropriate measure o f renal function for patients with body mass extremes or in patients with acute kidney failure. http://[employer]/DHnkdep http://[employer]/DHMCnkf Specimen Anatomical Collection Method Collection Time Receive d Time (Source) Location / / Volume Laterality Blood specimen 06/06/2017 10:48 8 (specimen) AM EDT 10:58 AM EDT Resulting Agency Comment Spec In Lab Sydney Monique MD CHEMISTRY ORDERABLES Performing Organization Address City/State/[place] [address] documented in this encounter Visit Diagnoses Diagnosis Obesity, Class II, BMI 35-39.9, with com orbidity Obesity, unspecified documented in this encounter Care Teams Airframe And Powerplant Technician Relationship Specialty Start Date End Date Karly Rijoas APRN PCP - General Family Medicine 08/10/16 09/29/17 [address] [place] [address] documented as of this encounter
--- OUTSIDE RECORDS SUMMARY | 2022-01-13 19:39 | XMS_ITS | Encounter Summary ---
:1970 [place] [address] Care Team Providers Name Role Phone Beulah Karlyjana GILLIAM Primary Care Provider [phone] Reason for Visit Auth/Cert Specialty Diagnoses / Procedures Referred By Contact Refer red To Contact Diagnoses MORBID OBESITY Procedures PRO LAP GASTRIC BYPASS/MED-EN-Y PRO UPPER GI ENDOSCOPY, DIAGNOSTIC @LAPAROSCOPIC GASTROPLASTY, (WRVU 29.4) ENDOSCOPY, UPPER GI, DIAGNOSTIC, WITH OR WITHOUT SPECIMENS Referral ID Status Reason Start Date Expiration Date Visits Requ ested Visits Authorized [id number] 1 1 Encounter Details Date Type Department Care Team Description 07/11/2017 - Hospital Encounter 4 [facility] Mike Monique Sa [facility] 07/13/2017 [facility] Talha De La Torre MD [facility] [address] [place] GENER[place]ERY [id number] [place] [address] [phone] Social History Tobacco Use Types Packs/Day Years [...] criteria. She has undergone an EGD at [facility]. This showed a small hiatal hernia and [...] changed to oral pain medications and the DYNAMO TENDER was discontinued on POD# 1. She was [...] Pertinent Lab Data: Recent Labs 05/19/18 0632 05/18/18 0446 WBC 9.8* 14.4* HGB 14.5 13.8 [...] mouth once a week for 24 doses. [id number] Units Quantity: 12 capsule Refills: 1 levonorgestrel [...] LD; Clementina Casanova APRN [facility] [phone] 11/08/2017 10:00 AM Aleksandra Luna LD; Clementina Casanova APRN [facility] [phone] Instructions Given to Patient at Discharge: BARIATRIC SURGERY DISCHARGE INFORMATION BARIATRIC SUPPORT TEAM CONTACT NUMBERS (Mon-Fri 8am - 5pm): General Surgery and Bariatric Surgery [phone] Bariatric Surgeons: King Grimes and Melody [phone] Career Development Coordinator/Teacher: [phone] Dietitians: [phone] Outside of regular business hours, including weekends and holidays: Ask for General Surgery resident production line manager [phone] FOR EMERGENCIES: CALL [phone] (trouble breathing, chest [...] weeks at the General Surgery Outpatient Clinic (Bilingual Kindergarten Teacher 4L, [facility]). Future Appointments Date Time Provider Department Center [...] Karly Riojas APRN [address] / [facility] [address] documented in this encounter Discharge Instructions Patient InstructionsMayra Griggs MD - 07/13/2017 8:46 AM EDT BARIATRIC SURGERY DISCHARGE INFORMATION BARIATRIC SUPPORT TEAM CONTACT NUMBERS (Mon-Fri 8am - 5pm): General Surgery and Bariatric Surgery [phone] Bariatric Surgeons: King Grimes and Melody [phone] Career Development Coordinator/Teacher: [phone] Dietitians: [phone] Outside of regular business hours, including weekends and holidays: Ask for General Surgery resident production line manager [phone] FOR EMERGENCIES: CALL [phone] (trouble breathing, chest [...] weeks at the General Surgery Outpatient Clinic (Bilingual Kindergarten Teacher 4L, [facility]). Future Appointments Date Time Provider Department Center [...] 200 on more than 3 checks, call [facility] or diabetic specialist for recommendations. For patients on insulin and oral diabetic medications: If blood sugar is over 200 on 3 checks, call your primary care doctor or diabetic specialist for recommendations. ?? Follow up with primary care provider or news specialist in 1-2 weeks in order to [...] NEURO: Pain control with IV tylenol and DYNAMO TENDER Dilaudid; transition to elixir Tylenol and Oxycodone. [...] through right PIV @ 105mL/hr with Dilaudid DYNAMO TENDER @ 0.2/7/4. Abdominal lap sites (5) with [...] with lap med en y gastric bypass. [facility] Bariatric Surgery Evaluation ? Reason for [...] She has attended a Introduction to the [facility] Bariatric Surgery Program seminar, a comprehensive two hour meeting that provides a program overview, education on bariatric surgeries offeredat [facility], risks and benefits, as well as patient expectations and follow up. [facility] Bariatric Surgery Program Educational seminars viewed 2. Pre-operative programmatic evaluations: PCP evaluation and letter of support to proceed with surgery, BSP labwork, and psychological evaluation. 3. Bariatric Surgery Program evaluations with RD today. 4. Program start weight: 239/BMI 38.6 WT at visit #1: Wt & BMI By Encounter Date ? Clinical Support from 04/04/2017 in [facility] ?? Weight ?? 112.5 kg (248 lb 1.6 oz) 1 04/04/2017816 ?? BMI ?? 38.85 1 04/04/2017816 ?? 5. Gallbladder status: intact, not studied. [...] Program ?? - Attended Introduction to the [facility] Bariatric Surgery Program seminar, a comprehensive two hour meeting that provides a program overview, education on bariatric surgeries offered at [facility], risks and benefits, as well as patient expectations and follow up: 07/27/16 [facility] BSP Educational seminars viewed: 03/05/17 Grades on post-testin% x 1; 100% x 2 The [facility] Educational Handbook is provided at preoperative visit #1. 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 Has two special needs children. [...] ] hematuria [] history of renal calculi CONTROLS DESIGN ENGINEER: [ ] LMP: [ ] menorrhagia [ [...] Support from 04/04/2017 in [facility] ?? Weight ?? 112.5 kg (248 lb [...] of treatment of obesity and of the [facility] Bariatric Surgery Program: Ms.. Munguia is aware that other treatments for obesity are available, ie, dietary, behavior modification, weight loss medications, exercise as well as surgical weight loss methods. The risks and benefits of bariatric surgery, including gastric bypass and sleeve gastrectomy are discussed at every Int roduction to the [facility] Bariatric Surgery Program meeting and all Educational [...] intermittent heartburn - to be scheduled at [facility] -Above start weight, discussed 3-5# weight loss - Educational classes - Final meeting with surgeon to confirm procedure, and review risks/benefits - CBC and CMP within 3 months of surgery, per MBSAQIP accredited bariatric center guidelines --> to be [...] as Appropriate) 07/12/17227 Interdisciplinary Rounds/Family Conf Participants briefcase sewer;nursing;physician Plan of Care - Therese Leonard RN - 07/12/2017 5:11 PM EDT Problem: Patient Care Overview Goal: Plan of Care Review Outcome: Ongoing (Interventions Implemented as Appropriate) 07/12/1722707/12/17 0849 Coping/Psychosocial Plan Of Care Reviewed With -- patient Plan of Care Review Progress improving -- OUTCOME EVALUATION NOTE: OUTCOME SUMMARY: DYNAMO TENDER D/C'd later in the morning. Liquid Oxy [...] Specific Information: none Health/Prescription Coverage: Primary Insurance: [employer]IG[employer] Secondary Insurance: N/A Prescription Coverage: yes Preferred Pharmacy: [facility] Primary Care Provider: Karly Riojas APRN [phone] Patient/Caregiver Goals of Treatment: weight loss and [...] transition of care planning. RANJITH Angel Pager: [phone] Plan of Care - George Mcfarland RN - 07/12/2017 2:36 AM EDT Problem: Patient Care Overview Goal: Plan of Care Review Outcome: Ongoing (Interventions Implemented as Appropriate) 05227 Coping/Psychosocial Plan Of Care Reviewed With patient Plan of Care Review Progress improving OUTCOME EVALUATION NOTE: OUTCOME SUMMARY: Nilda had a good night sleep.Pt Alert and oriented.RA. Pt is sinus tachy and elevated BP. Notified agriculture internship. Pt c/o pain to back. Pain managed by DYNAMO TENDER dilaudid.Pt is up with assist to toilet [...] as Appropriate) 07/12/17227 Interdisciplinary Rounds/Family Conf Participants briefcase sewer;nursing;physician Op Note - Sydney Monique MD - 07/11/2017 2:32 PM EDT [facility] Operative Note Patient Name: Lilliam Munguia : [id number] MR#: [id number] Case Date: 07/11/2017 Surgeon: Surgeon(s) and Role: [...] distal bowel was chosen to create the usjy-am-vacw jejunojejunostomy. The duodenal, afferent limb was approximated [...] suture in two layers with a 30 [place] Bougie (blunt-tipped) in place. The Bougie was [...] W/ AM EDT MED-EN-Y CONSTRUCTION (WRVU 29.4) CYBER ANALYST SCAN 07/11/2017 12:00 Res ults for this AM EDT procedure are i n the results section. documented in this encounter Results (ABNORMAL) Differential, Automated (07/13/2017 6:32 AM EDT) [facility] gist Method Time Signature Neutrophils % 71.1 % [facility] Neutr Abs (ANC) 6.99 (H) 1.70 - [facility] 6.10 [facility] x10(3)/[facility] LABORATORY Lymphocytes % 20.4 % [facility] Lymphocytes Abs 2.0 0.9 - 3.2 [facility] x10(3)/[facility] LABORATORY Monocytes % 7.7 % [facility] Monocyte Abs 0.8 0.3 - 0.9 [facility] x10(3)/[facility] LABORATORY Eosinophils % 0.3 % [facility] Eosinophils Abs 0.0 0.0 - 0.4 [facility] x10(3)/[facility] LABORATORY Basophils % 0.3 % [facility] Basophils Abs 0.0 0.0 - 0.1 [facility] x10(3)/[facility] LABORATORY Immature Gran % 0.20 % [facility] Comment: Immature granulocytes(IG's)percentage an d absolute count will include metamyelocytes, myelocytes, and promyelo cytes. Blood smears from CBCs yielding IG's will be scanned manually for concor dance. If this scan disagrees with the automated IG or if promyelocytes are not ed, a manual differential will be performed. Sade Gran Abs 0.02 0.00 - 0.04 x10(3)/[facility] LABORATORY Specimen Anatomical Collection Method Collection Time Receive d Time (Source) Location / / Volume Laterality Blood specimen 07/13/2017 6:32 AM 018 6:53 (specimen) EDT AM EDT Resulting Agency Comment Spec In Lab Mayra Carranza MD HEMATOLOGY ORDERABLES Performing Organization Address City/State/[place] [address] (ABNORMAL) Hemogram (07/13/2017 6:32 AM EDT) P athologist Signature WBC 9.8 (H) 4.0 - 9.5 [facility] x10(3)/[facility] LABORATORY RBC 4.64 4.00 - [facility] 5.21 [facility] x10(6)/[facility] LABORATORY Hemoglobin 14.5 11.7 - [facility] 15.5 gm/dL [facility]OR[facility] Hematocrit 43.0 35.7 - [facility] 45.8 % [facility] MCV 92.7 82.6 - [facility] 94.4 [facility] LABORATORY MCH 31.3 27.1 - [facility] 32.0 pg [facility] MCHC 33.7 31.7 - [facility] 35.0 gm/dL [facility] Platelets 272 145 - 357 [facility] x10(3)/[facility] LABORATORY RDWSD 43.4 37.0 - [facility] 46.0 [facility] LABORATORY RDWCV 12.8 11.5 - [facility] 14.1 % [facility] MPV 9.8 7.6 - 12.9 [facility] LABORATORY nRBC % Auto 0.0 % [facility] nRBC Abs Auto 0.000 0.000 - [facility] 0.000 [facility] x10(3)/[facility] LABORATORY Specimen Anatomical Collection Method Collection Time Receive d Time (Source) Location / / Volume Laterality Blood specimen 07/13/2017 6:32 AM 018 6:53 (specimen) EDT AM EDT Resulting Agency Comment Spec In Lab Mayra Carranza MD HEMATOLOGY ORDERABLES Performing Organization Address City/State/ZIP Code Phon e Number [address] (ABNORMAL) Phosphorus (07/13/2017 6:32 AM EDT) P athologist Signature Phosphorus 2.3 (L) 2.5 - 4.5 [facility] mg/dL [facility] Specimen Anatomical Collection Method Collection Time Receive d Time (Source) Location / / Volume Laterality Blood specimen 07/13/2017 6:32 AM 018 6:53 (specimen) EDT AM EDT Resulting Agency Comment Spec In Lab Mayra Carranza MD CHEMISTRY ORDERABLES Performing Organization Address City/[facility]/ZIP Code Phon e Number [address] Magnesium (07/13/2017 6:32 AM EDT) P athologist Signature Magnesium 0.79 0.69 - 1.07 [facility] mmol/L [facility] Specimen Anatomical Collection Method Collection Time Receive d Time (Source) Location / / Volume Laterality Blood specimen 07/13/2017 6:32 AM 018 6:53 (specimen) EDT AM EDT Resulting Agency Comment Spec In Lab Mayra Carranza MD CHEMISTRY ORDERABLES Performing Organization Address City/[facility]/ZIP Code Phon e Number [address] (ABNORMAL) Basic Metabolic Panel (non-fasting) (07/13/2017 6:32 AM EDT) P athologist Signature Glucose Lvl 96 65 - 199 [facility] mg/dL [facility] Comment: Diabetes: >=200 mg/dL plus symp toms BUN 5 (L) 8 - 18 mg/dL [facility] LABORATORY Creatinine 0.55 (L) 0.70 - 1.20 mg/dL [facility] LABOR[facility]ORY Sodium 139 135 - 145 [...] estions. Chloride 101 98 - 107 mmol/L [facility] CO2 24 22 - 31 mmol/L [facility] Anion Gap 14 5 - [...] or in patients with acute kidney failure. http://360incentives.com/DHnkdep http://360incentives.com/DHMCnkf Specimen Anatomical Collection Method Collection Time Receive d Time (Source) Location / / Volume Laterality Blood specimen 07/13/2017 6:32 AM 018 6:53 (specimen) EDT AM EDT Resulting Agency Comment Spec In Lab Mayra Carranza MD CHEMISTRY ORDERABLES Performing Organization Address City/State/[place] [address] (ABNORMAL) Differential, Automated (07/12/2017 4:46 AM EDT) [facility] Method Time Signature Neutrophils % 84.7 % [facility] Neutr Abs (ANC) 12.22 (H) 1.70 - [facility] 6.10 [facility] x10(3)/[facility] L LABORATORY Lymphocytes % 7.5 % [facility] Lymphocytes Abs 1.1 0.9 - 3.2 [facility] x10(3)/[facility] LABORATORY Monocytes % 7.1 % [facility] Monocyte Abs 1.0 (H) 0.3 - 0.9 [facility] x10(3)/[facility] LABORATORY Eosinophils % 0.0 % [facility] Eosinophils Abs 0.0 0.0 - 0.4 [facility] x10(3)/[facility] LABORATORY Basophils % 0.1 % [facility] Basophils Abs 0.0 0.0 - 0.1 [facility] x10(3)/[facility] LABORATORY Immature Gran % 0.60 % [facility] Comment: Immature granulocytes(IG's)percentage an d absolute count will include metamyelocytes, myelocytes, and promyelo cytes. Blood smears from CBCs yielding IG's will be scanned manually for concor dance. If this scan disagrees with the automated IG or if promyelocytes are not ed, a manual differential will be performed. Sade Gran Abs 0.08 (H) 0.00 - 0.04 x10(3)/[facility] LABORATORY Specimen Anatomical Collection Method Collection Time Receive d Time (Source) Location / / Volume Laterality Blood specimen 07/12/2017 4:46 AM 018 4:50 (specimen) EDT AM EDT Resulting Agency Comment Spec In Lab Mayra Carranza MD HEMATOLOGY ORDERABLES Performing Organization Address City/State/[place] [address] (ABNORMAL) Hemogram (07/12/2017 4:46 AM EDT) Analysis Performed At Patho logist Time Signature WBC 14.4 (H) 4.0 - 9.5 [facility] x10(3)/[facility] LABORATORY RBC 4.42 4.00 - [facility] 5.21 [facility] x10(6)/[facility] LABORATORY Hemoglobin 13.8 11.7 - [facility] 15.5 gm/dL [facility] Hematocrit 41.5 35.7 - [facility] 45.8 % [facility] MCV 93.9 82.6 - [facility] 94.4 [facility] LABORATORY MCH 31.2 27.1 - [facility] 32.0 pg [facility] MCHC 33.3 31.7 - [facility] [place] 35.0 gm/dL [facility] Platelets 281 145 - 357 [facility] x10(3)/[facility] LABORATORY RDWSD 43.1 37.0 - [facility] [place] 46.0 [facility] LABORATORY RDWCV 12.4 11.5 - [facility] 14.1 % [facility] LABORATORY MPV 9.6 7.6 - 12.9 [facility] LABORATORY nRBC % Auto 0.0 % [facility] nRBC Abs Auto 0.000 0.000 - [facility] [place] 0.000 [facility] x10(3)/[facility] LABORATORY Specimen Anatomical Collection Method Collection Time Receive d Time (Source) Location / / Volume Laterality Blood specimen 07/12/2017 4:46 AM 018 4:50 (specimen) EDT AM EDT Resulting Agency Comment Spec In Lab Mayra Carranza MD HEMATOLOGY ORDERABLES Performing Organization Address City/[facility]/ZIP Code Phon e Number [address] Phosphorus (07/12/2017 4:46 AM EDT) P athologist Signature Phosphorus 3.6 2.5 - 4.5 [facility] mg/dL [facility] LABOR[facility]ORY Specimen Anatomical Collection Method Collection Time Receive d Time (Source) Location / / Volume Laterality Blood specimen 07/12/2017 4:46 AM 018 4:49 (specimen) EDT AM EDT Resulting Agency Comment Spec In Lab Mayra Carranza MD CHEMISTRY ORDERABLES Performing Organization Address City/[facility]/ZIP [facility] Phon e Number [address] Magnesium (07/12/2017 4:46 AM EDT) P athologist Signature Magnesium 0.80 0.69 - 1.07 [facility] mmol/L [facility] LABOR[facility]ORY Specimen Anatomical Collection Method Collection Time Receive d Time (Source) Location / / Volume Laterality Blood specimen 07/12/2017 4:46 AM 018 4:49 (specimen) EDT AM EDT Resulting Agency Comment Spec In Lab Mayra Carranza MD CHEMISTRY ORDERABLES Performing Organization Address City/[facility]/ZIP Code Phon e Number [address] (ABNORMAL) Glucose, fasting (07/12/2017 4:46 AM EDT) P athologist Signature Glucose 112 (H) 65 - 99 [facility] Fasting mg/dL [facility] Comment: ?Fasting* Glucose Interpretive C riteria [...] of Diabetes Mellitus, Position Statement from the [place] [employer]. ??Diabete s Care, Volume 33, Supplement 1, Feb 2009 Specimen Anatomical Collection Method Collection Time Receive d Time (Source) Location / / Volume Laterality Blood specimen 07/12/2017 4:46 AM 018 4:49 (specimen) EDT AM EDT Resulting Agency Comment Spec In Lab Mayra Carranza MD CHEMISTRY ORDERABLES Performing Organization Address City/[facility]/[place] [address] (ABNORMAL) Creatinine (07/12/2017 4:46 AM EDT) Analysis Performed At Patho logist Time Signature Creatinine 0.68 (L) 0.70 - [facility] [place] 1.20 mg/dL [facility] Estimated GFR >60 >=60 [facility] Comment: The reported eGFR should be multiplied b y 1.2 for patients. The MDRD is not an appropriate measure o f renal function for patients with body mass extremes or in patients with acute kidney failure. http://360incentives.com/DHnkdep http://360incentives.com/DHMCnkf Specimen Anatomical Collection Method Collection Time Receive d Time (Source) Location / / Volume Laterality Blood specimen 07/12/2017 4:46 AM 018 4:49 (specimen) EDT AM EDT Resulting Agency Comment Spec In Lab Mayra Carranza MD CHEMISTRY ORDERABLES Performing Organization Address [facility] Phon e Number [address] BUN (07/12/2017 4:46 AM EDT) P athologist Signature BUN 8 8 - 18 [facility] mg/dL [facility] Specimen Anatomical Collection Method Collection Time Receive d Time (Source) Location / / Volume Laterality Blood specimen 07/12/2017 4:46 AM 018 4:49 (specimen) EDT AM EDT Resulting Agency Comment Spec In Lab Mayra Carranza MD CHEMISTRY ORDERABLES Performing Organization Address [facility] Phon e Number [address] Electrolytes panel (07/12/2017 4:46 AM EDT) P athologist Signature Sodium 138 135 - 145 [facility] mmol/L [facility] Potassium 4.0 3.5 - 5.0 [facility] mmol/L [facility] Comment: Please note: ??Patients with WBC >100,00 0 may have falsely elevated Potassium levels. ??For accurate Potassium quantif ication in these patients send serum separator tube (gold top) for subsequent determinations. ??Contact the Clinical Chemistry Laboratory if there are any qu estions. Chloride 101 98 - 107 mmol/L [facility] CO2 23 22 - 31 mmol/L [facility] Anion Gap 14 5 - 15 mmol/L [facility] LABORATORY Specimen Anatomical Collection Method Collection Time Receive d Time (Source) Location / / Volume Laterality Blood specimen 07/12/2017 4:46 AM 018 4:49 (specimen) EDT AM EDT Resulting Agency Comment Spec In Lab Mayra Carranza MD CHEMISTRY ORDERABLES Performing Organization Address City/State/[place] [address] SCAN DOC: CYBER ANALYST (07/11/2017 12:00 AM EDT) Anatomical Region Laterality Modality Other Narrative 07/11/2017 12:00 AM EDT This result has an attachment that is no t available. Ordered by an unspecified provider. Scanning Provider MEDIA MGR SCAN EXT ORDR/RSLT documented in this encounter Visit Diagnoses Diagnosis S/P gastric bypass Bariatric surgery status documented in this encounter Administered Medications Inactive Administered Medications - up to 3 most recent administrations Medication Order MAR Action Action Date Dose Rate Site acetaminophen (OFIRMEV) Given 07/12/2017 5:32 AM 1,000 mg 400 mL/hr injection 1,000 mg EDT 1,000 mg, Intravenous, at 400 mL/hr, EVERY 6 HOURS SCHEDULED, 4 doses, First dose on Sat07/11/17 at 1845, Last dose on Sat07/12/17 at 1200, Maximum dose of acetaminophen is 4000 mg from all sources in 24 hours., Recovery (Recovery-Hospital Unit), Routine, Is ketorolac (Toradol) IV contraindicated? Yes, Can this patient tolerate oral medications or suppositories? No Given 07/11/2017 11:44 PM EDT 1,000 mg 400 mL/hr Given 07/11/2017 7:34 PM EDT 1,000 mg 400 mL/hr acetaminophen (TYLENOL) 650 mg/20.3 mL oral Given 06/25 12:04 PM EDT 650 mg liquid 650 mg 650 mg, Oral, EVERY 4 HOURS SCHEDULED, First dose on Sat07/12/17 at 1200, Until Discontinued, Maximum dose of acetaminophen is 4,000 mg from all sources in 24 hours., Routine acetaminophen (TYLENOL) tablet 650 mg Given 07/13/2017 5:05 AM EDT 650 mg 650 mg, Oral, EVERY 4 HOURS, [...] at 1206, Wheezing, Shortness of Breath, Routine buPROPion (WELLBUTRIN) tablet 100 mg Given 07/13/2017 8:56 AM EDT 100 mg 100 mg, Oral, 3 TIMES DAILY, First dose on Sat07/12/17 at 0900, Until Discontinued, crush, Routine Given 07/12/2017 8:27 PM EDT 100 mg Given 07/12/2017 4:14 PM EDT 100 mg diphenhydrAMINE (BENADRYL) injection 25 mg Given 07/13/2017 1:31 AM EDT 25 mg 25 mg, Intravenous, EVERY 6 HOURS PRN, Starting on Genia 07/11/17 at 1825, Until 07/13/17 at 0740, Itching, Recovery (Recovery-Hospital Unit), Routine enoxaparin (LOVENOX) injection 40 mg Given 07/11/2017 10:00 AM EDT 40 mg 40 mg, Subcutaneous, ONCE, 1 dose, On Genia 07/11/17 at 1000, Please give in preop, Routine enoxaparin (LOVENOX) injection 40 mg Given 07/13/2017 8:57 AM EDT 40 mg 40 mg, Subcutaneous, 2 TIMES DAILY, First dose on Genia 07/11/17 at 2100, Until Discontinued, Recovery (Recovery-Hospital Unit), Routine Given 07/12/2017 8:28 PM EDT 40 mg Abdom inal Tissue Given 07/12/2017 8:52 AM EDT 40 mg HYDROmorphone (DILAUDID) 1 New Syringe/Cartridge 07/11/2017 3:07 PM E DT 50 mg mg/mL DYNAMO TENDER 50 mL Intravenous, DYNAMO TENDER ONLY, Starting on Genia 07/11/17 at 1515, Until Sat07/12/17 at 0928, Recovery (Recovery-Hospital Unit) lactated Ringers infusion 1,000 New Bag 07/11/2017 10:14 AM ED T 1,000 mLs 100 mL/hr mL 1,000 mL, at 100 mL/hr, Intravenous, CONTINUOUS, Starting on Genia 07/11/17 at 1000, Until Genia 07/11/17 at 1820, Day of Surgery (Day of Procedure) lactated Ringers infusion New Bag 07/13/2017 6:05 AM EDT 105 mL/hr 105 mL/hr 105 mL/hr, Intravenous, CONTINUOUS, Starting on Genia 07/11/17 at 1515, Until 07/13/17 at 0740, Recovery (Recovery-Hospital Unit) New Bag 07/12/2017 8:34 PM EDT 105 mL/hr 105 mL/hr New Bag 07/12/2017 1:35 AM EDT 105 mL/hr 105 mL/hr lidocaine (XYLOCAINE) 10 mg/mL (1 %) injection Given 0 07/11/2017 10:15 AM EDT 3 mg 3 mg 3 mg (0.3 mL), Subcutaneous, ONCE PRN, 1 dose, Starting on Genia 07/11/17 at 0931, Until Genia 07/11/17 at 1015, for discomfort with PIV insertion, Day of Surgery (Day of Procedure), Routine lidocaine (XYLOCAINE) 10 mg/mL (1 %) inj [...] dose on Sat07/12/17 at 0900, Until Discontinued, crushien, Routine Given 07/12/2017 8:27 PM EDT 50 mg Given 07/12/2017 8:52 AM EDT 50 mg ondansetron (ZOFRAN) injection 4 mg Given 07/11/2017 5:25 PM EDT 4 mg 4 mg, Intravenous, EVERY 30 MIN PRN, Starting on Genia 07/11/17 at 1443, Until Genia 07/11/17 at 1820, Nausea, May repeat 4 mg [...] with o ndansetron, Recovery (Recovery-Hospital Unit), Routine promethazine (PHENERGAN) injection 12.5 mg Given 07/11/2017 5:38 PM EDT 12.5 mg 12.5 mg, Intravenous, EVERY 30 MIN PRN, 2 doses, Starting on Genia 07/11/17 at 1443, Until Genia 07/11/17 at 1820, Nausea, VESICANT - Dilute with a minimum of 10 mL saline. LARGE VEIN only. Inject over 10 minutes into the farthest port of a running IV infusion. Remain with the patient and STOP infusion immediately if patient reports burning. Avoid extravasation. If multiple antiemetics are ordered, use ondansetron first and if ineffective use prochlorperazine second and if ineffective use promethazine., PACU Recovery, Routine sodium chloride 0.9 % flush 5 [...] 07/13/2017 acetaminophen (OFIRMEV) injection 1,000 mg (CANCELED) 1933 (Given - Provider: George Mcfarland RN)2344 (Given [...] (C ANCELED) 1204 (Given - Provider: Therese Leonard RN) 650 mg, Oral, EVERY 4 HOURS [...] Nathalia brunson RN)0505 (Given - Provider: Nathalia Hilton, JOHNNIE)1000 (Due - Provider: Norma Carvalho [facility]) 650 mg, Oral, EVERY 4 HOURS, First dose on Sat07/12/17 at 1500, Until Discontinued, Maximum dose of acetaminophen is 4000 mg from all sources in 24 hours. Crush prior to administration, Routine buPROPion (WELLBUTRIN) tablet 100 mg 085 2 (Given - Provider: Therese Leonard RN)1614 (Given - Provider: Therese Leonard RN)2027 (Given - Provider: Bronwyn Lucas RN) 0856 (Given - Provider: Cinthya frederick RN) 100 mg, Oral, 3 TIMES DAILY, First dose on Sat07/12/17 at 0900, Until Discontinued, crush, Routine enoxaparin (LOVENOX) injection 40 mg (COMPLETED) 1000 (Given - Provider: Clementina Blanco, JOHNNIE) 40 mg, Subcutaneous, ONCE, 1 dose, Genia at 1000, Please give in preop, Routine enoxaparin (LOVENOX) injection 40 mg 2029 (Given - Pro vider: George Mcfarland RN) 0852 (Given - Provider: Therese Leonard RN)2027 (Given - Provider: Bronwyn Lucas RN) 0857 (Given - Provider: Cinthya frederick, JOHNNIE) 40 mg, Subcutaneous, 2 TIMES DAILY, Firs t dose on Genia 07/11/17 at 2100, Until Discontinued, Recovery (Recovery-Hospital Unit), Routine losartan (COZAAR) tablet 50 mg 851 (Giv en - Provider: Therese Leonard RN)2026 (Given - Provider: Bronwyn Mckeon V, JOHNNIE) 0856 (Given - Provider: Cinhtya Pickens RN) 50 mg, Oral, 2 TIMES DAILY, First dose o n Sat07/12/17 at 0900, Until Discontinued, crush, Routine pantoprazole (PROTONIX) injection 40 mg 1934 (Given - Provider: George Mcfarland RN) 0851 (Given - Provider: Therese Leonard RN) 0851 (Give n - Provider: Cinthya Pickens RN) 40 mg, Intravenous, DAILY, First dose on [...] Therese Leonard, JOHNNIE)2027 (Given - Provider: Bronwyn Lucas RN)2030 (Not Given - Provider: Bronwyn Lucas RN - Reason: See comment - Comment: MIVF infusing) 0857 (Given - Provider: Cinthya Pickens, RN) 5 mL, Intravenous, 2 TIMES DAILY, First dose on Genia 07/11/17 at 2100, Until Discontinued, Recovery (Recovery-Hospital Unit), Routine Continuous Medication Order 07/11/2017 07/12/2017 07/13/2017 HYDROmorphone (DILAUDID) 1 mg/mL DYNAMO TENDER 50 mL (CANCELED) 1507 (New Syringe/Cartridge - Provider: Gisella Gold, RN) 0949 (Stopped - Provider: Therese Leonard, JOHNNIE) Intravenous, DYNAMO TENDER ONLY, Starting Genia 07/11 at 1515, Until 07/12/17 at 0928, Recovery (Recovery-Hospital Unit) lactated Ringers infusion 1,000 mL (CANCELED) 1014 (Ne w Bag - Provider: Chloe Mondragon, JOHNNIE)1506 (Stopped - Provider: Gisella Gold, RN) 1,000 mL, at 100 mL/hr, Intravenous, CON TINUOUS, Starting Genia 07/11/17 at 1000, Until Genia 07/11/17 at 1820, Day of Surgery (Day of Procedure) lactated Ringers infusion (CANCELED) 1506 (New Bag - P rovider: Gisella Gold, JOHNNIE) 0135 (New Bag - Provider: George tran RN)2033 (New Bag - Provider: Bronwyn Lucas RN) 0605 (New Bag - Provider: Nathalia Hilton, JOHNNIE)0858 (Stopped - Provider: Cinthya Pickens, JOHNNIE) 105 mL/hr, at 105 mL/hr, Intravenous, CO NTINUOUS, Starting Genia 07/11/17 at 1515, Until 07/13/17 at 0740, Recovery (Recovery-Hospital Unit) PRN Medication Order 07/11/2017 07/12/2017 07/13/2017 albuterol (PROVENTIL) nebulizer solution 2.5 mg 0948 (Given - Provider: Therese Leonard, JOHNNIE) 2.5 mg, Nebulization, EVERY 2 HOURS PRN, [...] (C OMPLETED) 1015 (Given - Provider: Chloe Mondragon, JOHNNIE) 3 mg (0.3 mL), Subcutaneous, ONCE PRN, [...] Routine ondansetron (ZOFRAN) injection 4 mg (CANCELED) 1725 (G iven - Provider: Gisella Gold, RN) 4 mg, Intravenous, EVERY 30 MIN PRN, Sta rting Genia 07/11/17 at 1443, Until Genia 07/11/17 at 1820, Nausea, May repeat 4 mg [...] mg 0956 (Given - Provider: Therese Leonard, JOHNNIE)1614 (Given - Provider: Therese Leonard, JOHNNIE)2026 (Given - Provider: Bronwyn Lucas RN) 5-10 mg, Oral, EVERY 4 HOURS [...] Routine promethazine (PHENERGAN) injection 12.5 mg (CANCELED) 173 (Given - Provider: Gisella Gold RN) 12.5 mg, Intravenous, EVERY 30 MIN PRN, 2 doses, Starting Genia 07/11/17 at 1443, Until Genia 07/11/17 at 1820, Nausea, VESICANT - Dilute with [...] Routine documented in this encounter 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
[2022-01-15 13:06] LABS: COVID-19 RT-PCR UVMMC Result Negative (Negative)
== END 2022-01-13 19:38 | disposition home or self-care (01) ==
LOC: LBN 19:37
PROVIDERS: PCP Nurse Practitioner Family; Visit Provider Physician Assistant Medical
DX: J02.9 Acute pharyngitis, unspecified (principal); Z20.822 Contact with and (suspected) exposure to COVID-19
CPT/HCPCS: U0003; 87070

== ENCOUNTER 2022-07-05 01:17 | Outpatient (CLI) | payer BC, SELFPAY ==
--- NOTE | 2022-07-05 15:44 | DI.MAMMO_ITS ---
Exam(s) MAMMO SCREENING EXAM: MAMMO SCREENING CLINICAL HISTORY: SCREENING, Z12.31. TECHNIQUE: Bilateral full field digital CC and MLO mammographic images were obtained with 3D tomosyn thesis and utilizing computer aided detection (CAD). COMPARISON: Prior mammograms were reviewed. FINDINGS: The fibroglandular tissue pattern is again noted moderately dense. There are no new significant radiograph findings in the right breast. In the left breast there is a subtle suggestion a small nodular density seen on 3D MLO imaging locate d 3 cm in from the nipple and measuring 5 by mm. In the same-left breast on CC 3D imaging there is a similar size nodular density located 4 cm in from the nipple slightly lateral of center and containing a small calcification therein. Further imaging recommended. There are no malignant-appearing microcalcification groups in either breast. There is no significant architectural distortion nor skin thickening-retraction. IMPRESSION: 1. No radiographic evidence of malignancy in the right breast. 2. 2 asymmetric densities-possible nodules in left breast as described above. Spot compression CC an d MLO views as well as breast ultrasound recommended. BI-RADS Category 0 - Assessment Incomplete: Need additional imaging evaluation Breast Density - Category C - Heterogeneously dense Breast density Category C or D implies that the patient has dense breast tissue. Dense breast tissue can make it harder to find cancer on a mammogram. Dense breast tissue is also associated with an incr eased risk of breast cancer. This information about the result of the mammogram report was provided to the patient to raise their awareness. Use this report when you speak with the patient about their risks for breast cancer, which includes their family history. At that time, you may recommend additional screening tests (Ultrasoun d or MRI) as these tests may add significant information. A negative radiographic report should not delay biopsy if a dominant or clinically suspicious mass is present. Up to ten percent of cancers are not identified on mammography. A negative report may reinforce clinical impression. Adenosis and dense breasts may obscure an underlying neoplasm. False positive reports average 6 to 10%. Patient will receive a letter notifying them of these results.
== END 2022-07-05 01:37 ==
LOC: DI 01:18
PROVIDERS: PCP Nurse Practitioner Family; Visit Provider Nurse Practitioner Family
DX: Z12.31 Encounter for screening mammogram for malignant neoplasm of breast (principal); R92.8 Other abnormal and inconclusive findings on diagnostic imaging of breast
CPT/HCPCS: 77063; 77067

== ENCOUNTER 2022-07-13 00:50 | Outpatient (CLI) | payer BC, SELFPAY ==
--- NOTE | 2022-07-13 14:00 | DI.MAMMO_ITS ---
Exam(s) MG MAMMO SCREEN CALL BACK UNI US BREAST LT LIMITED EXAM: MG MAMMO SCREEN CALL BACK UNI and U/S breast LT limited CLINICAL HISTORY: 2 ASYMMETRIC DENSITIES-POSSIBLE NODULES, LT, 3 CM AND 4 CM FROM NIPPLE. TECHNIQUE: Craniocaudal and mediolateral oblique Full Field Digital Mammography views of the left br east with Computer Aided Diagnosis followed by Tomosynthesis and left breast ultrasound. COMPARISON: Comparison is made with prior examinations. FINDINGS: Mammography/Tomosynthesis: Masses/Architectural Distortion: There is a small well-circumscribed nodule in the retroareolar regio n of the left breast laterally. There is a single punctate calcification associated with this. This was present on the prior examination dated 2021 and is unchanged. No other suspicious nodules are s een. No areas of architectural distortion are seen. Microcalcifictions: No suspicious pleomorphic-type are seen. Skin Thickening/Nipple Retraction: None. Limited left breast US: Echotexture: Normal appearance of the glandular tissue. Shadowing: No suspicious foci. Cyst: None. Solid lesions: None seen. Ductal dilation: None. IMPRESSION: 1. No evidence of malignancy is noted. 2. A six-month follow-up left mammogram is requested for re-evaluation. 3. The findings were discussed with the patient on the date of the examination. BI-RADS Category 3 - 6 month - Probably Benign Finding: Recommend follow-up imaging in 6 months Breast Density - Category C - Heterogeneously dense Breast density Category C or D implies that the patient has dense breast tissue. Dense breast tissue can make it harder to find cancer on a mammogram. Dense breast tissue is also associated with an incr eased risk of breast cancer. This information about the result of the mammogram report was provided to the patient to raise their awareness. Use this report when you speak with the patient about their risks for breast cancer, which includes their family history. At that time, you may recommend additional screening tests (Ultrasoun d or MRI) as these tests may add significant information. A negative radiographic report should not delay biopsy if a dominant or clinically suspicious mass is present. Up to ten percent of cancers are not identified on mammography. A negative report may reinforce clinical impression. Adenosis and dense breasts may obscure an underlying neoplasm. False positive reports average 6 to 10%. Patient will receive a letter notifying them of these results.
== END 2022-07-13 01:10 ==
LOC: DI 00:50
PROVIDERS: PCP Nurse Practitioner Family; Visit Provider Nurse Practitioner Family
DX: R92.8 Other abnormal and inconclusive findings on diagnostic imaging of breast (principal)
CPT/HCPCS: 76642; 77063; 77067

== ENCOUNTER 2022-07-16 01:09 | Outpatient (CLI) | payer BC, SELFPAY ==
--- NOTE | 2022-07-16 | DI.CT_ITS ---
Exam(s) CT NECK W EXAM: CT NECK W CLINICAL HISTORY: NECK MASS, CHRONIC COUGH,R05.3,R22.1. TECHNIQUE: Imaging Protocol: Axial computed tomography images with coronal and sagittal reformatted images were created and reviewed. CONTRAST MATERIAL: Intravenous: Omnipaque 350 Contrast volume:100mL COMPARISON: No exams were available for comparison FINDINGS: Orbits and orbital soft tissues: Visualized orbits and retro-orbital soft tissues are unremarkable. Visualized paranasal sinuses: There is a mucous retention cyst or polyp in the right maxillary sinus . The remaining visualized paranasal sinuses and mastoid air cells are clear. Nasopharynx: Within normal limits. Oropharynx: Within normal limits. Hypopharynx: Within normal limits. Larynx: Within normal limits. Retropharyngeal space: Within normal limits. Parotids/submandibular: Within normal limits. Thyroid gland: Within normal limits. Lymphadenopathy: There is scattered lymph nodes seen along the level one to level three all measurin g less than 8 mm in short axis diameter which are physiologic in nature. There is a benign-appearing 0.7 x 0.3 cm lymph node in the posterior neck on the left in the area of the palpable abnormality. N o significant cervical adenopathy is present. Trachea: Within normal limits. Lung apices: Within normal limits. Bones: Within normal limits for the patient's age. Carotids/Jugular: Within normal limits. Mild atherosclerosis. Soft tissues: Within normal limits. No evidence of a soft tissue mass. IMPRESSION: 1. There is a normal 0.7 cm lymph node in the posterior left neck in the area of palpable concern. N o suspicious masses are seen in that area otherwise. 2. No acute abnormality. RADIATION DOSE DELIVERED: 531.39mGy.cm Total DLP 531.39mGy.cm Total DLP DATA REPOSITORY: All CT scans at this facility are submitted to the National Radiology Data Registry (NRDR) Dose Index Registry (DIR) with the [employer] (A[employer]). RADIATION OPTIMIZATION: All CT scans at this facility use at least one of these dose optimization te chniques: automated exposure control; mA and/or kV adjustment per patient size (includes targeted exa ms where dose is matched to clinical indication); or iterative reconstruction.
[2022-07-16 13:40] LABS: CREATININE 0.7 mg/dL (0.55-1.02); Estimated GFR 102.71 (mL/min/1.73m2)
[2022-07-16] MEDS: Omnipaque 350 MG/ML 100 ML BTL IJ (14:15)
[2022-07-16] MEDS: Normal Saline - Diluent 50 ML VIAL IJ (14:15)
== END 2022-07-16 01:29 ==
LOC: DI 01:09
PROVIDERS: PCP Nurse Practitioner Family; Visit Provider Otolaryngology Otolaryngology/Facial Plastic Surgery
DX: R59.0 Localized enlarged lymph nodes (principal); R05.3 Chronic cough; R22.1 Localized swelling, mass and lump, neck
CPT/HCPCS: 70491; 82565; J3490

== ENCOUNTER 2022-07-17 19:56 | Outpatient (REF) | payer BC, SELFPAY ==
[2022-07-17 20:36] LABS: Abs Immature Grans 0.01 10^3/uL (0.0-0.06); Absolute Basophil Count 0.02 10^3/uL (0.0-0.2); Absolute Eosinophil Count 0.05 10^3/uL (0.0-0.7); Absolute Lymphocyte Count 1.54 10^3/uL (1.2-3.4); Absolute Monocyte Count 0.41 10^3/uL (0.1-0.8); Absolute Neutrophil Count 3.89 10^3/uL (1.2-6.7); Basophils % 0.3; Eosinophils % 0.8; HCT 44.7 % (36.0-46.0); HGB 15.2 g/dL (11.2-15.7); Immature Grans % 0.2; MCH 31.4 pg (27.0-33.0); MCV 92 fL (80-95); MPV 10.2 fL (8.0-11.0); Monocytes % 6.9; Neutrophils % 65.8; Platelet Count 281 10^3/uL (130-400); RBC 4.84 10^6/uL (3.93-5.22); RDW-SD 41.1 fL; WBC 5.92 10^3/uL (4.4-10.8)
[2022-07-17 21:17] LABS: ALT 19 U/L (14-59); AST 18 U/L (15-37); Albumin 4.1 g/dL (3.4-5.0); Alkaline Phosphatase 80 U/L (46-116); Anion Gap 7.8 mmol/L (3-11); BUN 12 mg/dL (7-18); Bilirubin, Total 0.5 mg/dL (0.2-1.0); CO2 29.2 mmol/L (21.0-32.0); CREATININE 0.7 mg/dL (0.55-1.02); Calcium 9.7 mg/dL (8.5-10.1); Chloride 101 mmol/L (98-107); Estimated GFR 102.71 (mL/min/1.73m2); Ferritin 40 ng/mL (8-252); Glucose 97 mg/dL (74-106); Magnesium 2.1 mg/dL (1.8-2.4); Sodium 138 mmol/L (136-145); Vitamin B12 960 pg/mL (193-986)
[2022-07-17 21:19] LABS: Folate > 20.0 ng/mL (8.6-20.0)
[2022-07-17 21:22] LABS: Vitamin D 25 Total 34.4 ng/mL (30-100)
[2022-07-17 22:45] LABS: Iron 128 ug/dL (50-170); Total Iron Binding Capacity 335 ug/dL (250-450); Transferrin Sat 38 % (15-50)
== END 2022-07-17 19:57 | disposition home or self-care (01) ==
LOC: NCHCN 19:56
PROVIDERS: PCP Nurse Practitioner Family; Visit Provider Nurse Practitioner Family
DX: E78.5 Hyperlipidemia, unspecified (principal); I10 Essential (primary) hypertension; F41.8 Other specified anxiety disorders; E66.9 Obesity, unspecified; Z86.010 Personal history of colon polyps; R59.1 Generalized enlarged lymph nodes
CPT/HCPCS: 80053; 82306; 82607; 82728; 82746; 83540; 83550; 83735; 84443; 85025

== ENCOUNTER 2022-09-14 00:46 | Outpatient (CLI) | payer BC, SELFPAY ==
--- NOTE | 2022-09-14 13:06 | DI.DEXA_ITS ---
Exam(s) XR DEXA BONE DENSITY W/WO JENNIFER EXAM: XR DEXA BONE DENSITY W/WO JENNIFER CLINICAL HISTORY: HX BARIATRIC SURGERY, Z98.84, OBESITY, E66.9, SCREENING FOR OSTEOPOROSIS TECHNIQUE: Hologic Horizon C densitometer analysis of left hip, lumbar spine and left forearm. Lat eral survey image of the thoracic and lumbar spine. COMPARISON: No exams were available for comparison FINDINGS: Lateral view of the thoracic and lumbar spine shows no evidence of compression fractures. Bone mineral density measurements of the lumbar spine correspond to a total T-score of 0.4, in the n ormal range. Bone mineral density measurements of the left hip correspond to a total T-score of -0.3. The femora l neck T-score is 0.9, in the normal range.. Theleft forearm bone mineral density measurements correspond to a T-score of the distal 3rd of -0.7, in the normal range.. IMPRESSION:
== END 2022-09-14 01:06 ==
LOC: DI 00:46
PROVIDERS: PCP Nurse Practitioner Family; Visit Provider Nurse Practitioner Family
DX: Z13.820 Encounter for screening for osteoporosis (principal); E66.9 Obesity, unspecified; Z98.84 Bariatric surgery status
CPT/HCPCS: 77080

== ENCOUNTER → 2023-03-06 01:14 | Outpatient (CLI) | payer BC, SELFPAY ==
--- NOTE | 2023-03-06 14:39 | DI.MAMMO_ITS ---
Exam(s) MAMMO DIAGNOSTIC UNI EXAM: MAMMO DIAGNOSTIC UNI CLINICAL HISTORY: ABNL MAMMO R92.8 6 MO FU. TECHNIQUE: Craniocaudal and mediolateral oblique Full Field Digital Mammography views of the left br east with Computer Aided Diagnosis. COMPARISON: Comparison is made with prior examinations. FINDINGS: Mammography/Tomosynthesis: Masses/Architectural Distortion: No suspicious nodules or areas of architectural distortion are seen. Microcalcifictions: No suspicious pleomorphic-type are seen. Skin Thickening/Nipple Retraction: None. IMPRESSION: 1. No evidence of malignancy is noted. 2. Unless there is more urgent need, follow-up screening mammography is recommended, as per [place] [employer] guidelines. 3. The findings were discussed with the patient on the date of the examination. BI-RADS Category 1 - Negative Breast Density - Category C - Heterogeneously dense Breast density Category C or D implies that the patient has dense breast tissue. Dense breast tissue can make it harder to find cancer on a mammogram. Dense breast tissue is also associated with an incr eased risk of breast cancer. This information about the result of the mammogram report was provided to the patient to raise their awareness. Use this report when you speak with the patient about their risks for breast cancer, which includes their family history. At that time, you may recommend additional screening tests (Ultrasoun d or MRI) as these tests may add significant information. A negative radiographic report should not delay biopsy if a dominant or clinically suspicious mass is present. Up to ten percent of cancers are not identified on mammography. A negative report may reinforce clinical impression. Adenosis and dense breasts may obscure an underlying neoplasm. False positive reports average 6 to 10%. Patient will receive a letter notifying them of these results.
== END ==
PROVIDERS: PCP Nurse Practitioner Family; Visit Provider Nurse Practitioner Family
DX: R92.8 Other abnormal and inconclusive findings on diagnostic imaging of breast (principal); N64.59 Other signs and symptoms in breast
CPT/HCPCS: 77061; 77065; G0279

== ENCOUNTER 2024-03-16 15:30 | Outpatient (REF) | payer OTHER, SELFPAY ==
[2024-03-16 20:54] LABS: Abs Immature Grans 0.01 10^3/uL (0.0-0.06); Absolute Basophil Count 0.03 10^3/uL (0.0-0.2); Absolute Lymphocyte Count 1.03 10^3/uL (1.2-3.4); Absolute Monocyte Count 0.92 10^3/uL (0.1-0.8); Absolute Neutrophil Count 2.79 10^3/uL (1.2-6.7); Basophils % 0.6 %; HCT 45.1 % (36.0-46.0); HGB 14.8 g/dL (11.2-15.7); Immature Grans % 0.2 %; Lymphocytes % 21.5 %; MCH 29.9 pg (27.0-33.0); MCHC 32.8 % (32.0-36.0); MCV 91 fL (80-95); MPV 10.2 fL (8.0-11.0); Monocytes % 19.2 %; Neutrophils % 58.5 %; Platelet Count 231 10^3/uL (130-400); RBC 4.95 10^6/uL (3.93-5.22); RDW 12.8 % (11.7-14.6); RDW-SD 42.5 fL; WBC 4.78 10^3/uL (4.4-10.8)
[2024-03-16 21:10] LABS: Iron 30 ug/dL (50-170); Total Iron Binding Capacity 324 ug/dL (250-450); Transferrin Sat 9 % (15-50)
[2024-03-16 21:34] LABS: ALT 19 U/L (14-59); AST 19 U/L (15-37); Albumin 3.9 g/dL (3.4-5.0); Alkaline Phosphatase 77 U/L (46-116); Anion Gap 9.7 mmol/L (3-11); BUN 11 mg/dL (7-18); Bilirubin, Total 0.31 mg/dL (0.2-1.0); CO2 27.3 mmol/L (21.0-32.0); CREATININE 0.9 mg/dL (0.55-1.02); Calcium 9.2 mg/dL (8.5-10.1); Calculated LDL 126 mg/dL (<100); Chloride 102 mmol/L (98-107); Cholesterol 214 mg/dL (<200); Estimated GFR 75.03 (mL/min/1.73m2); Ferritin 57 ng/mL (8-252); Folate > 20.0 ng/mL (8.6-20.0); Glucose 101 mg/dL (74-106); HDL Cholesterol 71 mg/dL (40-60); Potassium 3.8 mmol/L (3.5-5.1); Sodium 139 mmol/L (136-145); Total Protein 7.9 g/dL (6.4-8.2); Triglyceride 87 mg/dL (<150); Vitamin B12 564 pg/mL (193-986); Vitamin D 25 Total 28.4 ng/mL (30-100)
== END 2024-03-16 15:31 | disposition home or self-care (01) ==
LOC: NCHCN 15:30
PROVIDERS: PCP Nurse Practitioner Family; Visit Provider Nurse Practitioner Family
DX: I10 Essential (primary) hypertension (principal); E66.9 Obesity, unspecified
CPT/HCPCS: 80053; 80061; 82306; 82607; 82728; 82746; 83540; 83550; 83970; 85025

== ENCOUNTER 2024-04-14 02:25 | Outpatient (CLI) | payer OTHER, SELFPAY ==
--- NOTE | 2024-04-14 | DI.MAMMO_ITS ---
Exam(s) MAMMO SCREENING EXAM: MAMMO SCREENING CLINICAL HISTORY: Screening, Z12.31; preventative care,Z00.00 TECHNIQUE: Bilateral full field digital CC and MLO mammographic images were obtained with 3D tomosyn thesis and utilizing computer aided detection (CAD). COMPARISON: Available for comparison. FINDINGS: Masses/Architectural Distortion: None seen. Microcalcifications: No suspicious pleomorphic-type are seen. Skin Thickening/Nipple Retraction: None. IMPRESSION: 1. No significant interval change with no specific features of malignancy noted. 2. Unless there is more urgent need, screening mammography is recommended, as per [place] [employer] guidelines. BI-RADS Category 1 - Negative Breast Density - Category B - Scattered areas of fibroglandular density Breast density category C or D implies that the patient has dense breast tissue. Dense breast tissue is very common and is not abnormal but dense breast tissue can make it harder to find cancer on a ma mmogram. Also, dense breast tissue may increase their breast cancer risk. This information about the result of the mammogram report was provided to the patient to raise their awareness. Use this report when you speak with the patient about their risks for breast cancer, which includes their family hist ory. At that time, you may recommend for more screening tests (Ultrasound or MRI) as they might be us eful based on their risk. A negative radiographic report should not delay biopsy if a dominant or clinically suspicious mass is present. Up to ten percent of cancers are not identified on mammography. A negative report may reinforce clinical impression. Adenosis and dense breasts may obscure an underlying neoplasm. False positive reports average 6 to 10%. Patient will receive a letter notifying them of these results.
== END 2024-04-14 02:45 ==
PROVIDERS: PCP Nurse Practitioner Family; Visit Provider Family Medicine
DX: Z12.31 Encounter for screening mammogram for malignant neoplasm of breast (principal); R92.323 Mammographic fibroglandular density, bilateral breasts
CPT/HCPCS: 77063; 77067

== ENCOUNTER 2024-05-15 09:17 | Day surgery (SDC) | payer OTHER, SELFPAY ==
--- NOTE | 2024-05-14 12:41 | W.PM.DSUDISC ---
Date of service: 05/15/24 Discharge Plan Disposition Patient Disposition: Home Condition: Good Discharge Details Reason For Visit: screening colonoscopy Attending Provider: Devin Zamora Primary Care Provider: Adelia Esquivel Home Meds and New Rx's Prescriptions: Continued losartan 25 mg tablet 25 mg PO BID Patient Comments: 100 MG DAILY cetirizine [Zyrtec] 10 mg tablet 10 mg PO DAILY Patient Comments: NOT TAKING multivitamin Capsule 1 cap PO DAILY albuterol sulfate [Ventolin HFA] 90 mcg/actuation HFA aerosol inhaler 2 puff IH Q6H PRN bupropion HCl [Wellbutrin XL] 300 mg tablet extended release 24 hr 300 mg PO QAM amlodipine [Norvasc] 10 mg tablet 10 mg PO DAILY levocetirizine [24HR Allergy Relief] 5 mg tablet 5 mg PO DAILY Vitamin D (with calcium) Patient Comments: 2000 units, no calcium Discontinued polyethylene glycol 3350 17 gram/dose powder 238 g PO ONCE Qty: 238 0RF Rx Instructions: take per colonoscopy instructions bisacodyl [Dulcolax (bisacodyl)] 5 mg tablet,delayed release (DR/EC) 5 mg PO ONCE Qty: 4 0RF Rx Instructions: take per colonoscopy instructions Discharge Instructions Instructions: Colon polyps Additional Instructions: Lilliam, was very nice to meet you today, and I hope you feel well after the procedure. Everything went very smoothly. I did find, and removed, 3 polyps today. These will all be sent to the pathologist for their review. Those results usually take about a week or 2, but once we have that information, my office will be in touch with recommendations for future colonoscopies. If you need anything, or have any questions, please do not hesitate to ask. 1. If tolerated, consume a soft, low fiber diet for 1-2 days. [address] not drive, drink alcohol, operate machinery, make critical decisions, or do activities that require coordination or balance for 24 hours. 3. Because air was put into your colon during the procedure, expelling air from your rectum (passing gas or farting) is normal. 4. You may not have a bowel movement for 1-3 days because of the colonoscopy prep. This is normal. 5. Go directly to the emergency room if you notice any of the following: Develop chills (warm to touch), or if you have a thermometer and your temperature is above 101 Difficulty breathing or difficultly swallowing Persistent vomiting Severe abdominal pain, other than gas cramps Severe chest pain Black, tarry stools Any bleeding ? exceeding one tablespoon 6. Call your physician if the site where your intravenous was started becomes red, swollen, painful, and warm to touch. 7. Your physician has reviewed your pre-procedure medications. Please continue to take those medications as previously ordered. You will be given specific information/education regarding any changes to your medications before leaving. Stand Alone Forms: Anesthesia Discharge Inst[place]oyin [place] (DSU) Activity:: Activity as Tolerated Diet:: As Tolerated Discharge Orders Discharge Orders: Discharge Order (Routine); Ordered 05/14/24 Ordered By: Devin Zamora DS: Diagnosis Discharge Diagnosis (1) Encounter for screening colonoscopy: Status: Acute Asessment and Plan: Follow-up on polypectomy results
--- NOTE | 2024-05-14 12:43 | W.COLOREPORT ---
Date of service: 05/15/24 Time of Service: 11:45 Colonoscopy Report Date of procedure: 05/15/24 Pre-op diagnosis general: screening colonoscopy Post-op diagnosis procedure note: other (Colon polyps) Procedure: colonoscopy with polypectomy Surgeon: Devin Zamora Anesthesia Type: General:No Airway Estimated blood loss (mL): 5 Pathology: other (0.25 cm flat polyp at 70 cm, 0.5 cm flat polyp at 40 cm, 0.5 cm flat polyp at 25 cm) Complications: None Disposition: same day Indications: Lilliam is a 54 year old woman who needs a screening colonoscopy Prep: Miralax/Dulcolax Procedure Start Time: 11:13 Procedure End Time: 11:31 Retraction Time: 14 Findings: 0.25 cm flat polyp at 70 cm, 0.5 cm flat polyp at 40 cm, 0.5 cm flat polyp at 25 cm Procedure Description: After the induction of anesthesia, and with the patient in left lateral decubitus position, I began by performing an external anorectal exam.? Perineum and skin were normal, as was the anal verge.?Next, I performed a digital rectal exam.? I did appreciate any abnormal findings.? Next, I advanced a colonoscope into the rectal vault.? I performed retroflexion.? This appeared normal.? Using insufflation, I then advanced the colonoscope beyond the rectal folds and into the sigmoid colon before advancing towards the cecum.? The quality of the prep was excellent.? The scope was noted to be in the cecum by identification of the ileocecal valve and appendiceal orifice.? I then began withdrawing the colonoscope using repeated irrigation as necessary for full evaluation of the colonic mucosa. Around 70 cm from the anal verge I identified a 0.25 cm polyp. ?It appeared flat in character. ?I was able to remove this with a cold forcep polypectomy. ?I examined the site, and there was minimal bleeding. ?Once this was completed, I continued to withdraw the scope and examine the remainder of the colonic mucosa. 2 more polyps were found. One was at 40 cm, the other was at 25 cm. Each of these polyps was about 0.5 cm and flat. Each of these was excised completely with cold snare polypectomy. Specimens were retrieved. There was no worrisome bleeding. Once the scope was withdrawn to the level of the rectum, great care was taken to examine portions of the rectal folds.? Finally, the scope was withdrawn and the patient was brought to the same-day surgery recovery unit as the anesthetic wore off. ?The findings and instructions were shared with the patient prior to discharge. [place] Bowel Prep [place] Bowel Prep Right Colon: 3 Left Colon: 3 Transverse Colon: 3 Total Score: 9
[2024-05-15 09:35] VITALS: BP 141/100; PULSE 114; RESP 20; TEMP 36.5; O2SAT 97
[2024-05-15] MEDS: Lactated Ringers 1,000 ML 80 ML IV (09:50)
--- NOTE | 2024-05-15 10:48 | ANES.PREOP_ITS ---
General Info Date of Service Date Performed: 05/15/24 Height: 5 ft 7 in Weight: 94.9 kg Body Mass Index (BMI): 32.8 Surgical Procedure: Operation Date: 05/15/24 10:35 Proposed Procedure Side Surgeon suzanne Zamora MD Meds Allergies and Home Medications Allergies Allergy/AdvReac Type Severity Reaction Status Date / Time NSAIDS (Non-Steroidal AdvReac Other (See Verified 05/15/24 09:37 Anti-Inflamma Comment) NO BLIND NG PLACEMENT AdvReac Unknown Unknown Uncoded 05/15/24 09:37 Home Medication ?Medication ?Instructions ?Recorded albuterol sulfate 90 mcg/actuation 2 puff inhalation Q6H PRN 04/21/19 aerosol inhaler (Ventolin HFA) cetirizine 10 mg tablet (Zyrtec) 10 mg PO DAILY 04/21/19 losartan 25 mg tablet 25 mg PO BID 04/21/19 multivitamin 1 cap PO DAILY 04/21/19 amlodipine 10 mg tablet (Norvasc) 10 mg PO DAILY 04/24/22 bupropion HCl 300 mg 24 hr tablet, 300 mg PO QAM 04/24/22 extended release (Wellbutrin XL) Vitamin D (with calcium) 05/15/24 levocetirizine 5 mg tablet (24HR 5 mg PO DAILY 05/15/24 Allergy Relief) Current Visit Medications: Current Medications Generic Name Dose Route Start Last Admin Trade Name Freq PRN Reason Stop Dose Admin Ringer's Solution 1,000 mls @ 80 mls/hr 05/15/24 06:00 05/15/24 09:50 IV 05/15/24 23:59 80 mls/hr INFUSION VENECIA Administration IV Miscellaneous Supplies 1 each 05/15/24 06:00 Iv Access IV 05/15/24 23:59 DIRECTED VENECIA Ondansetron HCl 4 mg 05/14/24 12:44 Ondansetron 4 Mg/2 Ml Vial IVP 06/13/24 12:43 Q4H PRN PRN Nausea / Vomiting Sodium Chloride 0 ml 05/15/24 06:00 Normal Saline Flush 10 Ml Syr IV 05/15/24 23:59 PRN PRN Sodium Chloride 0 ml 05/15/24 06:00 Normal Saline 10 Ml Vial IJ 05/15/24 23:59 DIRECTED PRN Sterile Water 0 ml 05/15/24 06:00 Water,Injection,Sterile 10 Ml Vial IJ 05/15/24 23:59 DIRECTED PRN PFSH Active Problems Active Problems: Problem Status Onset Code Encounter for screening colonoscopy Acute Z12.11 Menorrhagia Acute 08/17/15 N92.0 Tubular adenoma Acute ~11/20/19 D36.9 Colon polyps Acute K63.5 Medical History Medical History Anesthesia Per pt. states No blind NG tube, and no NSAIDS because of the gastric bypass Colon cancer screening H/O screening mammography Post-nasal drip Lymphadenopathy Vasomotor symptoms due to menopause Anemia Dysmenorrhea Food allergy not active Scalp lesion Family history of breast cancer Obesity not active Stress incontinence not active Chronic cough Hyperlipidemia Hypertension Anxiety Depression Medical History Comments:: no blind NG insertion. Pt. reports sister just had a recent reaction Surgical History Surgical History Hx of wisdom tooth extraction Hx of bilateral breast reduction surgery History of gastric bypass Tobacco Smoking/Tobacco Use Status: Never Passive smoking exposure: No Alcohol Alcohol Intake: never Substance Use Substance use: Never Substance use type: does not use Vital Signs and Lab Results Vital Signs Most Recent Vital Signs in EMR: Most Recent Vital Signs Temp Pulse Resp BP Pulse Ox 36.5 C 114 H 20 141/100 H 97 05/15/24 09:35 05/15/24 09:35 05/15/24 09:35 05/15/24 09:35 05/15/24 09:35 Lab Results Blood Type / Crossmatch: No Data to Display Complete Blood Count: No Data to Display Complete Metabolic Panel: No Data to Display Liver Function Panel: No Data to Display Coagulation Panel: No Data to Display Cardiac Panel: No Data to Display Arterial Blood Gas: No Data to Display Venous Blood Gas: No Data to Display Pancreas Panel: No Data to Display Thyroid Panel: No Data to Display Infectious Disease: No Data to Display Blood Cultures: No Data to Display Toxicology Panel: No Data to Display Imaging and Studies Imaging and Studies Study information below may be from another EMR and interpreted by another provider. Please see original notes in EMR for more complete details. Pulmonary Function Summary: Pulmonary Function Test PATIENT NAME: JONATHAN MAZA UNIT #: [id number] ADMITTING PROVIDER: BROOKE MURPHY MD PRIMARY CARE PROVIDER: MIKE FULTON DATE OF ADMIT: 06/28/16 : 1970 DATE OF SERVICE June 28, 2016 PRIMARY CARE PROVIDER Karly Riojas N.P. INTERPRETATION OF STUDY Spirometry shows no evidence of obstructive airways disease. No bronchodilator response. LUNG VOLUMES - Lung volumes show no evidence of restriction. DIFFUSION CAPACITY - Elevated. AIRWAY RESISTANCE - Normal. IMPRESSION Isolated elevated diffusion capacity. This can be seen in asthma. Therefore if the diagnosis of asthma is in question, proceeding with methacholine challenge testing may prove to be useful. Shelton Desai/ D - 5 T - 06/29/2016 document embedded image document embedded image Dictated by: BROOKE MURPHY MD Dict Date: 06/28/16 Dict Time: 0000 <Electronically signed by BROOKE MURPHY MD> Date: 06/29/16 Time: 1429 Anesthesia Assessment and Plan Anesthesia History Personal History: Other (Reports severe anxiety around use of straps on arm boards or feeling tied down. ) Family History: No Family History of Anesthesia Complications Exercise Tolerance Exercise Tolerance: Metabolic Equivalents>4 Pertinent Negatives Pertinent Negatives: No Symptoms of GERD Cardiac & Pulmonary Exam Cardiac Exam: Normal S1/S2 Heart Sounds Pulmonary Exam: Clear Bilateral Breath Sounds and Active Dry Cough Implantable Cardiac Device Does patient have a Pacemaker or an ICD?: No Airway Exam Known Difficult Airway: No Mallampati Class: 2 Mouth Opening: Normal (> 3cm) Thyromental Distance: Greater than 3 cm Neck Range of Motion: Full ROM Neck Circumference: Normal Teeth Condition: Normal Dentition ASA Classification ASA Score: ASA 2 Emergency Case?: No NPO Status NPO Status: NPO Clears >2 hours, Solids >8 hours Anesthesia Plan Resuscitation Status: Full Code Anesthesia Technique: General Anesthesia Airway Planned: Natural Airway Monitors Used: Standard Monitors
[2024-05-15 10:49] VITALS: BMI 32.8
--- NOTE | 2024-05-15 11:24 | BOWEL_PTH ---
PATIENT: Lilliam Munguia LOC: [facility] U#:[id number] AGE/SX: 54/F ROOM: RE05/15/[address]: Devin Zamora MD : 1970 BED: DIS: 05/15/2024 SPEC #: [id number] RECD: 05/15/24 12:49 STATUS: CLEMENCIA REQ #: [id number] ADAM: 05/15/24 11:[address]: Devin Zamora DEPT: Surgical Specimen RECD BY: Neda Cannon ENTERED: 05/15/24 12:51 SP TYPE: Bowel OTHR DR: Adelia Esquivel Tissues: 1 - BIOPSY BOWEL 2 - BIOPSY BOWEL 3 - BIOPSY BOWEL Procedures: GROSS AND MICRO LEVEL 4 Comments: [id number]
[2024-05-15 11:35] VITALS: BP 114/78; PULSE 87; RESP 16; TEMP 36.5; O2SAT 95
[2024-05-15 12:03] VITALS: BP 137/85; PULSE 80; RESP 20; TEMP 36.4; O2SAT 98
--- NOTE | 2024-05-15 15:27 | W.ANESPOSTOP ---
Postoperative Evaluation Date, Time and Location Date Performed: 05/15/24 Time Performed: 15:28 Patient Location: Day Surgery Unit Vital Signs Most Recent Imported Vital Signs: Most Recent Vital Signs Temp Pulse Resp BP Pulse Ox 36.4 C L 80 20 137/85 98 05/15/24 12:03 05/15/24 12:03 05/15/24 12:03 05/15/24 12:03 05/15/24 12:03 Pain Score Most Recent Pain Score: Most Recent Pain Score Pain Level 0 05/15/24 12:03 Assessment Mental Status: Awake (Alert & Oriented to Patient Baseline) Airway and Respiratory Function: Patent airway with normal (patient baseline) respiratory exam Cardiovascular Function: Hemodynamically Stable Hydration Status: Adequately Hydrated Nausea & Vomiting: No Nausea or Vomiting Pain: Pt. Denies Any Pain Peripheral Nerve Block: Patient did not receive a nerve block
== END 2024-05-15 12:24 | disposition home or self-care (01) ==
LOC: SUR 09:18
PROVIDERS: PCP Nurse Practitioner Family; Visit Provider Surgery
PROC: 0DJD8ZZ Inspection of Lower Intestinal Tract, Via Natural or Artificial Opening Endoscopic (ICD-10-PCS; CPT 45378; principal; 2024-05-15 10:30)
DX: Z12.11 Encounter for screening for malignant neoplasm of colon (principal); D12.5 Benign neoplasm of sigmoid colon; D12.4 Benign neoplasm of descending colon
CPT/HCPCS: 45380; 45385; 88305; J2704